=== PATIENT | male | born 1995 | race Caucasian/White ===

== ENCOUNTER 2024-11-03 21:29 | Emergency (ER) | payer OTHER ==
--- OUTSIDE RECORDS SUMMARY | 2024-11-03 21:34 | XMS REPORT | Continuity of Care Document ---
Author Name Unknown Address [address] [facility] [place] [address] [facility] [place] Address [address] [facility] [place] [address] Care Team Providers Care Legal Department Manager Name Role Phone PCP, PATIENT DOES NOT HAVE A Primary Care Physic nigel Oden RN, Emely Montero Attending Clinician [phone] NIRMAL KELLEY Attending Clinician Mariana Kaminski Attending Clinician [phone] Med Ponce MD Attending Clinician [phone] KALYN LIMA Attending Clinician Unavailable KALYN LIMA Attending Clinician Unavailable NIRMAL KELLEY Admitting Clinician Med Valentin MD Admitting Clinician [phone] KALYN LIMA Admitting Clinician Unavailable Payers Payer Name Policy Type Policy Number Effective Date Expirati on Date Source [employer] [id number] 2024 00:00:00 Problems Condition Name Condition Details Condition Category Status Onset Date Resolution Date Last Treatment Date Treating Clinician Comments Source Alcoholic cirrhosis of liver with ascites Alcoholic cirrhosis of liver with ascites Disease Active 10-10 00:00: 00 [facility] Alcoholic cirrhosis, unspecifie d whether ascites present Alcoholic cirrhosis, unspecifie d whether ascites present Disease Active 09-29 00:00: 00 [facility] Allergies, Adverse Reactions, Alerts Allergy Name Allergy Type Status Severity Reaction(s) Onset Date Inactive Date Treating Clinician Comments Source Avocado Propensi ty to adverse reaction s Active Anaphylaxis 08-30 00:00: 00 [facility] Pecan Nut Propensi ty to adverse reaction s Active Swelling 08-30 00:00: 00 [facility] AVOCADO DRUG INGREDI Active Anaphylaxis 08-30 00:00: 00 [facility] PECAN NUT DRUG INGREDI Active Swelling 08-30 00:00: 00 [facility] Social History Social Habit Start Date Stop Date Quantity Comments Source [facility] of tobacco use Passive smoker [facility] History of Social function 2024-10-10 00:00:00 2024-10-10 00:00:00 [facility] Tobacco use and exposure 2024-09-29 00:00:00 2024-09-29 00:00:00 Smokeless tobacco non-user [facility] Sex assigned at 1995 00:00:00 1995 00:00:00 [facility] Smoking Status Start Date Stop Date Source Tobacco smoking consumption unknown [facility] Smokes tobacco daily 2024-09-29 00:00:00 [facility] Medications Ordered Medication Name Filled Medication Name Start Date Stop Date Current Medication? Ordering Clinician Indication Dosage Frequency Signature (SIG) Comments Components Source Potassium Bicarb-Citr ic Acid (EFFER-K) effervescen t tablet 40 mEq Potassium Bicarb-Citr ic Acid (EFFER-K) effervescen t tablet 40 mEq 10-13 00:45: 00 10-13 01:02 :00 Yes 40meq 40 mEq, Oral, ONCE, 1 dose, On [facility] 10/12/24 at 1945, Routine [facility] spironolact one (ALDACTONE) tablet 100 mg spironolact one (ALDACTONE) tablet 100 mg 10-12 14:00: 00 10-14 23:07 :03 Yes 100mg 100 mg, Oral, DAILY, First dose (after last modificati on) on [facility] 10/12/24 at 0900, Until Discontinu ed, Routine [facility] furosemide (LASIX) tablet 40 mg furosemide (LASIX) tablet 40 mg 10-12 14:00: 00 10-14 23:07 :03 Yes 40mg 40 mg, Oral, DAILY, First dose (after last modificati on) on Mon10/12/24 at 0900, Until Discontinu ed, Routine [facility] oxyCODONE immediate release tablet 5 mg oxyCODONE immediate release tablet 5 mg 10-12 13:42: 49 10-14 23:07 :03 Yes 5mg 5 mg, Oral, Q6HPRN, Starting on Mon10/12/24 at 0842, Until Mon10/14/24 at 1807, Routine, Pain (scale 7-10), 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 change 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 member 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 Restricted medication : KAELYN BOWERS [facility] propranoloL (INDERAL) tablet 20 mg propranoloL (INDERAL) tablet 20 mg 10-12 01:00: 00 10-14 23:07 :03 Yes 20mg 20 mg, Oral, BID, First dose on Mon10/11/24 at 2000, Until Discontinu ed, Routine [facility] magnesium oxide (MAG-OX 400) 400 mg (241.3 mg magnesium) tablet 400 mg magnesium oxide (MAG-OX 400) 400 mg (241.3 mg magnesium) tablet 400 mg 10-11 15:30: 00 10-14 23:07 :03 Yes 400mg 400 mg, Oral, DAILY, First dose on Mon10/11/24 at 1030, Until Discontinu ed, Routine [facility] foLIC acid (FOLATE) tablet 1 mg foLIC acid (FOLATE) tablet 1 mg 10-11 14:00: 00 10-14 23:07 :03 Yes 1mg 1 mg, Oral, DAILY, First dose on Mon10/11/24 at 0900, Until Discontinu ed, Routine [facility] thiamine mononitrate (VITAMIN B-1 (MONONITRAT E)) tablet 100 mg thiamine mononitrate (VITAMIN B-1 (MONONITRAT E)) tablet 100 mg 10-11 14:00: 00 10-14 23:07 :03 Yes 100mg 100 mg, Oral, DAILY, First dose on Mon10/11/24 at 0900, Until Discontinu ed, Routine [facility] spironolact one (ALDACTONE) tablet 50 mg spironolact one (ALDACTONE) tablet 50 mg 10-11 14:00: 00 10-11 23:41 :48 Yes 50mg 50 mg, Oral, DAILY, First dose on Mon10/11/24 at 0900, Until Discontinu ed, Routine [facility] furosemide (LASIX) tablet 20 mg furosemide (LASIX) tablet 20 mg 10-11 14:00: 00 10-11 23:41 :48 Yes 20mg 20 mg, Oral, DAILY, First dose on Mon10/11/24 at 0900, Until Discontinu ed, Routine [facility] cefTRIAXone (ROCEPHIN) 2,000 mg in sterile water for injection 20 mL IV Push cefTRIAXone (ROCEPHIN) 2,000 mg in sterile water for injection 20 mL IV Push 10-11 09:45: 00 10-14 09:56 :00 Yes 2000mg 2,000 mg, Intravenou s, Q24H ABX, 4 doses, First dose (after last modificati on) on Mon10/11/24 at 0445, Last dose on Mon10/14/24 at 0445, 20 mL, Reason for Anti-Infec tive: Documented Infection, Documented Infection Site: Abdominal, Duration of therapy: Other (days), Other (days): 5 [facility] enoxaparin (LOVENOX) injection 40 mg enoxaparin (LOVENOX) injection 40 mg 10-10 22:00: 00 10-14 23:07 :03 Yes 40mg 40 mg, Subcutaneo us, DAILY AT 1700, First dose on Mon10/10/24 at 1700, Until Discontinu ed, Routine [facility] albumin (ALBUMINAR) 25 % injection 12.5 g albumin (ALBUMINAR) 25 % injection 12.5 g 10-10 16:30: 00 10-10 19:00 :00 Yes 12.5g 12.5 g, IV Infusion, ONCE, 1 dose, On Mon10/10/24 at 1130, 50 mL, Indication : NON-APPROV ED INDICATION - PHARMACY WILL CALL ORDERING PROVIDER, Specific Indication : Volume depletion in alcoholic cirrhosis/ hepatitis, Faculty Requesting Approval: MED PONCE, job change crew member approving Restricted medication : MED PONCE [facility] predniSONE (DELTASONE) tablet 40 mg predniSONE (DELTASONE) tablet 40 mg 10-10 15:45: 00 10-14 23:07 :03 Yes 40mg 40 mg, Oral, DAILY, 22 doses, First dose (after last modificati on) on [facility] 10/10/24 at 1045, Last dose on [facility] 10/31/24 at 0900, Routine [facility] oxazepam (SERAX) capsule 15 mg 10-10 15:33: 51 10-14 23:07 :03 No 15mg 15 mg, Oral, Q4HPRN, Starting on [facility] 10/10/24 at 1033, Until Mon10/14/24 at 1807, Routine, Only while awake for DBP equal to or greater than 100, HR equal to or greater than 100. [facility] metroNIDAZO LE in NaCl (iso-os) (FLAGYL I.V.) RTU IV infusion 500 mg metroNIDAZO LE in NaCl (iso-os) (FLAGYL I.V.) RTU IV infusion 500 mg 10-10 14:45: 00 10-11 23:44 :05 Yes 500mg 500 mg, IV Infusion, Q12H ABX, First dose on [facility] 10/10/24 at 0945, Until Discontinu ed, Administer over 60 Minutes, 100 mL, Reason for Anti-Infec tive: Documented Infection, Documented Infection Site: Abdominal, Duration of therapy: 7 days [facility] cefTRIAXone (ROCEPHIN) 1,000 mg in sterile water for injection 10 mL IV Push 10-10 10:30: 00 10-10 09:49 :00 No 1000mg 1,000 mg, Intravenou s, ONCE, 1 dose, On [facility] 10/10/24 at 0530, 10 mL, Reason for Anti-Infec tive: Empiric Therapy for Suspected Infection, Empiric Therapy Site: Abdominal, Duration of therapy: Once (ED) [facility] NaCl 0.9% (NS) IV infusion 1,000 mL 10-10 09:45: 00 10-10 15:32 :20 No 1000mL at 50 mL/hr, IV Infusion, CONTINUOUS , Starting on Mon10/10/24 at 0445, Until Mon10/10/24 at 1032, Routine [facility] ondansetron (ZOFRAN (PF)) injection 4 mg ondansetron (ZOFRAN (PF)) injection 4 mg 10-10 09:34: 04 10-14 23:07 :03 Yes 4mg 4 mg, Slow IV Push, Q6HPRN, Starting on Mon10/10/24 at 0434, Until Mon10/14/24 at 1807, Administer over 2-5 Minutes, 2 mL [facility] traMADoL (ULTRAM) tablet 50 mg traMADoL (ULTRAM) tablet 50 mg 10-10 09:33: 38 10-14 23:07 :03 Yes 50mg 50 mg, Oral, Q8HPRN, Starting on Mon10/10/24 at 0433, Until Mon10/14/24 at 1807, Routine, Pain (scale 4-6) [facility] acetaminoph en (TYLENOL) tablet 650 mg 10-10 09:33: 31 10-14 23:07 :03 No 650mg 650 mg, Oral, Q6HPRN, Starting on Mon10/10/24 at 0433, Until Mon10/14/24 at 1807, Routine, Pain (scale 1-3) [facility] iopamidol (ISOVUE 370-500 mL) injection 80 mL 10-10 07:45: 00 10-10 07:45 :00 No [id number] 80mL 80 mL, Intravenou s, ONCE, 1 dose, On Mon10/10/24 at 0245, Routine [facility] ondansetron (ZOFRAN (PF)) injection 4 mg 10-10 07:45: 00 2025- 07-17 06:39 :00 No 4mg 4 mg, Slow IV Push, ONCE, 1 dose, On Mon10/10/24 at 0245, 2 mL [facility] morpHINE (4 mg/mL) injection 4 mg morpHINE (4 mg/mL) injection 4 mg 10-10 06:32: 23 10-14 23:07 :03 Yes 4mg 4 mg, Slow IV Push, Q4HPRN, Starting on Mon10/10/24 at 0132, Until 10/14/24 at 1807, Routine, Pain (scale 7-10) [facility] thiamine mononitrate 100 mg tablet 10-04 00:00: 00 Yes [id number] 100mg Take 1 tablet by mouth in the morning. [facility] lactulose 10 gram/15 mL solution 10-04 00:00: 00 Yes [id number] 30mL Take 30 mL by mouth in the morning and 30 mL in the evening. [facility] foLIC acid 1 mg tablet 10-04 00:00: 00 Yes [id number] 1mg Take 1 tablet by mouth in the morning. [facility] polyethylen e glycol 3350 17 gram powder 10-04 00:00: 00 Yes [id number] 17g Take 1 Packet by mouth in the morning. [facility] pantoprazol e 40 mg EC tablet 10-04 00:00: 00 11-04 04:59 :00 Yes [id number] 40mg Take 1 tablet by mouth in the morning and 1 tablet in the evening. Do all this for 30 days. [facility] predniSONE 20 mg tablet 10-04 00:00: 00 11-02 04:59 :00 Yes [id number] 40mg Take 2 tablets by mouth in the morning for 28 days. [facility] predniSONE (DELTASONE) tablet 40 mg predniSONE (DELTASONE) tablet 40 mg 10-03 14:30: 00 Yes 40mg 40 mg, Oral, DAILY, First dose (after last modificati on) on Mon10/03/24 at 0930, Until Discontinu ed, Routine [facility] pantoprazol e (PROTONIX) EC tablet 40 mg pantoprazol e (PROTONIX) EC tablet 40 mg 10-03 13:00: 00 Yes 40mg 40 mg, Oral, BID, First dose on Mon10/03/24 at 0800, Until Discontinu ed, Routine [facility] diphenhydrA MINE (BENADRYL) tablet 25 mg diphenhydrA MINE (BENADRYL) tablet 25 mg 10-03 10:21: 26 10-04 13:00 :43 Yes 25mg 25 mg, Oral, Q6HPRN, Starting on Mon10/03/24 at 0521, Until Mon10/04/24 at 0800, Routine, Itching [facility] hydrOXYzine (ATARAX) tablet 25 mg hydrOXYzine (ATARAX) tablet 25 mg 10-03 04:19: 54 10-03 10:21 :44 Yes 25mg 25 mg, Oral, Q6HPRN, Starting on Mon10/02/24 at 2319, Until Mon10/03/24 at 0521, Routine, Itching [facility] lactulose (CEPHULAC) solution 30 mL lactulose (CEPHULAC) solution 30 mL 10-02 16:00: 00 Yes 30mL 30 mL, Oral, BID, First dose (after last modificati on) on Mon10/02/24 at 1100, Until Discontinu ed, [facility]ine [facility] predniSONE (DELTASONE) tablet 20 mg predniSONE (DELTASONE) tablet 20 mg 10-02 15:45: 00 10-03 13:27 :03 Yes 20mg 20 mg, Oral, DAILY, First dose on Mon10/02/24 at 1045, Until Discontinu ed, Routine [facility] polyethylen e glycol 3350 powder 17 g polyethylen e glycol 3350 powder 17 g 10-02 14:00: 00 Yes 17g 17 g, Oral, DAILY, First dose on Mon10/02/24 at 0900, Until Discontinu ed, Routine [facility] bisacodyL (DULCOLAX) tablet 5 mg bisacodyL (DULCOLAX) tablet 5 mg 10-01 19:15: 00 10-01 20:35 :00 Yes 5mg 5 mg, Oral, ONCE, 1 dose, On Mon10/01/24 at 1415, Routine [facility] magnesium sulfate in water 4 gram/50 mL (8 %) IV Piggyback 4 g magnesium sulfate in water 4 gram/50 mL (8 %) IV Piggyback 4 g 10-01 16:45: 00 10-01 18:03 :00 Yes 4g 4 g, IV Piggyback, at 25 mL/hr Administer over 120 Minutes, ONCE, 1 dose, On Mon10/01/24 at 1145, Routine [facility] KCL (KLOR-CON M20) tablet 40 mEq KCL (KLOR-CON M20) tablet 40 mEq 10-01 16:15: 00 10-01 17:53 :00 Yes 40meq 40 mEq, Oral, ONCE, 1 dose, On Mon10/01/24 at 1115, Routine [facility] KCL (KLOR-CON M20) tablet 40 mEq KCL (KLOR-CON M20) tablet 40 mEq 10-01 13:00: 00 10-01 13:11 :00 Yes 40meq 40 mEq, Oral, ONCE, 1 dose, On Mon10/01/24 at 0800, Routine [facility] foLIC acid (FOLATE) tablet 1 mg foLIC acid (FOLATE) tablet 1 mg 09-30 14:00: 00 Yes 1mg 1 mg, Oral, DAILY, First dose on Mon09/30/24 at 0900, Until Discontinu ed, Routine [facility] thiamine mononitrate (VITAMIN B-1 (MONONITRAT E)) tablet 100 mg thiamine mononitrate (VITAMIN B-1 (MONONITRAT E)) tablet 100 mg 09-30 14:00: 00 Yes 100mg 100 mg, Oral, DAILY, First dose on Mon09/30/24 at 0900, Until Discontinu ed, Routine [facility] acetaminoph en (TYLENOL) tablet 650 mg acetaminoph en (TYLENOL) tablet 650 mg 09-30 12:32: 00 09-30 13:15 :00 Yes 650mg 650 mg, Oral, ONCE NOW, 1 dose, On Mon09/30/24 at 0745, Routine [facility] NaCl 0.9% (NS) IV infusion 1,000 mL 09-30 03:15: 00 09-30 23:14 :00 No 1000mL at 50 mL/hr, IV Infusion, CONTINUOUS , Starting on Mon09/29/24 at 2215, Until Mon09/30/24 at 1814, Routine [facility] pantoprazol e (PROTONIX) 40 mg in NaCl 0.9% (NS) 10 mL syringe pantoprazol e (PROTONIX) 40 mg in NaCl 0.9% (NS) 10 mL syringe 09-30 02:15: 00 10-03 10:22 :17 Yes 40mg 40 mg, Slow IV Push, Administer over 2 Minutes, Q12H, First dose on Mon09/29/24 at 2115, Until Discontinu ed, Routine [facility] enoxaparin (LOVENOX) injection 40 mg enoxaparin (LOVENOX) injection 40 mg 09-29 22:00: 00 10-04 13:00 :43 Yes 40mg 40 mg, Subcutaneo us, DAILY AT 1700, First dose on Mon09/29/24 at 1700, Until Discontinu ed, Routine [facility] albumin (ALBUMINAR) 25 % injection 25 g 09-29 21:00: 00 09-29 21:43 :00 No 25g 25 g, IV Infusion, ONCE, 1 dose, On Mon09/29/24 at 1600, 100 mL, Indication : NON-APPROV ED INDICATION - PHARMACY WILL CALL ORDERING PROVIDER, Specific Indication : Intravascu lar volume depletion in cirrhosis, Faculty Requesting Approval: MED PONCE, job change crew member approving Restricted medication : MED PONCE [facility] oxazepam (SERAX) capsule 15 mg oxazepam (SERAX) capsule 15 mg 09-29 19:00: 20 10-04 13:00 :43 Yes 15mg [facility] ondansetron (ZOFRAN (PF)) injection 4 mg ondansetron (ZOFRAN (PF)) injection 4 mg 09-29 19:00: 15 10-04 13:00 :43 Yes 4mg 4 mg, Slow IV Push, Q6HPRN, Starting on Mon09/29/24 at 1400, Until Mon10/04/24 at 0800, Administer over 2-5 Minutes, 2 mL [facility] morpHINE (4 mg/mL) injection 4 mg morpHINE (4 mg/mL) injection 4 mg 09-29 19:00: 03 10-04 13:00 :43 Yes 4mg 4 mg, Slow IV Push, Q4HPRN, Starting on Mon09/29/24 at 1400, Until Mon10/04/24 at 0800, Routine, Pain (scale 7-10) [facility] traMADoL (ULTRAM) tablet 50 mg traMADoL (ULTRAM) tablet 50 mg 09-29 18:59: 58 10-04 13:00 :43 Yes 50mg 50 mg, Oral, Q8HPRN, Starting on Mon09/29/24 at 1359, Until Mon10/04/24 at 0800, Routine, Pain (scale 4-6) [facility] iopamidol (ISOVUE 370-500 mL) injection 85 mL 09-29 18:15: 00 09-29 18:15 :00 No [id number] 85mL 85 mL, Intravenou s, ONCE, 1 dose, On Mon09/29/24 at 1315, Routine [facility] ondansetron (ZOFRAN (PF)) injection 4 mg 09-29 17:30: 00 09-29 17:47 :00 No 4mg 4 mg, Slow IV Push, ONCE, 1 dose, On Mon09/29/24 at 1230, Administer over 2-5 Minutes, 2 mL [facility] maalox/diph enhydrAMINE :lidocaine2 %viscous 1:1:1: suspension (COMPOUNDED ) 08-30 18:15: 00 08-30 18:16 :00 No 15mL 15 mL, Oral, ONCE, 1 dose, On Mon08/30/24 at 1315, RAYMOND [facility] pantoprazol e (PROTONIX) 40 mg in NaCl 0.9% (NS) 10 mL syringe 08-30 18:15: 00 08-30 18:20 :00 No 40mg 40 mg, Slow IV Push, Administer over 2 Minutes, ONCE, 1 dose, On Mon08/30/24 at 1315[facility] (ISOVUE 370-500 mL) injection 85 mL 08-30 17:30: 00 08-30 17:30 :00 No [id number] 85mL 85 mL, Intravenou s, ONCE, 1 dose, On Mon08/30/24 at 1230, Routine [facility] LORazepam (ATIVAN) injection 1 mg 08-30 16:00: 00 08-30 15:47 :00 No 1mg 1 mg, Slow IV Push, ONCE, 1 dose, On Mon08/30/24 at 1100, STAT [facility] chlordiazeP OXIDE 10 mg capsule 08-30 00:00: 00 09-29 00:00 :00 No [id number] Day 1 10 mg q6 Day 2 10 mg q8 Day 3 10 mg q8 Day 4 10 mg q8 Day 5 10 mg q12 [facility] pantoprazol e 40 mg EC tablet 08-30 00:00: 00 09-29 00:00 :00 No [id number] 40mg Take 1 tablet by mouth in the morning. [facility] ondansetron 4 mg disintegrat ing tablet 08-30 00:00: 00 09-29 00:00 :00 No [id number] 4mg Take 1 tablet by mouth every 4 hours as needed for Nausea and Vomiting (N/V). [facility] sucralfate 1 gram tablet 08-30 00:00: 00 09-29 00:00 :00 No [id number] 1g Take 1 tablet by mouth before meals and at bedtime. [facility] Vital Signs Vital Name Observation Time Observation Value Comments Mitch jimenez Systolic blood pressure 2024-10-14 20:37:00 109 mm[Hg] [facility] Diastolic blood pressure 2024-10-14 20:37:00 57 mm[Hg] [facility] Heart rate 2024-10-14 20:37:00 55 /min Un[facility] Body temperature 2024-10-14 20:37:00 36.56 Kamilah [facility] Respiratory rate 2024-10-14 20:37:00 16 /min [facility] Oxygen saturation in Arterial blood by Pulse oximetry 2024-10-14 20:37:00 99 /min [facility] Body weight 2024-10-14 08:21:00 73.982 kg [facility] BMI 2024-10-14 08:21:00 25.55 kg/m2 [facility] Body height 2024-10-10 06:28:00 170.2 cm [facility] Systolic blood pressure 2024-10-04 12:09:00 124 mm[Hg] [facility] Diastolic blood pressure 2024-10-04 12:09:00 84 mm[Hg] [facility] Heart rate 2024-10-04 12:09:00 95 /min [facility] Body temperature 2024-10-04 12:09:00 37.22 Kamilah [facility] Respiratory rate 2024-10-04 12:09:00 19 /min [facility] Oxygen saturation in Arterial blood by Pulse oximetry 2024-10-04 12:09:00 94 /min [facility] Body weight 2024-10-04 09:00:00 74.481 kg [facility] BMI 2024-10-04 09:00:00 25.72 kg/m2 [facility] Body height 2024-10-01 17:11:00 170.2 cm [facility] Systolic blood pressure 2024-08-30 19:00:00 124 mm[Hg] [facility] Diastolic blood pressure 2024-08-30 19:00:00 71 mm[Hg] [facility] Heart rate 2024-08-30 19:00:00 94 /min [facility] Body temperature 2024-08-30 19:00:00 36.39 Kamilah [facility] Respiratory rate 2024-08-30 19:00:00 16 /min [facility] Oxygen saturation in Arterial blood by Pulse oximetry 2024-08-30 19:00:00 94 /min [facility] Body height 2024-08-30 15:07:00 170.2 cm [facility] Body weight 2024-08-30 15:07:00 74.844 kg [facility] BMI 2024-08-30 15:07:00 25.84 kg/m2 [facility] Procedures Procedure Date / Time Performed Performing Clinician Source US ABDOMEN LIMITED 2024-10-14 13:22:55 Kaelyn Bowers [facility] MAGNESIUM 2024-10-14 09:50:00 Michelle Lopez [facility] COMP. METABOLIC PANEL ([id number]) 2024-10-14 09:50:00 Kaelyn Bowers [facility] CBC WITH DIFF 2024-10-14 09:50:00 Kaelyn Bowers [facility] MAGNESIUM 2024-10-13 10:02:00 Kaelyn Bowers [facility] COMP. METABOLIC PANEL ([id number]) 2024-10-13 10:02:00 Kaelyn Bowers [facility] CBC WITH DIFF 2024-10-13 10:02:00 Kaelyn Bowers [facility] PROTHROMBIN TIME / INR 2024-10-13 10:02:00 Jayy Bowers [facility] MAGNESIUM 2024-10-12 09:27:00 Kris Med [facility] HEPATIC FUNCTION PANEL ([id number]) (ALB,T.PRO,BILI T,BU/BC,ALT,AST,ALK PHOS) 2024-10-12 09:27:00 Med Ponce [facility] BASIC METABOLIC PANEL (NA, K, CL, CO2, GLUCOSE, BUN, CREATININE, CA) 2024-10-12 09:27:00 Med Ponce [facility] CBC WITH DIFF 2024-10-12 [facility] 2024-10-11 09:07:00 Edgar Kelley mmad [facility] LIPASE 2024-10-11 08:59:00 Nirmal Kelley [facility] MAGNESIUM 2024-10-11 08:59:00 Nirmal Kelley [facility] COMP. METABOLIC PANEL ([id number]) 2024-10-11 08:59:00 Nirmal Kelley [facility] CBC WITH DIFF 2024-10-11 08:59:00 [facility]irm[facility] / INR 2024-10-11 08:59:00 Rojelio Kelley [facility] ACTIVATED PARTIAL THRMPLAS RAKESH 2024-10-11 08:59:00 Nirmal Kelley [facility] IR PARACENTESIS/PERITONECEN TESIS WITH IMAGING 2024-10-10 18:20:00 Irlanda Nikko [facility] ALBUMIN BODY FLUID 2024-10-10 18:10:00 Irlanda Nikko [facility] T.PROTEIN BODY FLUID 2024-10-10 18:10:00 Maris Ponce i [facility] BODY FLUID DIRECT COUNT 2024-10-10 18:10:00 Jairo Ponce [facility] BODY FLUID CULTURE(AEROBIC/ANAEROBI C) 2024-10-10 18:10:00 Med Ponce [facility] LDH TOTAL BODY FLUID 2024-10-10 18:10:00 Maris Ponce i [facility] CYTO ABDOMINAL FLUID 2024-10-10 17:43:00 Maris Ponce i [facility] MA ABDOM PARACENTESIS DX/THER W/IMAGING GUIDANCE 2024-10-10 10:05:00 Perdomo, [facility] CT ABDOMEN PELVIS W CONTRAST 2024-10-10 06:54:39 Singer [facility] LIPASE 2024-10-10 06:36:00 Singer [facility] BILI UNCONJUGATED/BILI CONJUG 2024-10-10 06:36:00 Singer [facility] COMP. METABOLIC PANEL ([id number]) 2024-10-10 06:36:00 Singer [facility] CBC WITH DIFF 2024-10-10 06:36:00 Singer [facility] [facility] PROTHROMBIN TIME / INR 2024-10-10 06:36:00 Singer [facility] LACTIC ACID WITH 2 HOUR REFLEX 2024-10-10 06:36:00 Singer [facility] HEPATIC FUNCTION PANEL ([id number]) (ALB,T.PRO,BILI T,BU/BC,ALT,AST,ALK PHOS) 2024-10-04 09:26:00 Aleshia Lainez [facility] BASIC METABOLIC PANEL (NA, K, CL, CO2, GLUCOSE, BUN, CREATININE, CA) 2024-10-04 09:26:00 Aleshia Lainez Rachel [facility] AMMONIA, PLASMA 2024-10-03 14:10:00 Aleshia Lainez [facility] PROTHROMBIN TIME / INR 2024-10-03 08:41:00 Kostas Lainez Rachel [facility] HEPATIC FUNCTION PANEL ([id number]) (ALB,T.PRO,BILI T,BU/BC,ALT,AST,ALK PHOS) 2024-10-03 08:41:00 Aleshia Lainez [facility] BASIC METABOLIC PANEL (NA, K, CL, CO2, GLUCOSE, BUN, CREATININE, CA) 2024-10-03 08:41:00 Aleshia Lainez [facility] CBC WITH DIFF 2024-10-03 08:41:00 Aleshia Lainez [facility] MAGNESIUM 2024-10-02 08:23:00 [facility]ASMA 2024-10-02 08:23:00 Aleshia Lainez [facility] COMP. METABOLIC PANEL ([id number]) 2024-10-02 08:23:00 Kaelyn Bowers [facility] CBC WITH DIFF 2024-10-02 08:23:00 Kaelyn Bowers [facility] PROTHROMBIN TIME / INR 2024-10-02 08:23:00 Jayy Bowers [facility] MAGNESIUM 2024-10-01 08:43:00 Gilda oLpez [facility] HEPATIC FUNCTION PANEL ([id number]) (ALB,T.PRO,BILI T,BU/BC,ALT,AST,ALK PHOS) 2024-10-01 08:43:00 Gilda Lopez [facility] BASIC METABOLIC PANEL (NA, K, CL, CO2, GLUCOSE, BUN, CREATININE, CA) 2024-10-01 08:43:00 Gilda Lopez [facility] ALPHA FETOPROTEIN 2024-10-01 08:43:00 Nirmal Kelley [facility] CBC WITH DIFF 2024-10-01 08:43:00 Gilda Lopez [facility] PROTHROMBIN TIME / INR 2024-10-01 08:43:00 Gregor Lopez [facility] MAGNESIUM 2024-09-30 08:52:00 Med Ponce [facility] HEPATIC FUNCTION PANEL ([id number]) (ALB,T.PRO,BILI T,BU/BC,ALT,AST,ALK PHOS) 2024-09-30 08:52:00 Med Ponce [facility] BASIC METABOLIC PANEL (NA, K, CL, CO2, GLUCOSE, BUN, CREATININE, CA) 2024-09-30 08:52:00 Med Ponce [facility] CBC WITH DIFF 2024-09-30 08:52:00 Med Ponce [facility] CT ABDOMEN PELVIS W CONTRAST 2024-09-29 17:59:47 Mariana Gamez [facility] ACTIVATED PARTIAL THRMPLAS RAKESH 2024-09-29 17:39:00 Mariana Gamez [facility] LIPASE 2024-09-29 17:39:[address] [facility] MAGNESIUM 2024-09-29 17:39:00 Mariana Gamez [facility] AMMONIA, PLASMA 2024-09-29 17:39:[address] [facility] [address] COMP. METABOLIC PANEL ([id number]) 2024-09-29 17:39:00 Mariana Gamez [facility] ETHANOL 2024-09-29 17:39:00 Mariana Gamez [facility] CBC WITH DIFF 2024-09-29 17:39:00 Mariana Gamez [facility] PROTHROMBIN TIME / INR 2024-09-29 17:39:00 Fozia Gamez [facility] URINALYSIS 2024-08-30 17:17:00 [facility] URINE DRUG (IMMUNOASSAY) - COMPREHENSIVE DRUG SCREEN W/O REFLEX 2024-08-30 17:17:00 Kalyn Lima [facility] FENTANYL (IMMUNOASSAY) 2024-08-30 17:17:00 Rk Lima [facility] CT ABDOMEN PELVIS W CONTRAST 2024-08-30 16:30:35 Kalyn Lima [facility] CT HEAD WO CONTRAST 2024-08-30 16:19:06 Chintan Lima [facility] LIPASE 2024-08-30 15:35:00 Kalyn Lima [facility] COMP. METABOLIC PANEL ([id number]) 2024-08-30 15:35:00 Kalyn Lima [facility] ETHANOL 2024-08-30 15:35:00 [facility] CBC WITH DIFF 2024-08-30 15:35:00 Kalyn Lima [facility] Encounters Start Date/Time End Date/Time Encounter Type Admission Type Attending Clinicians Care Facility Care Department Encounter ID Source 2024-10-15 00:00:00 2024-10-15 09:30:30 Transition of Care Emely Oden Marisa M [facility] [id number] [facility] 2024-10-10 01:29:00 2024-10-14 17:14:00 Hospital Encounter X NIRMAL KELLEY [facility] [id number] [facility] 2024-09-29 12:15:00 2024-10-04 07:37:00 Hospital Encounter X Mariana Gamez Jelani [facility] [id number] [facility] 2024-08-30 10:07:00 2024-08-30 15:00:00 Emergency X ALEXANDRE KALYN RIZVI [facility] ERT [id number] [facility] Results Test Description Test Time Test Comments Results Resul t Comments Source US Abdomen limited 2024-10-14 14:15:01 US ABDOMEN LIMITED 10/14/2024 7:14 AM HISTORY: R/O ascites . COMPARISON: [facility] abdomen [facility] with imaging 2024-10-11 19:15:13EXAMINATION: IMAGE GUIDED PARACENTESIS HISTORY/INDICATION: Diagnostic/therapeutic paracentesis ATTENDING: MD Irlanda SEDATION: The patient did not require conscious sedation for the procedure. TECHNIQUE: The risks, benefits and alternatives were discussed and informedconsent was obtained. Prior tobeginning the procedure, Blair Protocolwas performed to confirm the patient's identity and the planned procedure.Maximum sterile barriers including cap, mask, hand hygiene, sterile gloves,sterilegown, large sterile drape and cutaneous antisepsis were used. The patient's right upper quadrant was examined with ultrasound and freefluid was identified. The skin overlying this area was anesthetized with 1percent lidocaine. Using real-time ultrasound guidance a Yueh needle wasadvanced into the peritoneal space. Approximately 400 mL of serous yellow fluid was drained. Samples were sent for analysis. At the conclusion of the procedure the catheter was removed and a steriledressing applied to the site. ESTIMATED BLOOD LOSS: Minimal. CONDITION: Stable. DISCHARGED TO: Patient care division. FINDINGS: Ultrasound demonstrated a small amount of ascites. [facility] Whole [id number] 09:29:28* Test Item Value Reference Range Interpretation Comme nts LACTIC ACID (test code = 6955341205) 1.09 mmol/L 0.50-2.20 Lab Interpretation (test cod e = 81908-8) Normal [facility]acent[facility]2025-07-17 10:05:00Jazmyne Perdomo, ? ? 10/10/2024 ?5:45 AMParacentesis Date/Time: 10/10/2024 5:05 AM Performed by: Jazmyne Perdomo DOAuthorized by: Jazmyne Perdomo DO ?Consent: ?Consent obtained: ?Written ?Consent given by: ?Patient ?Risks discussed: ?Pain, infection and bowel perforation ?Alternatives discussed:?No treatmentUniversal protocol: ?Patient identity confirmed: ?Verbally with patientPre-procedure de tails: ?Procedure purpose: ?Therapeutic ?Preparation: Patient was prepped and draped in usual sterile fashion ?Anesthesia: ?Anesthesia method: ?Local infiltration ?Local anesthetic: ?Lidocaine 1% WITH epiProcedure details: ?Needle gauge: ?18 ?Ultrasound guidance: yes ? ?Puncture site: ?L lower quadrant ?Fluid removed amount: ?2.5L ?Fluid appearance: ?YellowPost-procedure details: ?Procedure completion: ?[facility]Un[facility] Hospital[facility] with Diff 2024-10-10 08:15:34* Test Item Value Reference Range Interpretation Comme nts WBC (test code = 6690-2) 16.28 4.20-10.70 H RBC (test code = 789-8) 3.65 4.26-5.52 L HGB (test code = 718-7) 11.9 g/dL 12.2-16.4 L HCT (test code = 4544-3) 35.7 % 38.4-49.3 L MCV (test code = 787-2) 97.8 fL 81.7-95.6 H MCH (test code = 785-6) 32.6 pg 26.1-32.7 MCHC (test code = 786-4) 33.3 g/dL 31.2-35.0 RDW-SD (test code = 87263-5) 62.4 fL 38.5-51.6 H RDW-CV (test code = 788-0) 17.3 % 12.1-15.4 H PLT (test code = 777-3) 264 150-328 MPV (test code = 28374-7) 11.4 fL 9.8-13.0 NRBC/100 WBC (test code = 8545209995) 0 0.0-10.0 NRBC x10^3 (test code = 5449688310) See_Comment [Automated message] The system which generated this result transmitted reference range: 10*3/?L. The reference range was not used to interpret this result as normal/abnormal. GRAN MAT (NEUT) % (test code = 770-8) 62.3 % IMM GRAN % (test code = 2956299642) 0.7 % LYMPH % (test code = 736-9) 18.7 % MONO % (test code = 5905-5) 14.6 % EOS % (test code = 713-8) 2.3 % BASO % (test code = 706-2) 1.4 % GRAN MAT x10^3(ANC) (test code = 0057210775) 10.14 10*3/uL 1.99-6.95 H IMM GRAN x10^3 (test code = 0895303870) 0.12 10*3/uL 0.00-0.06 H LYMPH x10^3 (test code = 731-0) 3.05 10*3/uL 1.09-3.23 MONO x10^3 (test code = 742-7) 2.37 10*3/uL 0.36-1.02 H EOS x10^3 (test code = 711-2) 0.37 10*3/uL 0.06-0.53 BASO x10^3 (test code = 704-7) 0.23 10*3/uL 0.01-0.09 H Lab Interpretation (test code = 35519-7) Abnormal [facility] w [id number] 07:51:05Ordering physician: JAZMYNE PERDOMO Indication: Abdominal pain and distention COMPARISON: CT the abdomen and pelvis dated 09/29/2024 TECHNIQUE: Axial images of the abdomen and pelvis are performed followingadministration of intravenous contrast material. Images were reformatted inthe coronal and sagitt al plane. CT scan was performed according to ALARA(as low as reasonably achievable) policy. FINDINGS: There is linear atelectasis in the lower lobes. There are largeesophageal varices. There is marked diffuse heterogeneity of the liverparenchyma, with hepatomegaly and irregularity of the liver contour. Thereis a stable more focal hypoattenuating observation in the caudate lobe,measuring 7.7 cm (series 2, image 42). The spleen is enlarged at 13 cm inlong axis. There is cholelithiasis without evidence for acutecholecystitis. The adrenal glands and pancreas are within normal limits.There are small nonobstructing calculi in the kidneys bilaterally,measuring up to 4 mm. No abdominal aortic aneurysm or dissection isappreciated. There is diffuse thickening of the wall and folds of thestomach andsmall bowel loops. There is moderate free fluid in the abdomen and pelvis. There is no bowelobstruction. The appendix is identified and within normal limits. ?Bonewindows through the abdomen and pelvis demonstrate no osseous destructivelesion.[facility]. Metabolic Panel ([id number])2024-10-10 06:57:54* Test Item Value Reference Range Interpretation Comme nts NA (test code = 0188335975) 138 mmol/L 135-145 K (test code = 6365462483) 3.3 mmol/L 3.5-5.0 L CL (test code = 7447786916) 104 mmol/L 98-108 CO2 TOTAL (test code = 1592963884) 21 mmol/L 23-31 L AGAP (test code = 8858818896) 13 2-16 BUN (test code = 5144318434) 5 mg/dL 7-23 L GLUCOSE (test code = 8158515373) 127 mg/dL 70-110 H CREATININE (test code = 2160-0) 0.53 mg/dL 0.60-1.25 L TOTAL BILI (test code = 7530890406) 11.7 mg/dL 0.1-1.1 H CALCIUM (test code = 9112067201) 7.9 mg/dL 8.6-10.6 L T PROTEIN (test code = 9800648612) 7.9 g/dL 6.3-8.2 ALBUMIN (test code = 8920508297) 3.5 g/dL 3.5-5.0 ALK PHOS (test code = 1440369846) 468 U/L 34-122 H ALTv (test code = 1742-6) 79 U/L 5-50 H AST(SGOT) (test code = 5137670074) 294 U/L 13-40 H eGFR (test code = 17090-6) 138.3 mL/min/1.73m2 CKD-EPI eGFR (2020). Assuming creatinine has been stable day-to-day for at least three months, the eGFR indicates Category G1 (>= 90 mL/min/1.73 m2) Lab Interpretation (test code = 47359-6) Abnormal [facility] CampusLipase2025-07-17 06:57:54* Test Item Value Reference Range Interpretation Comme [facility] LIPASE (test code = 8342449888) 127 U/L 0-220 Lab Interpretation (test cod e = 01710-7) Normal [facility] CampusBili Unconjugated/Bili Berpkh3575-19-39 06:57:13* Test Item Value Reference Range Interpretation Comme nts BILI CONJ (test code = 8919027410) 2.5 mg/dL 0.0-0.3 H BILI UNCON (test code = 5891597677) 1.9 mg/dL 0.1-1.1 H Lab Interpretation (test cod e = 92627-9) Abnormal [facility] CampusProthrombin Time / [id number] 06:52:15* Test Item Value Reference Range Interpretation Comme nts PROTIME PATIENT (test code = 5964-2) 15 10.1-12.6 H INR (test code = 6301-6) 1.3 <=4.5 Normal INR <1.1; Warfarin Therapeutic range 2.0 to 3.0 or 2.5 to 3.5, depending upon the indications. Lab Interpretation (test code = 05312-8) Abnormal [facility] CampusLactic Acid with 2 Hour [id number] 06:45:30* Test Item Value Reference Range Interpretation Comme nts LACTIC ACID (test code = 9934906044) 1.93 mmol/L 0.50-2.20 Lab Interpretation (test cod e = 65617-0) Normal [facility] Abdom[facility] pelvis w [id number] 18:23:54EXAM: CT ABDOMEN PELVIS WITH CONTRAST HISTORY: 29-year-old male with PMH of alcohol induced cirrhosis presentedwith abdominal pain and jaundice. COMPARISON: CT abdomen and pelvis dating back to 08/07/2024. TECHNIQUE AND FINDINGS: Contiguous axial imaging of the abdomen and pelvisstarting from from the level of the lung bases to the level of ?proximalthighs was performed after the administration ofintravenous contrast.Coronal and sagittal reconstructions were obtained. ?Auto mA and/oriterative reconstruction were used to reduce radiation dose. FINDINGS: LOWER THORAX: The lungs bases are clear.No cardiomegaly. Large mucosal andsubmucosal esophageal variceal complex. LIVER: Enlarged liver (27.6 cm) with nodular hepatic contour. Diffuselyheterogenous appearance of the hepatic parenchyma withill-definedhypoattenuating masses/lesions. No filling defects within the main portalveins. GALLBLADDER AND BILIARY TREE: No biliary ductal dilation. ?No gallbladderwall thickening. Radiopaque cholelithiasis. SPLEEN: No splenomegaly. PANCREAS: No ductal dilation or masses. ADRENAL GLANDS: No adrenalnodules. KIDNEYS: No hydronephrosis, or masses. Nonobstructive bilateralnephrolithiasis measuring up to 0.7 cm. PERITONEUM AND RETROPERITONEUM: Interval development of small volumeascites. LYMPH NODES: No lymphadenopathy. GI TRACT: Diffuse wall thickening of the bowels, likely due to underlyingportal hypertension. PELVIS/BLADDER: Unremarkable. VESSELS: Unremarkable. BONES AND SOFT TISSUES: No suspicious lytic or sclerotic bony lesions. Softtissue stranding and focal calcification about the leftgluteal regionadjacent to the jacob cleft.[facility]CT Abdomen pelvis w [id number] 17:28:07ORDERING PHYSICIAN: KALYN LIMA. HISTORY: Pancreatitis, acute, severe ? TECHNIQUE: CT abdomen and pelvis with intravenous contrast. ?CT wasperformed according to ALARA (As Low As Reasonably Achievable). ? COMPARISON: 08/07/2024 FINDINGS: Abdomen: Visualized Chest: Visualized portions of the lungsshow no consolidation oreffusions. Liver And Biliary Tree: The liver is diffusely heterogeneous, enlarged, andhas a lobulated contour. Fatty infiltration is noted. A low-density 8.9 cmlesion within the caudate lobe may represent focal hepatic steatosis (image31/2). The portal vein is patent. There is recanalization of the umbilicalvein. Diffuse paraesophageal and gastric varices are present. A minisculevolume of ascites is stable. Spleen: Spleen is enlarged, measuring 14.3 cm. Kidneys: Bilateral nonobstructive calyceal calculi are present, measuringup to 4 mm (image 47/2). There is no hydronephrosis. Kidneys enhancesymmetrically. Adrenals: No adrenal masses are identified. Pancreas: No pancreatic masses are identified. Lymph Nodes: No adenopathy is identified. Aorta: No aneurysms are seen. Small Bowel: No hiatal hernia is present. The terminal ileum is normal. PELVIS: Colon: The appendix is normal. Remainder of colon is normal. Bladder: The bladder wall is smooth. Reproductive Organs:The prostate is normal. Osseous Structures: No suspicious lesions are identified.[facility]CT Head wo [id number] 16:22:10EXAM: CT HEAD WO CONTRAST HISTORY: 29 years-old Male; Provided indication: Head trauma,moderate-severe . TECHNIQUE: Axial CT of the head was performed and reconstructed at 5 mmintervals. Coronal and sagittal reformatted images were generated. COMPARISON: None FINDINGS: The ventricles and cerebral sulci are normal in caliber and configuration.No midline shift or pathological extra-axial fluid collection is present.The basal cisterns are unremarkable. No acute intracranial hemorrhage or significant mass effect is visualized.No parenchymal attenuation abnormality is seen. The gil-white matterdifferentiation is preserved. The mastoid air cells and paranasal air sinuses are clear. The calvariumand central skull base are unremarkable. [facility] History and Physical Notes Date/Time Note Provider Source 2024-10-10 06:52:25 [facility] Hospitalist Admission H&P Date of Service: 10/10/2024 CHIEF COMPLAINT: Abdominal pain with distention HISTORY OF PRESENT ILLNESS Jose Kang is a 29 year old male who presents with abdominal pain and distention. Patient has a history of liver disease and he continues to drink. He says whenever he drinks his liver numbers improved. Tried to reeducate him regarding this thought process. Patient states he does understand that that is probably not how it works but that is what he believes. His bilirubin is actually improved from when he was in the ER couple of days ago. At that time his bilirubin came back at 16.1. Today is 11.7. This is alcoholic liver cirrhosis as he has been continue to drink. Patient has LFTs are also mildly elevated. Patient will gently be hydrated and will give albumin. Will also start on steroids. Continue monitoring liver numbers and if they worsen then possibly transfer to hematology. Otherwise patient will need to refrain from alcohol use and he needs to follow-up with GI and hepatology in the near future. Patient will be admitted to the IMU for closer monitoring as he is a big drinker and concerned that he may go through DTs. PAST MEDICAL HISTORY Liver cirrhosis PAST SURGICAL HISTORY No past surgical history on file. ALLERGIES Allergies Allergen Reactions Avocado Anaphylaxis Pecan Nut Swelling MEDICATIONS Current home medication list reviewed: Current Discharge Medication List STOP taking these medications foLIC acid 1 mg tablet Comments: Reason for Stopping: lactulose 10 gram/15 mL solution Comments: Reason for Stopping: pantoprazole 40 mg EC tablet Comments: Reason for Stopping: polyethylene glycol 3350 17 gram powder Comments: Reason for Stopping: predniSONE 20 mg tablet Comments: Reason for Stopping: thiamine mononitrate 100 mg tablet Comments: Reason for Stopping: FAMILY HISTORY No family history on file. SOCIAL HISTORY Social History Socioeconomic History Marital status: Single Tobacco Use Smoking status: Every Day Current packs/day: 1.00 Types: Cigarettes Passive exposure: Current Smokeless tobacco: Never Social Drivers of Health Food Insecurity: No Food Insecurity (09/30/2024) NCSS - Food Insecurity Worried About Running Out of Food in the Last Year: No Ran Out of Food in the Last Year: No Transportation Needs: No Transportation Needs (09/30/2024) NCSS - Transportation Lack of Transportation: No Housing Stability: Not At Risk (09/30/2024) NCSS - Housing/Utilities Has Housing: Yes Worried About Losing Housing: No Unable to Get Utilities: No REVIEW OF SYSTEMS 10 systems negative except per HPI PHYSICAL EXAMINATION BP 120/76 | Pulse 94 | Temp 37.1 ?C (98.7 ?F) (Oral) | Resp 19 | Ht 1.702 m (5' 7") | Wt 86.2 kg (190 lb) | SpO2 92% | BMI 29.76 kg/m? General: No acute distress HEENT: Normal oral mucosa, anicteric sclerae, NCAT Cardiovascular: RRR Lungs: Symmetric expansion, clear bilaterally Abdomen: Soft, NTND Musculoskeletal: No synovitis, normal muscle mass Genitourinary: Deferred Skin: No rash, no skin lesions Extremities: No clubbing, no cyanosis, no lower extremity edema Neuro: AAOx3, no focal deficits Psych: Normal affect LABS - reviewed pertinent labs as below: CBC BMP PT/INR WBC (10*3/?L) Date Value 10/10/2024 16.28 (H) NA (mmol/L) Date Value 10/10/2024 138 No results found for: "PT" RBC (10*6/?L) Date Value 10/10/2024 3.65 (L) K (mmol/L) Date Value 10/10/2024 3.3 (L) INR (no units) Date Value 10/10/2024 1.3 PLT (10*3/?L) Date Value 10/10/2024 264 CALCIUM (mg/dL) Date Value 10/10/2024 7.9 (L) HGB (g/dL) Date Value 10/10/2024 11.9 (L) CL (mmol/L) Date Value 10/10/2024 104 aPTT HCT (%) Date Value 10/10/2024 35.7 (L) BUN (mg/dL) Date Value 10/10/2024 5 (L) APTT Patient (Seconds) Date Value 09/29/2024 40 (H) CREATININE (mg/dL) Date Value 10/10/2024 0.53 (L) IMAGING - reviewed, pertinent results as below: Hospital Encounter on 10/10/24 CT Abdomen pelvis w contrast Narrative Ordering physician: JAZMYNE PERDOMO Indication: Abdominal pain and distention COMPARISON: CT the abdomen and pelvis dated 09/29/2024 TECHNIQUE: Axial images of the abdomen and pelvis are performed following administration of intravenous contrast material. Images were reformatted in the coronal and sagittal plane. CT scan was performed according to ALARA (as low as reasonably achievable) policy. FINDINGS: There is linear atelectasis in the lower lobes. There are large esophageal varices. There is marked diffuse heterogeneity of the liver parenchyma, with hepatomegaly and irregularity of the liver contour. There is a stable more focal hypoattenuating observation in the caudate lobe, measuring 7.7 cm (series 2, image 42). The spleen is enlarged at 13 cm in long axis. There is cholelithiasis without evidence for acute cholecystitis. The adrenal glands and pancreas are within normal limits. There are small nonobstructing calculi in the kidneys bilaterally, measuring up to 4 mm. No abdominal aortic aneurysm or dissection is appreciated. There is diffuse thickening of the wall and folds of the stomach and small bowel loops. There is moderate free fluid in the abdomen and pelvis. There is no bowel obstruction. The appendix is identified and within normal limits. Bone windows through the abdomen and pelvis demonstrate no osseous destructive lesion. Impression Manifestations of cirrhosis with moderate ascites, similar to slightly worsened compared to the previous exam. There is marked heterogeneity of the liver parenchyma, with a more focal hypoattenuating observation in the caudate lobe measuring 7.7 cm. Follow-up with dedicated liver mass protocol MRI is recommended to more definitively assess for hepatocellular carcinoma. Moderate ascites is slightly increased compared to the previous exam. Cholelithiasis without evidence for acute cholecystitis. Bilateral nonobstructing renal calculi, measuring up to 4 mm. Diffuse thickening of the wall and folds of the stomach and proximal small bowel with mucosal enhancement, similar compared to the previous exam, likely reflecting portal gastropathy/enteropathy. RL: 460 AF: 48249 SSMENT/PLAN: 1. Alcoholic liver cirrhosis with acute hepatitis secondary to alcohol use; will continue with IV hydration and will give fluids gently. Give albumin as needed. If patient has bilirubin increases or coagulation worsens then we may give a low-dose steroids but at this time we will hold off. Review paracentesis fluid collection. Patient had 1.5 L removed in the ER. Continue monitoring him closely 2. Leukocytosis; continue with antibiotic therapy for possible spontaneous bacterial peritonitis. Will continue with ceftriaxone and Flagyl at this time. 3. GI DVT prophylaxis DVT prophylaxis: enoxaparin Stress ulcer prophylaxis: pantoprazole Code status: FULL Advanced Care Planning (Z71.89) Above assessment and plan discussed at length with patient, patient expressed full understanding. Questions and concerned addressed. Surrogate decision maker: NO Level of care expected after discharge: HOME Time spent: 3 minutes discussing the advanced care plan Smoking Cessation: (Z71.6) Tobacco user?: NO Patient will require inpatient stay of 2 midnights or more given high risk of morbidity and mortality [place] [employer] was verified during stay Nirmal Kelley MD [facility] 2024-09-29 23:40:52 [facility] Hospitalist Admission H&P Date of Service: 09/29/2024 CHIEF COMPLAINT: Patient presents with shortness of breath and abdominal pain and history of alcohol abuse and alcoholic liver cirrhosis. HISTORY OF PRESENT ILLNESS Jose Kang is a 29 year old male who presents with shortness of breath and abdominal pain. Patient has a history of alcohol abuse and has had diagnosis of alcoholic liver cirrhosis. He has required paracentesis in the past. He was here about a month ago and he had a total bilirubin of 13.0. A month before that he was only at 3.8. Currently, patient's bilirubin is 14.7. Will continue with gentle hydration and reassess labs in the morning. Patient's ALT and AST were elevated at 590/87. Patient's alkaline phosphatase was 850. Patient CT scan showed small mild ascites with changes of cirrhosis and advanced portal hypertension with esophageal varices. Unable to rule out underlying liver mass. Will check alpha-fetoprotein levels. Patient is also placed on medication for DT prevention. Patient will be admitted to the hospital for inpatient hospitalization. If any changes in his clinical status will upgrade as clinically indicated. Patient will get started on a PPI as well and will continue with acetaminophen low-dose for pain control and fever and refrain from using NSAIDs at this time. PAST MEDICAL HISTORY Liver cirrhosis Alcohol abuse PAST SURGICAL HISTORY Paracentesis ALLERGIES Allergies Allergen Reactions Avocado Anaphylaxis Pecan Nut Swelling MEDICATIONS Current home medication list reviewed: There are no discharge medications for this patient. FAMILY HISTORY No family history on file. SOCIAL HISTORY Social History Socioeconomic History Marital status: Single Tobacco Use Smoking status: Every Day Current packs/day: 1.00 Types: Cigarettes Passive exposure: Current Smokeless tobacco: Never REVIEW OF SYSTEMS 10 systems negative except per HPI PHYSICAL EXAMINATION BP 123/83 | Pulse 113 | Temp 37.1 ?C (98.8 ?F) | Resp 18 | Ht 1.702 m (5' 7") | Wt 75 kg (165 lb 4.8 oz) | SpO2 93% | BMI 25.89 kg/m? General: No acute distress HEENT: Normal oral mucosa, anicteric sclerae, NCAT Cardiovascular: RRR Lungs: Symmetric expansion, clear bilaterally Abdomen: Soft, NTND Musculoskeletal: No synovitis, normal muscle mass Genitourinary: Deferred Skin: No rash, no skin lesions Extremities: No clubbing, no cyanosis, no lower extremity edema Neuro: AAOx3, no focal deficits Psych: Normal affect LABS - reviewed pertinent labs as below: CBC BMP PT/INR WBC (10*3/?L) Date Value 09/29/2024 11.71 (H) NA (mmol/L) Date Value 09/29/2024 139 No results found for: "PT" RBC (10*6/?L) Date Value 09/29/2024 4.04 (L) K (mmol/L) Date Value 09/29/2024 3.8 INR (no units) Date Value 09/29/2024 1.3 PLT (10*3/?L) Date Value 09/29/2024 149 (L) CALCIUM (mg/dL) Date Value 09/29/2024 7.9 (L) HGB (g/dL) Date Value 09/29/2024 13.4 CL (mmol/L) Date Value 09/29/2024 98 aPTT HCT (%) Date Value 09/29/2024 38.6 BUN (mg/dL) Date Value 09/29/2024 5 (L) APTT Patient (Seconds) Date Value 09/29/2024 40 (H) CREATININE (mg/dL) Date Value 09/29/2024 0.58 (L) IMAGING - reviewed, pertinent results as below: Hospital Encounter on 09/29/24 CT Abdomen pelvis w contrast Narrative EXAM: CT ABDOMEN PELVIS WITH CONTRAST HISTORY: 29-year-old male with PMH of alcohol induced cirrhosis presented with abdominal pain and jaundice. COMPARISON: CT abdomen and pelvis dating back to 08/07/2024. TECHNIQUE AND FINDINGS: Contiguous axial imaging of the abdomen and pelvis starting from from the level of the lung bases to the level of proximal thighs was performed after the administration of intravenous contrast. Coronal and sagittal reconstructions were obtained. Auto mA and/or iterative reconstruction were used to reduce radiation dose. FINDINGS: LOWER THORAX: The lungs bases are clear. No cardiomegaly. Large mucosal and submucosal esophageal variceal complex. LIVER: Enlarged liver (27.6 cm) with nodular hepatic contour. Diffusely heterogenous appearance of the hepatic parenchyma with ill-defined hypoattenuating masses/lesions. No filling defects within the main portal veins. GALLBLADDER AND BILIARY TREE: No biliary ductal dilation. No gallbladder wall thickening. Radiopaque cholelithiasis. SPLEEN: No splenomegaly. PANCREAS: No ductal dilation or masses. ADRENAL GLANDS: No adrenal nodules. KIDNEYS: No hydronephrosis, or masses. Nonobstructive bilateral nephrolithiasis measuring up to 0.7 cm. PERITONEUM AND RETROPERITONEUM: Interval development of small volume ascites. LYMPH NODES: No lymphadenopathy. GI TRACT: Diffuse wall thickening of the bowels, likely due to underlying portal hypertension. PELVIS/BLADDER: Unremarkable. VESSELS: Unremarkable. BONES AND SOFT TISSUES: No suspicious lytic or sclerotic bony lesions. Soft tissue stranding and focal calcification about the left gluteal region adjacent to the cleft. Impression Interval development of small volume ascites. Changes of cirrhosis and advanced portal hypertension in the form of large esophageal variceal complex and ascites. Heterogenous appearance of the hepatic parenchyma, unchanged. Underlying masses cannot be ruled out. Further evaluation with dedicated liver mass protocol (CT or MRI) and AFP are recommended. ASSESSMENT/PLAN: 1. Alcoholic liver cirrhosis with acute alcoholic hepatitis; continue with gentle hydration and monitor volume status closely. Patient's prognosis is poor especially in light of the fact that he continues to drink. He was counseled regarding alcohol cessation. Will continue monitoring ammonia level closely. Currently his ammonia level was at 30. MELD score is 24 with a 90-day mortality of 10%. Continue monitoring labs and will monitor for DTs. 2. 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 If blood pressure tolerates may add it as beta ashleigh therapy. 3. GI DVT prophylaxis DVT prophylaxis: enoxaparin Stress ulcer prophylaxis: pantoprazole Code status: FULL Advanced Care Planning (Z71.89) Above assessment and plan discussed at length with patient, patient expressed full understanding. Questions and concerned addressed. Surrogate decision maker: NO Level of care expected after discharge: HOME Time spent: 3 minutes discussing the advanced care plan Smoking Cessation: (Z71.6) Tobacco user?: NO Patient will require inpatient stay of 2 midnights or more given high risk of morbidity and mortality. [place] [employer] was verified during stay Nirmal Kelley MD IM-INTERNAL MEDICINE STAFF [facility] Procedure Notes Date/Time Note Provider Source 2024-10-10 13:07:45 VASCULAR AND INTERVENTIONAL RADIOLOGY PROCEDURE NOTE Pre-procedure diagnosis: Ascites Post-procedure diagnosis: Same Procedure: Ultrasound guided paracentesis. Findings: Pre-procedure imaging showed small volume ascites. Access site: RUQ Successful paracentesis with 400 cc serous fluid aspirated. Samples sent to lab for analysis. Complications: None immediate Condition: Unchanged. Estimated blood loss: Minimal, less than 2 cc. Full dictated note to follow in PACS. [facility] 2024-10-10 12:54:37 Procedure(s): IR PARACENTESIS/PERITONECENTESIS WITH IMAGING Patient recieved to Radiology for paracentesis . Indication for procedure is ascites Pt identified using name and . laboratory technologist monitoring is evangelina IR Faculty supervising is Dr. Fournier obtained consent as 1215 Invasive procedure checklist completed at 1250 Time out completed at 1255 Pre-procedure vitals are: BP 112/80 HR 97 O2 97 Post procedure vitals are: BP 129/89 HR 89 O2 98 Specimen: 400 mL right side Post procedure disposition remained in icu Stacy Goncalves [facility] Notes Date/Time Note Provider Source 2024-10-14 17:28:19 Problem: Falls, Risk of Goal: Absence of falls 10/14/20241727 by Patty Barraza, ANJEL Outcome: Resolved 10/14/20241727 by Patty Barraza RN Outcome: Adequate for discharge Problem: Pain Goal: Control of pain at or below patient's documented comfort goal 10/14/20241727 by Patty Barraza, RN Outcome: Resolved 10/14/20241727 by Patty Barraza, RN Outcome: Adequate for discharge Goal: Reduction in pain sensation 10/14/20241727 by Patty Barraza, RN Outcome: Resolved 10/14/20241727 by Patty Barraza, RN Outcome: Adequate for discharge Problem: Respiratory Function - Impaired Goal: Able to cough effectively 10/14/2024 172 by Patty Barraza, RN Outcome: Resolved 10/14/20241727 by Patty Barraza, RN Outcome: Adequate for discharge Goal: Adequate oxygenation 10/14/20241727 by Patty Barraza, RN Outcome: Resolved 10/14/20241727 by Patty Barraza RN Outcome: Adequate for discharge Goal: Adequate work of breathing 10/14/20241727 by Patty Barraza, RN Outcome: Resolved 10/14/20241727 by Patty Barraza, RN Outcome: Adequate for discharge Problem: Bleeding, Risk of Goal: Absence of impaired coagulation signs and symptoms 10/14/20241727 by Patty Barraza, RN Outcome: Resolved 10/14/20241727 by Patty Barraza, RN Outcome: Adequate for discharge Goal: Absence of active bleeding 10/14/20241727 by Patty Barraza, RN Outcome: Resolved 10/14/20241727 by Patty Barraza, RN Outcome: Adequate for discharge Problem: Skin integrity Impaired (Risk or Actual) Goal: Wound healing 10/14/20241727 by Patty Barraza, RN Outcome: Resolved 10/14/20241727 by Patty Barraza, RN Outcome: Adequate for discharge Goal: Prevention of new skin breakdown 10/14/20241727 by Patty Barraza, RN Outcome: Resolved 10/14/20241727 by Patty Barraza, RN Outcome: Adequate for discharge Problem: Discharge Planning Goal: Adequate for discharge 10/14/20241727 by Patty Barraza, RN Outcome: Resolved 10/14/2024 1728 by Patty Barraza RN Outcome: Adequate for discharge Patty Barraza RN [facility] 2024-10-14 05:28:47 Problem: Falls, Risk of Goal: Absence of falls Outcome: Progressing as expected Problem: Pain Goal: Control of pain at or below patient's documented comfort goal Outcome: Progressing as expected Goal: Reduction in pain sensation Outcome: Progressing as expected Problem: Respiratory Function - Impaired Goal: Able to cough effectively Outcome: Progressing as expected Goal: Adequate oxygenation Outcome: Progressing as expected Goal: Adequate work of breathing Outcome: Progressing as expected Problem: Skin integrity Impaired (Risk or Actual) Goal: Wound healing Outcome: Progressing as expected Goal: Prevention of new skin breakdown Outcome: Progressing as expected Britney De Paz RN [facility] 2024-10-13 13:45:05 Problem: Falls, Risk of Goal: Absence of falls Outcome: Progressing as expected Problem: Pain Goal: Control of pain at or below patient's documented comfort goal Outcome: Progressing as expected Goal: Reduction in pain sensation Outcome: Progressing as expected Problem: Respiratory Function - Impaired Goal: Able to cough effectively Outcome: Progressing as expected Goal: Adequate oxygenation Outcome: Progressing as expected Goal: Adequate work of breathing Outcome: Progressing as expected Problem: Bleeding, Risk of Goal: Absence of impaired coagulation signs and symptoms Outcome: Progressing as expected Goal: Absence of active bleeding Outcome: Progressing as expected Problem: Skin integrity Impaired (Risk or Actual) Goal: Wound healing Outcome: Progressing as expected Goal: Prevention of new skin breakdown Outcome: Progressing as expected Problem: Discharge Planning Goal: Adequate for discharge Outcome: Progressing as expected Eugenia Gomez RN [facility] 2024-10-13 00:09:29 Problem: Falls, Risk of Goal: Absence of falls Outcome: Progressing as expected Problem: Pain Goal: Control of pain at or below patient's documented comfort goal Outcome: Progressing as expected Goal: Reduction in pain sensation Outcome: Progressing as expected Problem: Respiratory Function - Impaired Goal: Able to cough effectively Outcome: Progressing as expected Goal: Adequate oxygenation Outcome: Progressing as expected Goal: Adequate work of breathing Outcome: Progressing as expected Problem: Bleeding, Risk of Goal: Absence of impaired coagulation signs and symptoms Outcome: Progressing as expected Goal: Absence of active bleeding Outcome: Progressing as expected Problem: Skin integrity Impaired (Risk or Actual) Goal: Wound healing Outcome: Progressing as expected Goal: Prevention of new skin breakdown Outcome: Progressing as expected Problem: Discharge Planning Goal: Adequate for discharge Outcome: Progressing as expected IA Gutierrez RN [facility] 2024-10-12 09:42:17 Problem: Falls, Risk of Goal: Absence of falls Outcome: Progressing as expected Problem: Pain Goal: Control of pain at or below patient's documented comfort goal Outcome: Progressing as expected Goal: Reduction in pain sensation Outcome: Progressing as expected Problem: Respiratory Function - Impaired Goal: Able to cough effectively Outcome: Progressing as expected Goal: Adequate oxygenation Outcome: Progressing as expected Goal: Adequate work of breathing Outcome: Progressing as expected Problem: Bleeding, Risk of Goal: Absence of impaired coagulation signs and symptoms Outcome: Progressing as expected Goal: Absence of active bleeding Outcome: Progressing as expected Problem: Skin integrity Impaired (Risk or Actual) Goal: Wound healing Outcome: Progressing as expected Goal: Prevention of new skin breakdown Outcome: Progressing as expected Problem: Discharge Planning Goal: Adequate for discharge Outcome: Progressing as expected IA Martinez RN [facility] 2024-10-12 02:16:39 Problem: Falls, Risk of Goal: Absence of falls Outcome: Progressing as expected Problem: Pain Goal: Control of pain at or below patient's documented comfort goal Outcome: Progressing as expected Goal: Reduction in pain sensation Outcome: Progressing as expected Problem: Respiratory Function - Impaired Goal: Able to cough effectively Outcome: Progressing as expected Goal: Adequate oxygenation Outcome: Progressing as expected Goal: Adequate work of breathing Outcome: Progressing as expected Problem: Bleeding, Risk of Goal: Absence of impaired coagulation signs and symptoms Outcome: Progressing as expected Goal: Absence of active bleeding Outcome: Progressing as expected Problem: Skin integrity Impaired (Risk or Actual) Goal: Wound healing Outcome: Progressing as expected Goal: Prevention of new skin breakdown Outcome: Progressing as expected Problem: Discharge Planning Goal: Adequate for discharge Outcome: Progressing as expected [facility] Harleen Lance RN [facility] 2024-10-11 09:28:27 Problem: Falls, Risk of Goal: Absence of falls Outcome: Progressing as expected Problem: Pain Goal: Control of pain at or below patient's documented comfort goal Outcome: Progressing as expected Goal: Reduction in pain sensation Outcome: Progressing as expected Problem: Respiratory Function - Impaired Goal: Able to cough effectively Outcome: Progressing as expected Goal: Adequate oxygenation Outcome: Progressing as expected Goal: Adequate work of breathing Outcome: Progressing as expected Problem: Bleeding, Risk of Goal: Absence of impaired coagulation signs and symptoms Outcome: Progressing as expected Goal: Absence of active bleeding Outcome: Progressing as expected Problem: Skin integrity Impaired (Risk or Actual) Goal: Wound healing Outcome: Progressing as expected Goal: Prevention of new skin breakdown Outcome: Progressing as expected [facility] [employer] 2024-10-11 05:06:38 Problem: Falls, Risk of Goal: Absence of falls Outcome: Progressing as expected Problem: Pain Goal: Control of pain at or below patient's documented comfort goal Outcome: Progressing as expected Goal: Reduction in pain sensation Outcome: Progressing as expected Problem: Respiratory Function - Impaired Goal: Able to cough effectively Outcome: Progressing as expected Goal: Adequate oxygenation Outcome: Progressing as expected Goal: Adequate work of breathing Outcome: Progressing as expected Problem: Bleeding, Risk of Goal: Absence of impaired coagulation signs and symptoms Outcome: Progressing as expected Goal: Absence of active bleeding Outcome: Progressing as expected [facility] [employer] 2024-10-10 13:35:27 Problem: Falls, Risk of Goal: Absence of falls Outcome: Progressing as expected Problem: Pain Goal: Control of pain at or below patient's documented comfort goal Outcome: Progressing as expected Goal: Reduction in pain sensation Outcome: Progressing as expected Problem: Respiratory Function - Impaired Goal: Able to cough effectively Outcome: Progressing as expected Goal: Adequate oxygenation Outcome: Progressing as expected Goal: Adequate work of breathing Outcome: Progressing as expected Problem: Bleeding, Risk of Goal: Absence of impaired coagulation signs and symptoms Outcome: Progressing as expected Goal: Absence of active bleeding Outcome: Progressing as expected Willi Hinojosa RN [facility] 2024-10-10 11:36:30 Images from the original note were not included. Pharmacy Recommendations for Patient Admission: No recommendations. The [employer] medication list has been updated and reflected in the chart below. Please use the [employer] [facility] Med List for ordering home doses during admission. Patient Adherence: Sporadically Non-Adherent to some medications. 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 predniSONE 20 mg tablet Take 2 tablets by mouth in the morning for 28 days. foLIC acid 1 mg tablet Take 1 tablet by mouth in the morning. (Patient not taking: Reported on 10/10/2024) pantoprazole 40 mg EC tablet Take 1 tablet by mouth in the morning and 1 tablet in the evening. Do all this for 30 days. (Patient not taking: Reported on 10/10/2024) polyethylene glycol 3350 17 gram powder Take 1 Packet by mouth in the morning. (Patient not taking: Reported on 10/10/2024) thiamine mononitrate 100 mg tablet Take 1 tablet by mouth in the morning. (Patient not taking: Reported on 10/10/2024) Outpatient Pharmacy Contact Information: [facility]/pharmacy #[id number] - [place], [place] - [address] [facility] [address] Thank you for the opportunity to participate in the care of this patient. Ana Penaloza RPH 11:35 AM, 10/10/2024 [facility] Department of Pharmacy - [facility] Phone: ADC: [phone] Ana Penaloza [facility] 2024-10-10 05:04:51 Patient admitted to [facility] for diagnosis of alcoholic cirrhosis of liver with ascites. Patient agrees to admission, discussed plan of care with patient and family. Patient is awake, A&Ox4, RR even and unlabored on RA. Color appropriate for race. PIV intact x1. IVF infusing. No adverse reaction to medications administered while in ED. Belongings with patient to unit. T [facility] 2024-10-10 04:52:44 Nurse Report Report given to Sahra HOBBS. Chief complaint, assessment findings, infusion verify and orders reviewed. Cr León RN [facility] 2024-10-10 01:27:27 CC: abd pain x 2 days. Jaundiced, heavy drinker, ascites noted. Pt states he does not have cirrhosis. T Cr León RN [facility] 2024-10-10 01:27:00 Associated Order(s): Paracentesis [facility] Emergency Department Note Patient Name: Jose Kang Date of : 1995 29 year old male Treatment Room: TX4 Primary Care Physician: PATIENT DOES NOT HAVE A PCP Patient Escorted by: Self [9] Mode of Arrival: EMS - [facility] ([place] [43] EMS Treatment Prior to ED Arrival: [employer] [facility] treatment: Saline lock Travel and Exposure Screening: Symptoms Does patient have any of these symptoms?: (not recorded) Exposure Screening Has patient had contact with someone with a communicable disease in the last month?: (not recorded) Diseases exposed to:: (not recorded) Is Patient ?: (not recorded) Exposure Date: (not recorded) Chief Complaint: Chief Complaint Patient presents with Abdominal Pain History of Present Illness: History of Present Illness This is a 29-year-old male with a history of alcohol use presenting with abdominal pain and swelling. The patient reports that the abdominal pain began 2 days ago and has progressively worsened. He notes increased swelling and difficulty breathing. He has also experienced irregular bowel movements and urination, with his last bowel movement occurring around 8:00 or 9:00 today. The patient has a history of alcohol consumption since the age of 16. He had abstained from drinking for approximately 2 weeks due to the pain but consumed about a pint of alcohol today, which did not alleviate his symptoms. He sought medical attention at an emergency room over a week ago and has abstained from alcohol since then. Despite this, his symptoms have persisted, leading him to resume drinking. His girlfriend advised him to seek medical attention, and he attempted to consult a surgical services director in [place] but was not seen. His current medications include prednisone and lactulose. SOCIAL HISTORY The patient has been drinking since he was 16 and consumed about a pint of alcohol today. HPI Past Medical History/Immunizations: No past medical history on file. Tetanus received in last 5 years: No Allergies: Allergies Allergen Reactions Avocado Anaphylaxis Pecan Nut Swelling Past Social History: Tobacco Use Every Day; 1 pack/day; Types: Cigarettes Passive Exposure: Current Smokeless Tobacco: Never used smokeless tobacco. Past Surgical History: No past surgical history on file. Review of Systems: Review of Systems Constitutional: Negative for fever. Respiratory: Positive for shortness of breath. Negative for chest tightness. Gastrointestinal: Positive for abdominal distention and abdominal pain. Negative for nausea and vomiting. Skin: Positive for color change. Physical Exam: Physical Exam Gastrointestinal: Abdomen is soft and squishy with some fluid present. ED Triage Vitals [10/10/24 0128] Weight 86.2 kg (190 lb) Actual or estimated Height 1.702 m (5' 7") BP (!) 152/105 Pulse 97 Resp 16 Temp 36.6 ?C (97.9 ?F) Temp src SpO2 97 % Measured on Physical Exam Constitutional: General: He is not in acute distress. Appearance: He is well-developed. HENT: Head: Normocephalic and atraumatic. Eyes: Pupils: Pupils are equal, round, and reactive to light. Cardiovascular: Rate and Rhythm: Normal rate. Pulmonary: Effort: Pulmonary effort is normal. Abdominal: General: There is distension. Tenderness: There is no abdominal tenderness. There is no guarding or rebound. Hernia: No hernia is present. Musculoskeletal: General: Normal range of motion. Cervical back: Normal range of motion. Skin: General: Skin is warm and dry. Coloration: Skin is jaundiced. Neurological: Mental Status: He is alert and oriented to person, place, and time. Radiology: No orders to display Lab Results: Lab Results - No data to display EKG: If EKG completed, see Procedure Note. Orders and Treatments: Orders Placed This Encounter Procedures CT Abdomen pelvis w contrast Cbc with Diff Comp. Metabolic Panel (80242) Lipase Urinalysis Prothrombin Time / INR Lactic Acid with 2 Hour Reflex Bili Unconjugated/Bili Conjug Orders Placed This Encounter Medications morpHINE (4 mg/mL) injection 4 mg ondansetron (ZOFRAN (PF)) injection 4 mg First Provider Eval: ED Events None ED COURSE Diagnosis/Impression as of 10/10/24 0133 Alcoholic cirrhosis of liver with ascites Results Procedures: Paracentesis Date/Time: 10/10/2024 5:05 AM Performed by: Jazmyne Perdomo DO Authorized by: Jazmyne Perdomo DO Consent: Consent obtained: Written Consent given by: Patient Risks discussed: Pain, infection and bowel perforation Alternatives discussed: No treatment Blair protocol: Patient identity confirmed: Verbally with patient Pre-procedure details: Procedure purpose: Therapeutic Preparation: Patient was prepped and draped in usual sterile fashion Anesthesia: Anesthesia method: Local infiltration Local anesthetic: Lidocaine 1% WITH epi Procedure details: Needle gauge: 18 Ultrasound guidance: yes Puncture site: L lower quadrant Fluid removed amount: 2.5L Fluid appearance: Yellow Post-procedure details: Procedure completion: Tolerated MDM: Assessment & Plan Initial Assessment: Increased abdominal pain and swelling over the past two days, difficulty breathing. History of alcoholism since age 16, recent alcohol consumption after two weeks of abstinence. No bowel movement since 8 or 9 AM today. Differential Diagnosis: - Liver failure: History of alcoholism, jaundice, abdominal swelling. Plan: Scan and labs to assess liver function. - Thrombus: Considered due to abdominal pain and swelling. Plan: Diagnostic imaging. - Cirrhosis: Unlikely due to patient's statement. Plan: Monitor liver function. ED Course: - Abdominal examination revealed jaundice and fluid accumulation. - 01:30 PM: Patient reported last bowel movement at 8 or 9 AM. - Diagnostic imaging ordered. - Laboratory tests ordered. - Plan to perform paracentesis to remove excess fluid. Final Assessment: Abdominal pain and swelling with difficulty breathing. History of alcoholism, recent alcohol consumption. Jaundice and fluid accumulation noted. Diagnostic imaging and labs ordered. Paracentesis planned. Clinical Impression: - Liver failure - Abdominal pain Disposition: - Admitted for further evaluation and management. Wood Casket As[employer]er referral Medical Decision Making Amount and/or Complexity of Data Reviewed Labs: ordered. Radiology: ordered. Risk Prescription drug management. Parenteral controlled substances. Decision regarding hospitalization. Flowsheet Documentation: Scoring Tools: No data recorded Disposition/Condition: ED Disposition None Discharge Medications: Patient's Medications START taking these medications No medications on file CONTINUE taking these medications which have NOT CHANGED FOLIC ACID 1 MG TABLET Take 1 tablet by mouth in the morning. LACTULOSE 10 GRAM/15 ML SOLUTION Take 30 mL by mouth in the morning and 30 mL in the evening. PANTOPRAZOLE 40 MG EC TABLET Take 1 tablet by mouth in the morning and 1 tablet in the evening. Do all this for 30 days. POLYETHYLENE GLYCOL 3350 17 GRAM POWDER Take 1 Packet by mouth in the morning. PREDNISONE 20 MG TABLET Take 2 tablets by mouth in the morning for 28 days. THIAMINE MONONITRATE 100 MG TABLET Take 1 tablet by mouth in the morning. START taking Modified Medications as Prescribed No medications on file STOP taking these medications No medications on file Follow-up: Electronically signed by: Jazmyne Perdomo DO 10/10/24 0545 [facility] 2024-10-04 07:45:57 Problem: Falls, Risk of Goal: Absence of falls 10/04/2024744 by Patty Barraza, RN Outcome: Resolved 10/04/2024744 by Patty Barraza, RN Outcome: Adequate for discharge 10/03/20241906 by Patty Barraza, RN Outcome: Progressing as expected Problem: Skin integrity Impaired (Risk or Actual) Goal: Prevention of new skin breakdown 10/04/2024744 by Patty Barraza, RN Outcome: Resolved 10/04/2024744 by Patty Barraza RN Outcome: Adequate for discharge 10/03/20241906 by Patty Barraza, RN Outcome: Progressing as expected Problem: Discharge Planning Goal: Adequate for discharge 10/04/2024744 by Patty Barraza, RN Outcome: Resolved 10/04/2024744 by Patty Barraza, RN Outcome: Adequate for discharge 10/03/20241906 by Patty Barraza, RN Outcome: Progressing as expected Problem: Discharge Planning Goal: Adequate for discharge 10/04/2024744 by Patty Barraza, RN Outcome: Resolved 10/04/2024744 by Patty Barraza, RN Outcome: Adequate for discharge 10/03/20241906 by Patty Barraza, RN Outcome: Progressing as expected Problem: Venous Thromboembolism, (actual or risk of) Goal: Absence of venous thromboembolism (Risk) 10/04/2024744 by Patty Barraza, RN Outcome: Resolved 10/04/2024744 by Patty Barraza RN Outcome: Adequate for discharge 10/03/20241906 by Patty Barraza, RN Outcome: Progressing as expected Problem: Skin integrity Impaired (Risk or Actual) Goal: Prevention of new skin breakdown 10/04/2024744 by Patty Barraza, RN Outcome: Resolved 10/04/2024744 by Patty Barraza, RN Outcome: Adequate for discharge 10/03/20241906 by Patty Barraza, RN Outcome: Progressing as expected Patty Barraza RN [facility] 2024-10-04 02:16:31 Problem: Falls, Risk of Goal: Absence of falls Outcome: Progressing as expected Problem: Skin integrity Impaired (Risk or Actual) Goal: Prevention of new skin breakdown Outcome: Progressing as expected Problem: Discharge Planning Goal: Adequate for discharge Outcome: Progressing as expected Problem: Discharge Planning Goal: Adequate for discharge Outcome: Progressing as expected Problem: Venous Thromboembolism, (actual or risk of) Goal: Absence of venous thromboembolism (Risk) Outcome: Progressing as expected Problem: Skin integrity Impaired (Risk or Actual) Goal: Prevention of new skin breakdown Outcome: Progressing as expected ELLT Madelin Connolly RN [facility] 2024-10-03 19:08:13 Problem: Falls, Risk of Goal: Absence of falls Outcome: Progressing as expected Problem: Skin integrity Impaired (Risk or Actual) Goal: Prevention of new skin breakdown Outcome: Progressing as expected Problem: Discharge Planning Goal: Adequate for discharge Outcome: Progressing as expected Problem: Discharge Planning Goal: Adequate for discharge Outcome: Progressing as expected Problem: Venous Thromboembolism, (actual or risk of) Goal: Absence of venous thromboembolism (Risk) Outcome: Progressing as expected Problem: Skin integrity Impaired (Risk or Actual) Goal: Prevention of new skin breakdown Outcome: Progressing as expected [facility] 2024-10-02 23:08:57 Problem: Falls, Risk of Goal: Absence of falls Outcome: Progressing as expected Problem: Skin integrity Impaired (Risk or Actual) Goal: Prevention of new skin breakdown Outcome: Progressing as expected Problem: Discharge Planning Goal: Adequate for discharge Outcome: Progressing as expected Problem: Discharge Planning Goal: Adequate for discharge Outcome: Progressing as expected Problem: Venous Thromboembolism, (actual or risk of) Goal: Absence of venous thromboembolism (Risk) Outcome: Progressing as expected Problem: Skin integrity Impaired (Risk or Actual) Goal: Prevention of new skin breakdown Outcome: Progressing as expected [facility] 2024-10-02 18:22:41 Progressing as expected T Elen Mcqueen RN [facility] 2024-10-01 23:12:17 Problem: Falls, Risk of Goal: Absence of falls Outcome: Progressing as expected Problem: Skin integrity Impaired (Risk or Actual) Goal: Prevention of new skin breakdown Outcome: Progressing as expected Problem: Discharge Planning Goal: Adequate for discharge Outcome: Progressing as expected Problem: Discharge Planning Goal: Adequate for discharge Outcome: Progressing as expected Problem: Venous Thromboembolism, (actual or risk of) Goal: Absence of venous thromboembolism (Risk) Outcome: Progressing as expected Problem: Skin integrity Impaired (Risk or Actual) Goal: Prevention of new skin breakdown Outcome: Progressing as expected [facility] 2024-10-01 16:48:13 Problem: Falls, Risk of Goal: Absence of falls Outcome: Progressing as expected Problem: Skin integrity Impaired (Risk or Actual) Goal: Prevention of new skin breakdown Outcome: Progressing as expected Problem: Discharge Planning Goal: Adequate for discharge Outcome: Progressing as expected Problem: Discharge Planning Goal: Adequate for discharge Outcome: Progressing as expected Problem: Venous Thromboembolism, (actual or risk of) Goal: Absence of venous thromboembolism (Risk) Outcome: Progressing as expected Problem: Skin integrity Impaired (Risk or Actual) Goal: Prevention of new skin breakdown Outcome: Progressing as expected [facility] 2024-09-30 23:54:46 Problem: Falls, Risk of Goal: Absence of falls Outcome: Progressing as expected Problem: Skin integrity Impaired (Risk or Actual) Goal: Prevention of new skin breakdown Outcome: Progressing as expected Problem: Discharge Planning Goal: Adequate for discharge Outcome: Progressing as expected Problem: Discharge Planning Goal: Adequate for discharge Outcome: Progressing as expected Problem: Venous Thromboembolism, (actual or risk of) Goal: Absence of venous thromboembolism (Risk) Outcome: Progressing as expected Problem: Skin integrity Impaired (Risk or Actual) Goal: Prevention of new skin breakdown Outcome: Progressing as expected Khang Starr RN [facility] 2024-09-30 16:46:32 Problem: Falls, Risk of Goal: Absence of falls 09/30/20241646 by Patty Barraza RN Outcome: Progressing as expected Problem: Skin integrity Impaired (Risk or Actual) Goal: Prevention of new skin breakdown 09/30/20241646 by Patty Barraza RN Outcome: Progressing as expected Problem: Discharge Planning Goal: Adequate for discharge Outcome: Progressing as expected Problem: Discharge Planning Goal: Adequate for discharge Outcome: Progressing as expected Problem: Venous Thromboembolism, (actual or risk of) Goal: Absence of venous thromboembolism (Risk) Outcome: Progressing as expected T [facility] 2024-09-30 01:15:56 Problem: Falls, Risk of Goal: Absence of falls Outcome: Progressing as expected Problem: Skin integrity Impaired (Risk or Actual) Goal: Prevention of new skin breakdown Outcome: Progressing as expected Sarah Faria RN [facility] 2024-09-29 17:46:54 Problem: Falls, Risk of Goal: Absence of falls Outcome: Progressing as expected Problem: Skin integrity Impaired (Risk or Actual) Goal: Prevention of new skin breakdown Outcome: Progressing as expected Autumn Wilson RN [facility] 2024-09-29 17:02:48 Patient admitted to [facility] med surg for diagnosis of alcoholic cirrhosis of liver with ascites . Patient agrees to admission, discussed plan of care with patient and family. Patient is awake, A&Ox4, RR even and unlabored on 2L NC. Color appropriate for race. PIV intact x1. No adverse reaction to medications administered while in ED. Belongings with patient to unit. Janis Thornton RN [facility] 2024-09-29 16:30:30 Nurse Report Report given to Autumn. Chief complaint, assessment findings, infusion verify and orders reviewed. Janis Thornton RN [facility] 2024-09-29 12:10:23 Patient states: "Abdominal pain, difficulty breathing. A lot of the same symptoms when I was hospitalized with a centesis. Its bad. I have alcoholism and it's been bad" Nadira Smith RN [facility] 2024-09-29 12:02:00 [facility] Emergency Department Note Patient Name: Jose Kang Date of : 1995 29 year old male Treatment Room: WI7 Primary Care Physician: PATIENT DOES NOT HAVE A PCP Patient Escorted by: Family [5] Mode of Arrival: Personal means [1] EMS Treatment Prior to ED Arrival: [employer]ER treatment: None Travel and Exposure Screening: Symptoms Does patient have any of these symptoms?: (not recorded) Exposure Screening Has patient had contact with someone with a communicable disease in the last month?: (not recorded) Diseases exposed to:: (not recorded) Is Patient ?: (not recorded) Exposure Date: (not recorded) Chief Complaint: Chief Complaint Patient presents with Abdominal Pain History of Present Illness: History of Present Illness This is a male with a history of alcohol-induced cirrhosis and high blood pressure presenting with abdominal distention and jaundice. The patient arrived by car, driven by another individual. The patient reports that his symptoms began a few weeks ago. He has noticed yellowing of his skin and eyes, pain and swelling of his general abdomen but more pronounced on the right side. The pain is constant. The patient reports vomiting, which occurs once or twice on good days and up to six times on bad days, typically after consuming water, soda, or cool drinks. He believes he may be vomiting blood as the vomit sometimes appears red or darker. Additionally, he reports having loose bowel movements every 1 to 3 days, with occasional diarrhea. He experiences pain during urination and decreased urination. He reports no fainting episodes. The patient smokes cigarettes. His last alcohol consumption was today, with an intake of about half a pint of vodka. He is attempting to reduce his alcohol intake gradually to avoid seizures. The patient has recently moved to the area and has been here for about 1.5 to 2 months. He has obtained Medicaid, which became active on 09/24/2024, but has not yet scheduled any medical appointments. His last paracentesis for ascites was performed in 10/2023 in [place]. SOCIAL HISTORY The patient smokes cigarettes. The patient admits to drinking alcohol, with the last drink being today, consuming about half a pint of vodka. 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 Tetanus received in last 5 years: No Allergies: Allergies Allergen Reactions Avocado Anaphylaxis Pecan Nut Swelling Past Social History: Substance & Sexual Activity No substance use or sexual activity history on file. Past Surgical History: No past surgical history on file. Review of Systems: Review of Systems Constitutional: Negative for chills, diaphoresis, fatigue and fever. Eyes: Yellowing Gastrointestinal: Positive for abdominal distention, abdominal pain, diarrhea and vomiting. Musculoskeletal: Positive for arthralgias. All other systems reviewed and are negative. Physical Exam: Physical Exam ED Triage Vitals [09/29/24 1211] Weight 86.2 kg (190 lb) Actual or estimated Estimated by patient/family report Height 1.702 m (5' 7") BP 135/89 Pulse 106 Resp 16 Temp 36.8 ?C (98.2 ?F) Temp source Oral SpO2 96 % Measured on Room air Physical Exam General: alert, oriented, no apparent distress, unkempt Head: normocephalic Eyes: pupils midline, sclera jaundiced BL Nose: no audible congestion Oropharynx: mucous membranes moist, airway patent Neck: neck supple, no meningismus Lungs: CTAB, non-labored, no wheezes, rhonchi or crackles Heart: regular rhythm, + tachycardia, no murmurs audible Abdomen: abdomen soft, + distended, + fluid wave, + enlarged liver, no guarding, negative McBurney's point TTP, negative Ambrosio's sign Back: painless ROM Extremities/Musculoskeletal: no cyanosis, no edema, no obvious deformities Neuro: normal without focal findings Skin:faint jaundice noted and no rashes or suspicious lesions are seen Radiology: CT Abdomen pelvis w contrast Final Result EXAM: CT ABDOMEN PELVIS WITH CONTRAST HISTORY: 29-year-old male with PMH of alcohol induced cirrhosis presented with abdominal pain and jaundice. COMPARISON: CT abdomen and pelvis dating back to 08/07/2024. TECHNIQUE AND FINDINGS: Contiguous axial imaging of the abdomen and pelvis starting from from the level of the lung bases to the level of proximal thighs was performed after the administration of intravenous contrast. Coronal and sagittal reconstructions were obtained. Auto mA and/or iterative reconstruction were used to reduce radiation dose. FINDINGS: LOWER THORAX: The lungs bases are clear. No cardiomegaly. Large mucosal and submucosal esophageal variceal complex. LIVER: Enlarged liver (27.6 cm) with nodular hepatic contour. Diffusely heterogenous appearance of the hepatic parenchyma with ill-defined hypoattenuating masses/lesions. No filling defects within the main portal veins. GALLBLADDER AND BILIARY TREE: No biliary ductal dilation. No gallbladder wall thickening. Radiopaque cholelithiasis. SPLEEN: No splenomegaly. PANCREAS: No ductal dilation or masses. ADRENAL GLANDS: No adrenal nodules. KIDNEYS: No hydronephrosis, or masses. Nonobstructive bilateral nephrolithiasis measuring up to 0.7 cm. PERITONEUM AND RETROPERITONEUM: Interval development of small volume ascites. LYMPH NODES: No lymphadenopathy. GI TRACT: Diffuse wall thickening of the bowels, likely due to underlying portal hypertension. PELVIS/BLADDER: Unremarkable. VESSELS: Unremarkable. BONES AND SOFT TISSUES: No suspicious lytic or sclerotic bony lesions. Soft tissue stranding and focal calcification about the left gluteal region adjacent to the jacob cleft. IMPRESSION Interval development of small volume ascites. Changes of cirrhosis and advanced portal hypertension in the form of large esophageal variceal complex and ascites. Heterogenous appearance of the hepatic parenchyma, unchanged. Underlying masses cannot be ruled out. Further evaluation with dedicated liver mass protocol (CT or MRI) and AFP are recommended. Lab Results: Lab Results CBC WITH DIFF - Abnormal Result Value Ref Range WBC 11.71 (*) 4.20 - 10.70 10*3/?L RBC 4.04 (*) 4.26 - 5.52 10*6/?L HGB 13.4 12.2 - 16.4 g/dL HCT 38.6 38.4 - 49.3 % MCV 95.5 81.7 - 95.6 fL MCH 33.2 (*) 26.1 - 32.7 pg MCHC 34.7 31.2 - 35.0 g/dL RDW-SD 64.9 (*) 38.5 - 51.6 fL RDW-CV 18.6 (*) 12.1 - 15.4 % PLT 149 (*) 150 - 328 10*3/?L MPV 10.9 9.8 - 13.0 fL NRBC/100 WBC 0.0 0.0 - 10.0 /100 WBCs NRBC x10 3 <0.01 10*3/?L GRAN MAT (NEUT) % 71.3 % IMM GRAN % 0.40 % LYMPH % 15.7 % MONO % 9.5 % EOS % 1.1 % BASO % 2.0 % GRAN MAT x10 3 (ANC) 8.35 (*) 1.99 - 6.95 10*3/uL IMM GRAN x10 3 0.05 0.00 - 0.06 10*3/uL LYMPH x10 3 1.84 1.09 - 3.23 10*3/uL MONO x10 3 1.11 (*) 0.36 - 1.02 10*3/uL EOS x10 3 0.13 0.06 - 0.53 10*3/uL BASO x10 3 0.23 (*) 0.01 - 0.09 10*3/uL ACTIVATED PARTIAL THRMPLAS RAKESH - Abnormal APTT Patient 40 (*) 26 - 36 Seconds PROTHROMBIN TIME / INR - Abnormal PROTIME PATIENT 14.9 (*) 10.1 - 12.6 Seconds INR 1.3 COMP. METABOLIC PANEL (09120) - Abnormal NA 139 135 - 145 mmol/L K 3.8 3.5 - 5.0 mmol/L CL 98 98 - 108 mmol/L CO2 TOTAL 28 23 - 31 mmol/L AGAP 13 2 - 16 BUN 5 (*) 7 - 23 mg/dL GLUCOSE 97 70 - 110 mg/dL CREATININE 0.58 (*) 0.60 - 1.25 mg/dL TOTAL BILI 14.7 (*) 0.1 - 1.1 mg/dL CALCIUM 7.9 (*) 8.6 - 10.6 mg/dL T PROTEIN 9.1 (*) 6.3 - 8.2 g/dL ALBUMIN 3.9 3.5 - 5.0 g/dL ALK PHOS 850 (*) 34 - 122 U/L ALTv 87 (*) 5 - 50 U/L AST(SGOT) 590 (*) 13 - 40 U/L eGFR 134.6 mL/min/1.73m2 LIPASE - Normal LIPASE 199 0 - 220 U/L AMMONIA, PLASMA - Normal AMMONIA 30 9 - 33 umol/L MAGNESIUM - Normal MAGNESIUM 1.7 1.7 - 2.4 mg/dL ETHANOL ALCOHOL 370 mg/dL EKG: If EKG completed, see Procedure Note. Orders and Treatments: Orders Placed This Encounter Procedures CT Abdomen pelvis w contrast CBC WITH DIFF ACTIVATED PARTIAL THRMPLAS RAKESH PROTHROMBIN TIME / INR COMP. METABOLIC PANEL (68025) LIPASE Ammonia, Plasma Magnesium Ethanol CBC with Differential Basic Metabolic Panel (NA, K, CL, CO2, GLUCOSE, BUN, CREATININE, CA) Hepatic Function Panel (69582) (ALB,T.PRO,BILI T,BU/BC,ALT,AST,ALK PHOS) Magnesium Orders Placed This Encounter Medications ondansetron (ZOFRAN (PF)) injection 4 mg iopamidol (ISOVUE 370-500 mL) injection 85 mL enoxaparin (LOVENOX) injection 40 mg traMADoL (ULTRAM) tablet 50 mg morpHINE (4 mg/mL) injection 4 mg ondansetron (ZOFRAN (PF)) injection 4 mg FOLLOWED BY Linked Order Group oxazepam (SERAX) capsule 15 mg oxazepam (SERAX) capsule 15 mg oxazepam (SERAX) capsule 15 mg oxazepam (SERAX) capsule 15 mg thiamine mononitrate (VITAMIN B-1 (MONONITRATE)) tablet 100 mg foLIC acid (FOLATE) tablet 1 mg DISCONTD: albumin (ALBUTEIN 5 %) 5 % injection 25 g albumin (ALBUMINAR) 25 % injection 25 g First Provider Eval: ED Events Date/Time Event User Comments 09/29/24 1211 Medical Screening Begins MARIANA CAMPO -- 09/29/24 1211 First Provider Evaluation MARIANA CAMPO -- ED COURSE Diagnosis/Impression as of 09/29/24 1512 Alcoholic cirrhosis of liver with ascites Results Procedures: Procedures MDM: Assessment & Plan Medical Decision Making Patient presented with above clinical history and PE. Mild tachycardia however no other overt signs of acute alcohol withdrawal. PE also noted abdominal distention with mild firmness and positive fluid wave. DDx: Ascites, progressive cirrhosis, obstruction. No overt peritonitis no concern for SBP. Workup noted several gross abnormalities of patient's LFTs. Most profoundly, T. bili 14.7 which has increased from 3.8 on 08/07/2024 and other elevations as noted. H&H stable, no GI bleeding noted here in the ER today. There was noted interval development s in changes of cirrhosis and advanced portal hypertension. Concern for possible need for paracentesis. Condition warrants admission. Problems Addressed: Alcoholic cirrhosis of liver with ascites: acute illness or injury Amount and/or Complexity of Data Reviewed Labs: ordered. Decision-making details documented in ED Course. Radiology: ordered. Decision-making details documented in ED Course. Risk Prescription drug management. Parenteral controlled substances. Decision regarding hospitalization. Flowsheet Documentation: Scoring Tools: No data recorded Disposition/Condition: ED Disposition ED Disposition Admit - Inpatient Condition -- Comment -- Discharge Medications: Patient's Medications START taking these medications No medications on file CONTINUE taking these medications which have NOT CHANGED CHLORDIAZEPOXIDE 10 MG CAPSULE Day 1 10 mg q6 Day 2 10 mg q8 Day 3 10 mg q8 Day 4 10 mg q8 Day 5 10 mg q12 ONDANSETRON 4 MG DISINTEGRATING TABLET Take 1 tablet by mouth every 4 hours as needed for Nausea and Vomiting (N/V). PANTOPRAZOLE 40 MG EC TABLET Take 1 tablet by mouth in the morning. SUCRALFATE 1 GRAM TABLET Take 1 tablet by mouth before meals and at bedtime. START taking Modified Medications as Prescribed No medications on file STOP taking these medications No medications on file Follow-up: Associated attestation - Luis Byrnes MD - 09/29/2024 5:51 PM CDT I was present and available for this patient encounter [facility] 2024-08-30 14:58:00 Pt discharged with diagnosis of alcoholism, epigastric pain, alcoholic cirrhosis, and alcohol withdrawal seizure without complication. Printed and verbal instructions reviewed with and given to pt. Prescriptions given x 4. Pt verbalized understanding of teaching, medications, and recommended follow-up. Denies questions or concerns at this time. Pt ambulatory at discharge. Appears in no apparent distress. No ataxia noted. Accompanied by fiance. [facility] 2024-08-30 13:26:41 Pt in resting quietly, in NAD, w/ VSS. Pt requested beverage after taking GI cocktail. Physician will be contacted. Jessica Gale RN [facility] 2024-08-30 10:08:47 Pt to ED via [facility]. Pt states that he is attempting to quit drinking alcohol, reports that he drinks 1/5th of vodka a day. Last drink was 2 oz of vodka at 0500. Reports one witnessed seizure at 0600, reports biting his tongue. CO abd pain/distention, headache, and tongue pain. Presents jaundiced. BGL en route was 107. EMS administered 2L NC for SOB and O2 of 91% on RA. [facility] 2024-08-30 10:05:00 Images from the original note were not included. 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 Pt states that he is attempting to quit drinking alcohol, reports that he drinks 1/5th of vodka a day. Last drink was 2 oz of vodka at 0500. Reports one witnessed seizure at 0600, reports biting his tongue. CO abd pain/distention, headache, and tongue pain. Presents jaundiced. BGL en route was 107. EMS administered 2L NC for SOB and O2 of 91% on RA. Original note by Dafne Trammell RN at 08/30/2024 10:20 HPI History provided by: Patient Seizures Seizure activity on arrival: no Initial focality: Diffuse Episode characteristics: abnormal movements and generalized shaking Return to baseline: yes Severity: Moderate Timing: Once Context: alcohol withdrawal ICE CREAM MIXER treatment: None History of seizures: no Past Medical History / Immunizations No past medical history on file. Tetanus received in last 5 years: Yes Childhood immunizations: Up-to-date Past Surgical History No past surgical history on file. Allergies Allergies Allergen Reactions Avocado Anaphylaxis Pecan Nut Swelling Social History Substance & Sexual Activity No substance use or sexual activity history on file. Review of Systems Review of Systems Constitutional: Negative. Negative for chills, fatigue, fever and unexpected weight change. HENT: Negative. Eyes: Negative. Negative for discharge and itching. Respiratory: Negative. Negative for cough, chest tightness, shortness of breath and wheezing. Cardiovascular: Negative. Negative for chest pain and palpitations. Gastrointestinal: Positive for abdominal pain. Negative for abdominal distention, nausea and vomiting. Genitourinary: Negative. Negative for dysuria, urgency, frequency and flank pain. Musculoskeletal: Negative. Skin: Negative. Negative for color change, pallor and wound. Neurological: Positive for seizures. Negative for dizziness, syncope, light-headedness and headaches. Psychiatric/Behavioral: Negative. Negative for agitation and behavioral problems. All other systems reviewed and are negative. Endocrine: Endocrine negative Physical Exam ED Triage Vitals [08/30/24 1007] Weight 74.8 kg (165 lb) Actual or estimated Estimated by patient/family report Height 1.702 m (5' 7") BP (!) 139/92 Pulse 95 Resp 18 Temp 36.9 ?C (98.4 ?F) Temp source Oral SpO2 96 % Measured on Room air Physical Exam Vitals reviewed. Constitutional: Appearance: He is well-developed. Comments: Jaundice HENT: Head: Normocephalic and atraumatic. Nose: Nose normal. Eyes: General: Scleral icterus present. Conjunctiva/sclera: Conjunctivae normal. Neck: Trachea: No tracheal deviation. Cardiovascular: Rate and Rhythm: Normal rate and regular rhythm. Heart sounds: Normal heart sounds. No murmur heard. No friction rub. Pulmonary: Effort: Pulmonary effort is normal. No respiratory distress. Breath sounds: Normal breath sounds. No stridor. No wheezing or rales. Abdominal: General: Bowel sounds are normal. There is no distension. Palpations: Abdomen is soft. Tenderness: There is abdominal tenderness in the epigastric area. There is no guarding or rebound. Musculoskeletal: General: Normal range of motion. Cervical back: Normal range of motion and neck supple. Skin: General: Skin is warm and dry. Neurological: Mental Status: He is alert and oriented to person, place, and time. Cranial Nerves: No cranial nerve deficit. Sensory: No sensory deficit. Psychiatric: Behavior: Behavior normal. Labs Lab Results CBC WITH DIFF - Abnormal Result Value Ref Range WBC 10.06 4.20 - 10.70 10*3/?L RBC 3.87 (*) 4.26 - 5.52 10*6/?L HGB 12.3 12.2 - 16.4 g/dL HCT 36.4 (*) 38.4 - 49.3 % MCV 94.1 81.7 - 95.6 fL MCH 31.8 26.1 - 32.7 pg MCHC 33.8 31.2 - 35.0 g/dL RDW-SD 61.0 (*) 38.5 - 51.6 fL RDW-CV 17.8 (*) 12.1 - 15.4 % PLT 104 (*) 150 - 328 10*3/?L MPV 11.9 9.8 - 13.0 fL NRBC/100 WBC 0.0 0.0 - 10.0 /100 WBCs NRBC x10 3 <0.01 10*3/?L GRAN MAT (NEUT) % 76.4 % IMM GRAN % 0.30 % LYMPH % 11.6 % MONO % 9.9 % EOS % 0.7 % BASO % 1.1 % GRAN MAT x10 3 (ANC) 7.68 (*) 1.99 - 6.95 10*3/uL IMM GRAN x10 3 0.03 0.00 - 0.06 10*3/uL LYMPH x10 3 1.17 1.09 - 3.23 10*3/uL MONO x10 3 1.00 0.36 - 1.02 10*3/uL EOS x10 3 0.07 0.06 - 0.53 10*3/uL BASO x10 3 0.11 (*) 0.01 - 0.09 10*3/uL COMP. METABOLIC PANEL (77502) - Abnormal NA 130 (*) 135 - 145 mmol/L K 3.5 3.5 - 5.0 mmol/L CL 92 (*) 98 - 108 mmol/L CO2 TOTAL 25 23 - 31 mmol/L AGAP 13 2 - 16 BUN 10 7 - 23 mg/dL GLUCOSE 94 70 - 110 mg/dL CREATININE 0.54 (*) 0.60 - 1.25 mg/dL TOTAL BILI 13.0 (*) 0.1 - 1.1 mg/dL CALCIUM 8.5 (*) 8.6 - 10.6 mg/dL T PROTEIN 8.3 (*) 6.3 - 8.2 g/dL ALBUMIN 4.1 3.5 - 5.0 g/dL ALK PHOS 665 (*) 34 - 122 U/L ALTv 93 (*) 5 - 50 U/L AST(SGOT) 408 (*) 13 - 40 U/L eGFR 137.5 mL/min/1.73m2 URINALYSIS - Abnormal APPEARANCE Clear Clear COLOR Mindy (*) Yellow PH 6.0 4.8 - 8.0 SP GRAVITY 1.018 1.003 - 1.030 GLU U QUAL Normal Normal BLOOD 2+ (*) Negative KETONES 20 mg/dL (*) Negative PROTEIN 100 mg/dL (*) Negative UROBILIN 4.0 mg/dL (*) Normal BILIRUBIN 4 mg/dL (*) Negative NITRITE Negative Negative LEUK NIA Negative Negative RBC/HPF 72 (*) 0 - 3 HPF WBC/HPF 5 0 - 5 HPF BACTERIA Few (*) Negative MUCOUS Slight (*) Negative LPF SQ EPITH <1 HPF HYAL CAST 1 <=2 LPF TRANS EPI 1 <=1 HPF Ictotest Positive LIPASE - Normal LIPASE 217 0 - 220 U/L URINE DRUG (IMMUNOASSAY) - COMPREHENSIVE DRUG SCREEN W/O REFLEX - Normal AMPHET Negative Negative MENDOZA U Negative Negative BENZO U Negative Negative Cocaine Metabolite Negative Negative METHADONE Negative Negative OPIATES Negative Negative PCP Negative Negative THC Negative Negative FENTANYL (IMMUNOASSAY) - Normal FENTANYL Negative Negative ETHANOL ALCOHOL <10 mg/dL Imaging CT Abdomen pelvis w contrast Final Result ORDERING PHYSICIAN: KALYN LIMA. HISTORY: Pancreatitis, acute, severe TECHNIQUE: CT abdomen and pelvis with intravenous contrast. CT was performed according to ALARA (As Low As Reasonably Achievable). COMPARISON: 08/07/2024 FINDINGS: Abdomen: Visualized Chest: Visualized portions of the lungs show no consolidation or effusions. Liver And Biliary Tree: The liver is diffusely heterogeneous, enlarged, and has a lobulated contour. Fatty infiltration is noted. A low-density 8.9 cm lesion within the caudate lobe may represent focal hepatic steatosis (image 31/2). The portal vein is patent. There is recanalization of the umbilical vein. Diffuse paraesophageal and gastric varices are present. A miniscule volume of ascites is stable. Spleen: Spleen is enlarged, measuring 14.3 cm. Kidneys: Bilateral nonobstructive calyceal calculi are present, measuring up to 4 mm (image 47/2). There is no hydronephrosis. Kidneys enhance symmetrically. Adrenals: No adrenal masses are identified. Pancreas: No pancreatic masses are identified. Lymph Nodes: No adenopathy is identified. Aorta: No aneurysms are seen. Small Bowel: No hiatal hernia is present. The terminal ileum is normal. PELVIS: Colon: The appendix is normal. Remainder of colon is normal. Bladder: The bladder wall is smooth. Reproductive Organs: The prostate is normal. Osseous Structures: No suspicious lesions are identified. IMPRESSION 1. No interval change. No acute intra-abdominal process. 2. Fatty cirrhotic liver with sequela of portal hypertension. Nonemergent abdominal MRI without and with contrast was previously recommended to assess for mass lesion. End of Report. Head wo contrast Final Result EXAM: CT HEAD WO CONTRAST HISTORY: 29 years-old Male; Provided indication: Head trauma, moderate-severe . TECHNIQUE: Axial CT of the head was performed and reconstructed at 5 mm intervals. Coronal and sagittal reformatted images were generated. COMPARISON: None FINDINGS: The ventricles and cerebral sulci are normal in caliber and configuration. No midline shift or pathological extra-axial fluid collection is present. The basal cisterns are unremarkable. No acute intracranial hemorrhage or significant mass effect is visualized. No parenchymal attenuation abnormality is seen. The gil-white matter differentiation is preserved. The mastoid air cells and paranasal air sinuses are clear. The calvarium and central skull base are unremarkable. IMPRESSION No acute intracranial abnormality. Orders and Treatments Orders Placed This Encounter Procedures CT Head wo contrast CT Abdomen pelvis w contrast CBC WITH DIFF COMP. METABOLIC PANEL (08992) LIPASE URINE DRUG (IMMUNOASSAY) - COMPREHENSIVE DRUG SCREEN W/O REFLEX URINALYSIS ETHANOL Fentanyl (Immunoassay) Orders Placed This Encounter Medications DISCONTD: LORazepam (ATIVAN) injection 1 mg DISCONTD: LORazepam (ATIVAN) tablet 1 mg LORazepam (ATIVAN) injection 1 mg iopamidol (ISOVUE 370-500 mL) injection 85 mL pantoprazole (PROTONIX) 40 mg in NaCl 0.9% (NS) 10 mL syringe maalox/diphenhydrAMINE:lidocai ne2 %viscous 1:1:1: suspension (COMPOUNDED) chlordiazePOXIDE 10 mg capsule pantoprazole 40 mg EC tablet ondansetron 4 mg disintegrating tablet sucralfate 1 gram tablet Procedures EKG Time 1005 Rate 90 Normal sinus [place] normal Intervals normal No acute ischemia MDM Patient was evaluated for an emergency medical condition related to Alcohol Problem and Seizures Diagnoses considered but not limited to: Alcohol withdrawal Alcohol withdrawal seizure Labs:were ordered, and resulted, any relevant abnormalities were considered. Abnormal Labs Reviewed CBC WITH DIFF - Abnormal; Notable for the following components: Result Value RBC 3.87 (*) HCT 36.4 (*) RDW-SD 61.0 (*) RDW-CV 17.8 (*) PLT 104 (*) GRAN MAT x10 3 (ANC) 7.68 (*) BASO x10 3 0.11 (*) All other components within normal limits COMP. METABOLIC PANEL (93714) - Abnormal; Notable for the following components: NA 130 (*) CL 92 (*) CREATININE 0.54 (*) TOTAL BILI 13.0 (*) CALCIUM 8.5 (*) T PROTEIN 8.3 (*) ALK PHOS 665 (*) ALTv 93 (*) AST(SGOT) 408 (*) All other components within normal limits URINALYSIS - Abnormal; Notable for the following components: COLOR Mindy (*) BLOOD 2+ (*) KETONES 20 mg/dL (*) PROTEIN 100 mg/dL (*) UROBILIN 4.0 mg/dL (*) BILIRUBIN 4 mg/dL (*) RBC/HPF 72 (*) BACTERIA Few (*) MUCOUS Slight (*) All other components within normal limits Imaging:This is a teaching institution and preliminary studies are read by physicians in training. A final read by a radiologist will be confirmatory of preliminary studies or may include addenda. A reasonable attempt will be made to contact the patient or family to communicate findings if necessary. Diagnosis/Impression as of 08/30/24 1748 Alcoholism Epigastric pain Alcoholic cirrhosis, unspecified whether ascites present Alcohol withdrawal seizure without complication Medical Decision Making Problems Addressed: Alcohol withdrawal seizure without complication: acute illness or injury Alcoholic cirrhosis, unspecified whether ascites present: chronic illness or injury Alcoholism: chronic illness or injury Epigastric pain: acute illness or injury Amount and/or Complexity of Data Reviewed Labs: ordered. Decision-making details documented in ED Course. Radiology: ordered and independent interpretation performed. Decision-making details documented in ED Course. ECG/medicine tests: ordered and independent interpretation performed. Decision-making details documented in ED Course. Risk Prescription drug management. Parenteral controlled substances. Pulse Oximetry: is not hypoxic. Interpreted. Reassessment:gradually improving Communication with library consultant: None. Limitations to patient care and compliance: none. Plan & Summary: The patient is a 29-year-old gentleman who presents with alcohol withdrawal seizures. On exam he is jaundiced. He was evaluated in the emergency department for a little 7 hours and did not have a seizure in the ED. He was given Ativan earlier in his ED course. He did also have epigastric pain. Lipase was negative. CT of the abdomen pelvis did not demonstrate any pancreatic changes. He does have findings consistent with cirrhosis. He likely has alcoholic gastritis. He was given a GI cocktail and Protonix. The patient did state that he was to cease drinking. The patient was discharged with a Librium taper and was instructed to not drink alcohol with this medication. He expressed understanding verbally. The patient was discharged in stable condition. He can return for any questions or concerns. Jose Kang is a 29 year old male presenting for complaint(s) listed within the note. Patient has been deemed stable for discharge. Follow up with providers listed below for further evaluation and management. Return precautions given if symptoms worsen as documented in the discharge instructions. History, physical exam findings, results of visit, diagnosis, medication regimens and plan of future care have been considered. Additional MDM may be found in the ED course. Vital signs were rechecked before final disposition and determined to be expected for patient's clinical condition. Disposition & Follow Up ED Disposition ED Disposition Discharge Condition Stable Comment -- Patient's Medications START taking these medications CHLORDIAZEPOXIDE 10 MG CAPSULE Day 1 10 mg q6 Day 2 10 mg q8 Day 3 10 mg q8 Day 4 10 mg q8 Day 5 10 mg q12 ONDANSETRON 4 MG DISINTEGRATING TABLET Take 1 tablet by mouth every 4 hours as needed for Nausea and Vomiting (N/V). PANTOPRAZOLE 40 MG EC TABLET Take 1 tablet by mouth in the morning. SUCRALFATE 1 GRAM TABLET Take 1 tablet by mouth before meals and at bedtime. CONTINUE taking these medications which have NOT CHANGED No medications on file START taking Modified Medications as Prescribed No medications on file STOP taking these medications No medications on file Kalyn Lima Jr., MD Clinical Auto Transport Driver [facility] Emergency Department Dragon Dictation Software is used frequently and may produce errors. Promptly contact for obvious discrepancies. Kalyn Lima MD 08/30/24 1740 [facility]
[2024-11-03] MEDS ORDERED: THIAMINE 200 MG/2 ML INJ ONE (22:27)
[2024-11-03] MEDS ORDERED: MULTIVITAMINS 10 ML VIAL (INJ) IV ONE (22:27)
[2024-11-03] MEDS ORDERED: NA CHLORIDE 0.9% 1,000 ML ONE (22:27)
[2024-11-03] MEDS ORDERED: FOLIC ACID 5 MG/ML VIAL ONE (22:28)
--- NOTE | 2024-11-03 22:29 | EDPHYS ---
Physician Documentation [facility] Name: Jose Toscano Age: 29 yrs Sex: Male : 1995 Arrival Date: 11/03/2024 Time: 21:29 Bed 17 Private MD: ED Physician Iban Peterson HPI: 11/03 22:30 This 29 yrs old Male presents to ER via Ambulatory with complaints of ETOH Abuse, ms3 Toothache, Jaundice. 22:30 29-year-old male with past medical history of alcohol abuse, bipolar disorder, PTSD, ms3 schizophrenia, ADHD, liver cirrhosis, asthma presents to the emergency department for alcoholism. Patient states he has been drinking since age 16. Patient drinks 1/5 of vodka per day. Patient notes he recently moved from [place] to [place]. Patient states he has known liver cirrhosis. Patient states he would like to be checked out as he is concerned.. Historical: - Allergies: 21:36 avacodo; jb4 21:36 Pecan; jb4 21:36 Wasps; jb4 - PMHx: 21:36 Alcohol abuse; bi-polar; PTSD; Schizophrenia; adhd; Cirrhosis of liver; jb4 - PSHx: 21:36 dental; paracentesis; jb4 - Immunization history:: Adult Immunizations unknown. - Infectious Disease History:: Denies. - Social history:: Smoking status: Patient reports the use of cigarette tobacco products, smokes one pack cigarettes per day. Patient uses alcohol, on a daily basis. ROS: 22:30 Constitutional: Negative for fever, and chills. Cardiovascular: Negative for chest ms3 pain, and palpitations. Respiratory: Negative for shortness of breath, cough, wheezing, and pleuritic chest pain, Abdomen/GI: Negative for abdominal pain, nausea, vomiting, diarrhea, and constipation, MS/Extremity: Negative for injury and deformity, Skin: Negative for injury, rash, and discoloration, 22:30 ENT: Positive for Teeth pain Exam: 22:30 Constitutional: This is a well developed, well nourished patient who is awake, alert, ms3 and in no acute distress. Respiratory: Lungs have equal breath sounds bilaterally, clear to auscultation and percussion. No rales, rhonchi or wheezes noted. No increased work of breathing, no retractions or nasal flaring. 22:30 Cardiovascular: Rate: tachycardic, Rhythm: regular, Pulses: no pulse deficits are appreciated, Heart sounds: normal, normal S1and S2, Edema: is not appreciated, 22:30 Abdomen/GI: Inspection: distension, that is mild, Bowel sounds: normal, in all quadrants, Palpation: abdomen is soft and non-tender, in all quadrants, 22:30 Skin: Appearance: Color: jaundiced, Vital Signs: 21:35 BP 153 / 102; Pulse 121; Resp 18; Temp 97.4(TE); Pulse Ox 95% on R/A; Weight 90.72 kg; jb4 Height 5 ft. 7 in. (R); Pain 10/10; 21:35 Body Mass Index 31.32 (90.72 kg, 170.18 cm) jb4 21:35 Pain Scale: Adult jb4 MDM: 22:12 Medical Screening Exam initiated ms3 22:30 Differential diagnosis: dental caries, dental abscess, gingivostomatitis, Alcohol ms3 cirrhosis vs Electrolyte abnormality. Data reviewed: vital signs, nurses notes, and as a result, I will discharge patient. Consideration of Admission/Observation Escalation of care including admission/observation considered. Patient wishes to be discharged prior to labs returning. I considered the following discharge prescriptions or medication management in the emergency department Medications ordered and patient requests to leave prior to receiving medicaions. 22:36 Counseling: I had a detailed discussion with the patient and/or guardian regarding the ms3 historical points, exam findings, and any diagnostic results supporting the discharge/admit diagnosis, the need for outpatient follow up, to return to the emergency department if symptoms worsen or persist or if there are any questions or concerns that arise at home. Refusal of service: The patient/guardian displays adequate decision making capability and despite a detailed discussion of alternatives, benefits, risks, and consequences refuses: Admission to the hospital for further work-up and treatment, all lab tests, Medications. ED course: Patient has decided to refuse labs and medications. At this time, I reevaluated the patient and discussed the following: a. Capacity: The patient has the capacity to communicate, understand information, and logically process the decision making process. b. Communication of risks: At bedside, I discussed potential risks, outcomes, and alternative approaches in a patientcentered manner. The patient was informed of the specific risks of missed diagnosis, disability, including worsening condition and . The patient understands that they are welcome to return at any time to complete the workup. Patient is discharged from my care with informed refusal.. 11/03 22:13 Order name: Accucheck ms3 11/03 22:13 Order name: Cardiac monitoring ms3 11/03 22:13 Order name: EKG - Nurse/Tech ms3 11/03 22:13 Order name: IV Saline Lock - Large Bore ms3 11/03 22:13 Order name: Labs collected and sent ms3 11/03 22:13 Order name: O2 Per Protocol ms3 11/03 22:13 Order name: O2 Sat Monitoring ms3 11/03 22:13 Order name: Vital Signs ms3 Administered Medications: No medications were administered Disposition Summary: 11/03/24 22:29 Discharge Ordered Notes: Location: Home ms3 Condition: Stable ms3 Diagnosis - Alcohol abuse ms3 - Post-traumatic stress disorder (PTSD) ms3 - Borderline personality disorder ms3 - Dental caries, unspecified ms3 Followup: ms3 - With: Gabe Breaux MD - When: 2 - 3 days - Reason: Recheck today's complaints Followup: ms3 - With: Wing Mcgee DO - When: 2 - 3 days - Reason: Recheck today's complaints Discharge Instructions: - Discharge Summary Sheet ms3 - Alcohol Abuse and Nutrition ms3 - Alcoholic Liver Disease, [id number] ms3 - Alcohol Abuse and Dependence Information, Adult ms3 Forms: - Medication Reconciliation Form ms3 - Antibiotic Education ms3 - Prescription Opioid Use ms3 - Patient Portal Instructions ms3 - Leadership Thank You Letter ms3 Prescriptions: - penicillin V potassium 500 mg Oral tablet - take 1 tablet ORAL route 4 times per day; 40 tablet; Refills: 0, Product ms3 Selection Permitted Signatures: Dispatcher [employer] Edvin Nava RN RN jb4 Iban Peterson DO DO ms3 Corrections: (The following items were deleted from the chart) 22:30 22:13 CBC+H.LAB.BRZ ordered. EDMS EDMS 22:30 22:13 LACTATE+C.LAB.BRZ ordered. EDMS EDMS 22:30 22:13 PROTIME (+INR)+COAG.LAB.BRZ ordered. EDMS EDMS 22:30 22:13 PTT, ACTIVATED+COAG.LAB.BRZ ordered. EDMS EDMS 22:13 PROBNP+C.LAB.BRZ ordered. EDMS EDMS 22:13 BLOOD CULTURE*+BA.LAB.BRZ ordered. EDMS EDMS 22:13 COMPREHENSIVE METABOLIC PANEL+C.LAB.BRZ ordered. EDMS EDMS 22:13 Troponin High Sensitivity+C.LAB.BRZ ordered. EDMS EDMS
--- NOTE | 2024-11-03 22:29 | ER ---
Nurse's Notes [facility] Name: Jose Toscano Age: 29 yrs Sex: Male : 1995 Arrival Date: 11/03/2024 Time: 21:29 Bed 17 Private MD: Diagnosis: Alcohol abuse;Post-traumatic stress disorder (PTSD);Borderline personality disorder;Dental caries, unspecified Presentation: 11/03 21:35 Chief complaint: Patient states: I have a toothache, I feel off. I have chest pain, SOB jb4 and Headaches. My last drink was 30 minutes ago. I went to [facility] twice and they couldn't help me. Coronavirus screen: At this time, the client does not indicate any symptoms associated with coronavirus-19. Ebola Screen: No symptoms or risks identified at this time. Initial Sepsis Screen: Does the patient meet any 2 criteria? HR > 90 bpm. Yes Does the patient have a suspected source of infection? No. Patient's initial sepsis screen is negative. Risk Assessment: Do you want to hurt yourself or someone else? Patient reports no desire to harm self or others. Onset of symptoms was November 03, 2024. Transition of care: patient was not received from another setting of care. 21:35 Method Of Arrival: Ambulatory jb4 21:35 Acuity: TIESHA 2 jb4 Historical: - Allergies: 21:36 avacodo; jb4 21:36 Pecan; jb4 21:36 Wasps; jb4 - PMHx: 21:36 Alcohol abuse; bi-polar; PTSD; Schizophrenia; adhd; Cirrhosis of liver; jb4 - PSHx: 21:36 dental; paracentesis; jb4 - Immunization history:: Adult Immunizations unknown. - Infectious Disease History:: Denies. - Social history:: Smoking status: Patient reports the use of cigarette tobacco products, smokes one pack cigarettes per day. Patient uses alcohol, on a daily basis. Screenin:11 [facility] ED Fall Risk Assessment (Adult) History of falling in the last 3 months, ss12 including since admission Yes- single mechanical fall (1 pt) Confusion or Disorientation No (0 pts) Intoxicated or Sedated Yes (3 pts) Impaired Gait No (0 pts) Mobility Assist Device Used No (0 pt) Altered Elimination No (0 pt) Score/Fall Risk Level 3 or more points = High Risk Oriented to surroundings, Maintained a safe environment, Educated pt \\T\\ family on fall prevention, incl call for assistance when getting out of bed, Assessed \\T\\ reinforced patient's understanding of fall precautions, Provided non-skid footwear. Abuse screen: Denies threats or abuse. Denies injuries from another. Nutritional screening: No deficits noted. Tuberculosis screening: No symptoms or risk factors identified. Assessment: 21:45 General: Appears in no apparent distress. comfortable, Behavior is calm, cooperative, ss12 quiet. Pain: Denies pain. Neuro: No deficits noted. Level of Consciousness is awake, alert, obeys commands, Oriented to person, place, time, situation. Cardiovascular: No deficits noted. Denies nausea, Patient's skin is warm and dry. Respiratory: No deficits noted. Airway is patent Respiratory effort is even, unlabored, Respiratory pattern is regular, symmetrical. GI: No deficits noted. Abdomen is round distended, jaundice. : No deficits noted. No signs and/or symptoms were reported regarding the genitourinary system. EENT: No deficits noted. No signs and/or symptoms were reported regarding the EENT system. Derm: No deficits noted. No signs and/or symptoms reported regarding the dermatologic system. Derm: Skin is intact, Skin is dry, Skin is jaundiced, yellow. Musculoskeletal: No deficits noted. No signs and/or symptoms reported regarding the musculoskeletal system. Psych: 22:04 [place] Suicide Severity Screening: In the past month, have you wished you were ss12 or wished you could go to sleep and not wake up? Patient responds "No.". Subjective: Patient's mood is Delusions are. 22:40 Pt denies substance abuse. ss12 22:41 [place] Suicide Severity Screening: "In the past month, have you actually had any ss12 thoughts of killing yourself?" Patient responds "no." "In your lifetime, have you ever done anything, started to do anything, or prepared to do anything to end your life?" Patient responds "yes." when he was 16 years old. Vital Signs: 21:35 BP 153 / 102; Pulse 121; Resp 18; Temp 97.4(TE); Pulse Ox 95% on R/A; Weight 90.72 kg; jb4 Height 5 ft. 7 in. (R); Pain 10/10; 21:35 Body Mass Index 31.32 (90.72 kg, 170.18 cm) jb4 21:35 Pain Scale: Adult jb4 ED Course: 21:32 Patient arrived in ED. jj6 21:36 Triage completed. jb4 21:36 Arm band placed on right wrist. jb4 21:38 Iban Peterson DO is Attending Physician. ms3 21:52 Ja Peres, RN is Primary Nurse. ss12 22:29 Gabe Breaux MD is Referral Physician. ms3 22:29 Wing Mcgee DO is Referral Physician. ms3 22:40 No provider procedures requiring assistance completed. ss12 22:41 Patient has correct armband on for positive identification. Provided Education on: plan ss12 of care. 22:42 IV discontinued, intact, bleeding controlled, No redness/swelling at site. Pressure ss12 dressing applied. Administered Medications: No medications were administered Medication: 22:40 VIS not applicable for this client. ss12 Outcome: 22:29 Discharge ordered by . ms3 22:42 Discharged to home ambulatory, ss12 22:42 Condition: stable 22:42 Discharge instructions given to patient, family, Instructed on discharge instructions, follow up and referral plans. Demonstrated understanding of instructions, follow-up care, 22:42 Patient left the ED. ss12 Signatures: Edvin Pineda, ANJEL RN jb4 Iban Peterson DO DO ms3 Tara Karolina jj6 Ja Peres RN RN ss12
[2024-11-03 22:50] VITALS: BP 153/102; TEMP 97.4; O2SAT 95
== END 2024-11-03 22:42 | disposition home or self-care (01) ==
LOC: ER 21:29
DX: F10.10 Alcohol abuse, uncomplicated (principal); K02.9 Dental caries, unspecified; F43.10 Post-traumatic stress disorder, unspecified; F60.3 Borderline personality disorder
CPT/HCPCS: 99283; J3411; J7030

== ENCOUNTER 2024-12-11 22:02 | Emergency (ER) | payer OTHER ==
[2024-12-11 22:40] LABS: Absolute Lymphocytes (CBC) 2.6 K/uL (0.7-4.9); Hematocrit 29.5 % (39.6-49.0); Hemoglobin 10.1 g/dL (13.6-17.9); MCH 32.5 pg (27.0-35.0); MCHC 34.3 g/dL (32.0-36.0); MCV 94.7 fL (80-100); MPV 8.9 fL (7.6-11.3); Nucleated RBC Absolute Count 0.0 (0-0); Nucleated Red Blood Cells % 0.0 % (0-0); RBC Red Blood Cell Count 3.11 M/uL (4.33-5.43); White Blood Count 12.80 thou/uL (4.3-10.9)
--- NOTE | 2024-12-11 22:43 | EDPHYS ---
Physician Documentation [facility] Name: Jose Toscano Age: 29 yrs Sex: Male : 1995 Arrival Date: 12/11/2024 Time: 22:02 Bed [id number] Private MD: ED Physician Todd Lazaro HPI: 12/11 22:33 This 29 yrs old Male presents to ER via EMS with complaints of Shortness Of bia Breath, Abdominal Pain. 22:34 This 29 yrs old Male presents to ER via EMS with complaints of Shortness Of bia Breath, Abdominal Pain. 22:33 The patient has shortness of breath at rest, with light activity. The patient's bia shortness of breath has no apparent modifying factors. Associated signs and symptoms: The patient has no apparent associated signs or symptoms. Severity of symptoms: At their worst the symptoms were mild moderate in the emergency department the symptoms are unchanged. The patient has not experienced similar symptoms in the past. 22:34 The patient has shortness of breath and the patient has a history of liver disease. bia Onset: The symptoms/episode began/occurred 5 day(s) ago. Historical: - Allergies: 22:23 avacodo; tb4 22:23 pecan; tb4 22:23 Wasps; tb4 - Home Meds: 22:23 furosemide 40 mg oral tablet 1 tab daily [Active]; Ferrous Sulfate Oral [Active]; tb4 propranolol 10 mg Oral tablet 1 tabs 2 times per day [Active]; amoxicillin-pot clavulanate 875-125 mg Oral tablet 1 tab 2 times per day [Active]; clindamycin HCl 300 mg Oral capsule 1 cap daily [Active]; spironolactone 100 mg Oral tablet 1 tab daily [Active]; carvedilol 3.125 mg oral tablet 1 tab 2 times per day [Active]; prednisone 20 mg Oral tablet 1 tabs daily [Active]; - PMHx: 22:23 cirrhosis of liver; alcohol abuse; Bi-polar; PTSD; Schizophrenia; adhd; tb4 - PSHx: 22:23 dental; paracentesis; tb4 - Immunization history:: Adult Immunizations up to date. - Infectious Disease History:: Denies. - Family history:: not pertinent. - Social history:: Smoking status: Patient reports the use of cigarette tobacco products, smokes one pack cigarettes per day. Patient uses alcohol, on a daily basis. patient/guardian reports chronic longstanding heavy alcohol consumption. ROS: 22:36 Constitutional: Negative for fever, chills, and weight loss, Eyes: Negative for injury, bia pain, redness, and discharge, ENT: Negative for injury, pain, and discharge, Neck: Negative for injury, pain, and swelling, Cardiovascular: Negative for chest pain, palpitations, and edema, Respiratory: Negative for shortness of breath, cough, wheezing, and pleuritic chest pain, Back: Negative for injury and pain, : Negative for injury, bleeding, discharge, and swelling, MS/Extremity: Negative for injury and deformity, Neuro: Negative for headache, weakness, numbness, tingling, and seizure, Psych: Negative for depression, anxiety, suicide ideation, homicidal ideation, and hallucinations, Allergy/Immunology: Negative for hives, rash, and allergies, Endocrine: Negative for neck swelling, polydipsia, polyuria, polyphagia, and marked weight changes, Hematologic/Lymphatic: Negative for swollen nodes, abnormal bleeding, and unusual bruising, 22:36 Abdomen/GI: Positive for abdominal pain, abdominal distension, 22:36 Skin: Positive for jaundice, Exam: 22:36 Constitutional: This is a well developed, well nourished patient who is awake, alert, bia and in no acute distress. Head/Face: Normocephalic, atraumatic. Eyes: Pupils equal round and reactive to light, extra-ocular motions intact. Lids and lashes normal. Conjunctiva and sclera are non-icteric and not injected. Cornea within normal limits. Periorbital areas with no swelling, redness, or edema. ENT: Nares patent. No nasal discharge, no septal abnormalities noted. Tympanic membranes are normal and external auditory canals are clear. Oropharynx with no redness, swelling, or masses, exudates, or evidence of obstruction, uvula midline. Mucous membranes moist. Neck: Trachea midline, no thyromegaly or masses palpated, and no cervical lymphadenopathy. Supple, full range of motion without nuchal rigidity, or vertebral point tenderness. No Meningismus. Chest/axilla: Normal chest wall appearance and motion. Nontender with no deformity. No lesions are appreciated. Cardiovascular: Regular rate and rhythm with a normal S1 and S2. No gallops, murmurs, or rubs. Normal PMI, no JVD. No pulse deficits. Respiratory: Lungs have equal breath sounds bilaterally, clear to auscultation and percussion. No rales, rhonchi or wheezes noted. No increased work of breathing, no retractions or nasal flaring. Back: No spinal tenderness. No costovertebral tenderness. Full range of motion. Male : Normal genitalia with no discharge or lesions. Skin: Warm, dry with normal turgor. Normal color with no rashes, no lesions, and no evidence of cellulitis. MS/ Extremity: Pulses equal, no cyanosis. Neurovascular intact. Full, normal range of motion., bilateral aka Neuro: Awake and alert, GCS 15, oriented to person, place, time, and situation. Cranial nerves II-XII grossly intact. Motor strength 5/5 in all extremities. Sensory grossly intact. Cerebellar exam normal. Normal gait. Psych: Awake, alert, with orientation to person, place and time. Behavior, mood, and affect are within normal limits. 22:36 ECG was reviewed by the Attending Physician. 22:36 Abdomen/GI: Inspection: distension, that is moderate, that is severe, Bowel sounds: normal, Palpation: mild abdominal tenderness, in all quadrants, Liver: no appreciated palpable abnormalities, Vital Signs: 22:15 BP 148 / 91 Supine; Pulse 97; Resp 17; Temp 97.9(O); Pulse Ox 97% ; Weight 77.11 kg; tb4 Height 5 ft. 7 in. ; Pain 10/10; 22:20 BP 132 / 92; Pulse 99; Pulse Ox 100% on R/A; tb4 23:25 BP 144 / 98; Pulse 77; Resp 19; Pulse Ox 97% on R/A; Pain 8/10; tb4 12/12 00:30 BP 125 / 86; Pulse 77; Resp 17; Pulse Ox 100% on R/A; Pain 6/10; tb4 01:30 BP 132 / 85; Pulse 73; Resp 16; Pulse Ox 98% on R/A; Pain 6/10; tb4 02:38 BP 139 / 86; Pulse 72; Resp 18; Pulse Ox 99% on R/A; Pain 5/10; tb4 12/11 22:15 Body Mass Index 26.63 (77.11 kg, 170.18 cm) tb4 12/11 22:15 Pain Scale: Adult tb4 23:25 Pain Scale: Adult tb4 12/12 00:30 Pain Scale: Adult tb4 01:30 Pain Scale: Adult tb4 02:38 Pain Scale: Adult tb4 MDM: 12/11 22:08 Medical Screening Exam initiated bia 22:38 Differential diagnosis: Anemia Anxiety Reaction CHF exacerbation, pneumonia, pulmonary bia edema, reactive airway disease, Sepsis Unstable Angina. Antibiotic administration: rocephin / sbp. Immunization status:. Data reviewed: vital signs, nurses notes, EMS record, lab test result(s), EKG, radiologic studies, CT scan, plain films. Consideration of Admission/Observation Patient was admitted/placed on observation. Escalation of care including admission/observation considered. I considered the following discharge prescriptions or medication management in the emergency department Medications were administered in the Emergency Department. See MAR. Independent interpretation of the following test(s) in the Emergency Department EKG: See my EKG interpretation above. Test considered but Not performed: Ultrasound no abd usg. Historians other than the Patient: EMS: ems well informed. Care significantly affected by the following chronic conditions: Liver Disease. Counseling: I had a detailed discussion with the patient and/or guardian regarding the historical points, exam findings, and any diagnostic results supporting the discharge/admit diagnosis, radiology results, the need to transfer to another facility, for higher level of care, [facility] does not immediately have the required specialist. 12/11 22:22 Order name: Basic Metabolic Panel; Complete Time: 23:15 [facility] 12/11 22:22 Order name: CBC with Diff; Complete Time: 23:15 [facility] 12/11 22:22 Order name: LFT's; Complete Time: 23:15 [facility] 12/11 22:22 Order name: Magnesium; Complete Time: 23:15 [facility] 12/11 22:22 Order name: NT PRO-BNP; Complete Time: 23:15 [facility] 12/11 22:22 Order name: PT-INR; Complete Time: 23:15 [facility] 12/11 22:22 Order name: Troponin HS; Complete Time: 23:15 [facility] 12/11 22:22 Order name: Lipase; Complete Time: 23:15 [facility] 12/11 22:22 Order name: AMMONIA; Complete Time: 00:05 [facility] 12/11 22:33 Order name: Blood Culture Adult (2) [facility] 12/11 22:33 Order name: Lactate w/ 2H reflex if indic.; Complete Time: 00:05 [facility] 12/11 22:36 Order name: Alcohol Level; Complete Time: 00:05 [facility] 12/11 22:36 Order name: UA Rfx Dom Cult if indicated; Complete Time: 00:05 [facility] 12/11 23:42 Order name: Dong Lactate-NO COLLECT Timer [facility] 12/12 02:51 Order name: Lactate Sepsis 2 HR Follow-up [facility] 12/11 22:22 Order name: XRAY Chest (1 view) [facility] 12/11 22:22 Order name: CT Abd/Pelvis - Without Contrast [facility] 12/11 22:22 Order name: EKG; Complete Time: 22:22 [facility] 12/11 22:22 Order name: Cardiac monitoring; Complete Time: 22:33 [facility] 12/11 22:22 Order name: EKG - Nurse/Tech; Complete Time: 22:33 [facility] 12/11 22:22 Order name: IV Saline Lock; Complete Time: 22:24 [facility] 12/11 22:22 Order name: Labs collected and sent; Complete Time: 22:52 [facility] 12/11 22:22 Order name: O2 Per Protocol; Complete Time: 22:24 [facility] 12/11 22:22 Order name: O2 Sat Monitoring; Complete Time: 22:24 [facility] 12/12 00:57 Order name: Turcios; Complete Time: 01:25 [facility] EC:36 Rate is 93 beats/min. Rhythm is regular. QRS Jelm is Normal. [place] interval is normal. QRS bia interval is normal. QT interval is normal. No Q waves. T waves are Normal. No ST changes noted. Clinical impression: NSR w/ Non-specific ST/T Changes and No evidence of ischemia. Interpreted by me. Reviewed by me. Administered Medications: 23:17 Drug: NS 0.9% IV 500 ml 500 ml IV at 1 bolus once; to be given as a bolus over 30 tb4 minutes Volume: 500 ml; Route: IV; Rate: 1 bolus; Site: right antecubital; 23:52 Follow up: Response: No adverse reaction; IV Status: Completed infusion tb4 23:17 Drug: Pantoprazole IVP 40 mg IVP once Route: IVP; Site: right antecubital; tb4 23:52 Follow up: Response: No adverse reaction tb4 23:17 Drug: Rocephin IV 1 grams IV at per protocol once; Given slow IV push per pharmacy tb4 instructions Route: IV; Rate: per protocol; Site: right antecubital; 23:51 Follow up: Response: No adverse reaction; IV Status: Completed infusion tb4 23:21 Drug: fentaNYL (PF) IVP 50 mcg IVP once Route: IVP; Site: right antecubital; tb4 23:53 Follow up: Response: No adverse reaction; Pain is decreased; RASS: Alert and Calm (0) tb4 23:21 Drug: Ondansetron IVP 4 mg IVP once; over 2 minutes Route: IVP; Site: right antecubital;tb4 23:54 Follow up: Response: No adverse reaction tb4 23:22 Drug: Thiamine IV 100 mg IV at bolus once Route: IV; Rate: bolus; Site: right tb4 antecubital; 23:52 Follow up: Response: No adverse reaction; IV Status: Completed infusion tb4 23:40 Drug: Banana Bag - (Multivitamin IV 1 amp, NS 0.9% IV 1000 ml, Thiamine IV 100 mg, tb4 foLIC Acid IVPB 1 mg) IV at 100 ml/hr once Route: IV; Rate: 100 ml/hr; Site: right antecubital; 12/12 03:13 Follow up: Response: No adverse reaction; IV Status: Completed infusion tb4 00:04 Drug: Phytonadione Sub-Q 10 mg Sub-Q once Route: Sub-Q; Site: abdomen; tb4 01:25 Follow up: Response: No adverse reaction tb4 01:25 Drug: HYDROmorphone IVP 0.5 mg IVP once Route: IVP; Site: right antecubital; tb4 03:08 Follow up: Response: No adverse reaction; Pain is decreased; RASS: Alert and Calm (0) tb4 01:25 Drug: Viscous Lidocaine Mucous Membrane Liquid (4 %) 5 ml Mucous Membrane once Route: tb4 Mucous Membrane; 03:08 Follow up: Response: No adverse reaction tb4 Disposition Summary: 12/11/24 22:42 Transfer Ordered Notes: Transfer Location: [facility] bia Reason: Higher level of care bia Condition: Fair bia Problem: an ongoing problem bia Symptoms: have worsened bia Accepting Physician: to [facility](12/12/24 03:14) tb4 Diagnosis - Alcoholic cirrhosis of liver with ascites bia - Unspecified jaundice bia - Alcohol abuse bia - Other retention of urine - pvr 250 bia Forms: - Medication Reconciliation Form bia - SBAR form bia Signatures: Dispatcher [employer] EDMS Todd Lazaro MD MD cha Johnson, Juwairiyah RN RN jj7 Deana Gustafson RN RN tb4 Corrections: (The following items were deleted from the chart) 12/11 22:23 22:22 BASIC METABOLIC PANEL+C.LAB.BRZ ordered. EDMS EDMS 22:23 22:22 CBC+H.LAB.BRZ ordered. EDMS EDMS 22:23 22:22 HEPATIC FUNCTION+C.LAB.BRZ ordered. EDMS EDMS 22:23 22:22 MAGNESIUM+C.LAB.BRZ ordered. EDMS EDMS 22:23 22:22 PROBNP+C.LAB.BRZ ordered. EDMS EDMS 22:23 22:22 PROTIME (+INR)+COAG.LAB.BRZ ordered. EDMS EDMS 22:23 22:22 Troponin High Sensitivity+C.LAB.BRZ ordered. EDMS EDMS 22:23 22:22 LIPASE+C.LAB.BRZ ordered. EDMS EDMS 22:23 22:22 AMMONIA+C.LAB.BRZ ordered. EDMS EDMS 12/12 02:57 12/11 22:42 to [facility] 12/12 03:14 02:57 to [facility] tb4
--- NOTE | 2024-12-11 22:43 | ER ---
Nurse's Notes [facility] Name: Jose Toscano Age: 29 yrs Sex: Male : 1995 Arrival Date: 12/11/2024 Time: 22:02 Bed [id number] Private MD: Diagnosis: Alcoholic cirrhosis of liver with ascites;Unspecified jaundice;Alcohol abuse;Other retention of urine-pvr 250 Presentation: 12/11 22:20 Chief complaint: EMS states: Patient c/o of shortness of breath and abdominal pain and tb4 distention. Coronavirus screen: At this time, the client does not indicate any symptoms associated with coronavirus-19. Ebola Screen: No symptoms or risks identified at this time. Onset of symptoms is unknown. 22:20 Method Of Arrival: EMS: [facility] tb4 22:20 Acuity: TIESHA 3 tb4 12/12 02:40 Initial Sepsis Screen: Does the patient meet any 2 criteria? No. Patient's initial tb4 sepsis screen is negative. Does the patient have a suspected source of infection? No. Patient's initial sepsis screen is negative. Risk Assessment: Do you want to hurt yourself or someone else? Patient reports no desire to harm self or others. Triage Assessment: 12/11 22:23 General: Appears distressed, uncomfortable, Behavior is cooperative, restless. Pain: tb4 Complains of pain in right upper quadrant and abdomen diffusely Pain does not radiate. Pain currently is 10 out of 10 on a pain scale. Quality of pain is described as pressure, sharp, Pain began gradually, Is continuous. EENT: No signs and/or symptoms were reported regarding the EENT system. Neuro: Level of Consciousness is awake, alert, obeys commands, Oriented to person, place, time, situation, Moves all extremities. Full function Weakness generalized. Gait is steady, Speech is normal, Facial symmetry appears normal. Respiratory: Reports shortness of breath at rest Airway is patent Respiratory effort is even, unlabored, Respiratory pattern is regular, symmetrical, Breath sounds are clear bilaterally. Onset: The symptoms/episode began/occurred gradually, the patient has mild shortness of breath. GI: Abdomen is distended, noted to have ascites, discolored, Bowel sounds present X 4 quads. Abdomen has rebound tenderness X 4 quads. : No signs and/or symptoms were reported regarding the genitourinary system. Derm: No signs and/or symptoms reported regarding the dermatologic system. Musculoskeletal: No signs and/or symptoms reported regarding the musculoskeletal system. Circulation, motion, and sensation intact. Range of motion: intact in all extremities. Historical: - Allergies: 22:23 avacodo; tb4 22:23 pecan; tb4 22:23 Wasps; tb4 - Home Meds: 22:23 furosemide 40 mg oral tablet 1 tab daily [Active]; Ferrous Sulfate Oral [Active]; tb4 propranolol 10 mg Oral tablet 1 tabs 2 times per day [Active]; amoxicillin-pot clavulanate 875-125 mg Oral tablet 1 tab 2 times per day [Active]; clindamycin HCl 300 mg Oral capsule 1 cap daily [Active]; spironolactone 100 mg Oral tablet 1 tab daily [Active]; carvedilol 3.125 mg oral tablet 1 tab 2 times per day [Active]; prednisone 20 mg Oral tablet 1 tabs daily [Active]; - PMHx: 22:23 cirrhosis of liver; alcohol abuse; Bi-polar; PTSD; Schizophrenia; adhd; tb4 - PSHx: 22:23 dental; paracentesis; tb4 - Immunization history:: Adult Immunizations up to date. - Infectious Disease History:: Denies. - Family history:: not pertinent. - Social history:: Smoking status: Patient reports the use of cigarette tobacco products, smokes one pack cigarettes per day. Patient uses alcohol, on a daily basis. patient/guardian reports chronic longstanding heavy alcohol consumption. Screenin:40 [facility] ED Fall Risk Assessment (Adult) History of falling in the last 3 months, tb4 including since admission No falls in past 3 months (0 pts) Confusion or Disorientation No (0 pts) Intoxicated or Sedated No (0 pts) Impaired Gait No (0 pts) Mobility Assist Device Used No (0 pt) Altered Elimination No (0 pt) Score/Fall Risk Level 0 - 2 = Low Risk Maintained a safe environment. Abuse screen: Denies threats or abuse. Nutritional screening: No deficits noted. Tuberculosis screening: No symptoms or risk factors identified. Assessment: 23:42 General: Appears distressed, uncomfortable, Behavior is calm, cooperative. Pain: tb4 Complains of pain in abdomen Pain does not radiate. Pain currently is 8 out of 10 on a pain scale. Quality of pain is described as pressure, sharp, Pain began gradually, Is continuous. Neuro: Level of Consciousness is awake, alert, obeys commands, Oriented to person, place, time, situation, Appropriate for age Moves all extremities. Full function Weakness generalization weakness. Cardiovascular: Rhythm is regular. Respiratory: Reports shortness of breath at rest Airway is patent Respiratory effort is even, unlabored, Respiratory pattern is regular, symmetrical, Breath sounds with wheezes bilaterally. GI: Abdomen is round distended, noted to have ascites, discolored, Bowel sounds present X 4 quads. : No signs and/or symptoms were reported regarding the genitourinary system. Urine is tea coloured. EENT: No signs and/or symptoms were reported regarding the EENT system. EENT: Eyes jaundice . Sclera/Cornea. Derm: No signs and/or symptoms reported regarding the dermatologic system. Skin is intact, is healthy with good turgor, Generalized Jaundice. Musculoskeletal: No signs and/or symptoms reported regarding the musculoskeletal system. Range of motion: intact in all extremities. 12/12 02:23 Reassessment: Report given to Butch HOBBS. tb4 02:42 Reassessment: Patient is alert, oriented x 3, equal unlabored respirations, skin tb4 warm/dry/pink. Patient states his pain has improved to 6/10, breathing is wnl but remains uncomfortable at times Patient states symptoms have improved. 03:09 Reassessment: Patient was picked up by EMS and taken to [facility]. General: Appears tb4 comfortable, Behavior is calm, cooperative. Neuro: Level of Consciousness is awake, alert, obeys commands, Oriented to person, place, time, situation, Moves all extremities. Full function Gait is steady, Speech is normal, Facial symmetry appears normal. Vital Signs: 12/11 22:15 BP 148 / 91 Supine; Pulse 97; Resp 17; Temp 97.9(O); Pulse Ox 97% ; Weight 77.11 kg; tb4 Height 5 ft. 7 in. ; Pain 10/10; 22:20 BP 132 / 92; Pulse 99; Pulse Ox 100% on R/A; tb4 23:25 BP 144 / 98; Pulse 77; Resp 19; Pulse Ox 97% on R/A; Pain 8/10; tb4 12/12 00:30 BP 125 / 86; Pulse 77; Resp 17; Pulse Ox 100% on R/A; Pain 6/10; tb4 01:30 BP 132 / 85; Pulse 73; Resp 16; Pulse Ox 98% on R/A; Pain 6/10; tb4 02:38 BP 139 / 86; Pulse 72; Resp 18; Pulse Ox 99% on R/A; Pain 5/10; tb4 12/11 22:15 Body Mass Index 26.63 (77.11 kg, 170.18 cm) tb4 12/11 22:15 Pain Scale: Adult tb4 23:25 Pain Scale: Adult tb4 12/12 00:30 Pain Scale: Adult tb4 01:30 Pain Scale: Adult tb4 02:38 Pain Scale: Adult tb4 ED Course: 12/11 22:06 Patient arrived in ED. rv1 22:08 Todd Lazaro MD is Attending Physician. bia 22:20 Inserted saline lock: 20 gauge in right antecubital area, using aseptic technique. rk3 Flushed with 10 mL NS. 22:23 Triage completed. tb4 22:33 EKG done, by ED staff, reviewed by Todd Lazaro MD. rk3 22:45 CT Abd/Pelvis - Without Contrast In Process Unspecified. EDMS 23:03 XRAY Chest (1 view) In Process Unspecified. EDMS 23:40 No provider procedures requiring assistance completed. Initial lab(s) drawn, by ED tb4 staff, sent to lab. First set of blood cultures drawn by ED staff, Second set of blood cultures drawn by ED staff, Urine collected: clean catch specimen, tea colored, X-ray(s) taken. 23:40 Patient has correct armband on for positive identification. Placed in gown. Bed in low tb4 position. Call light in reach. Side rails up X 1. Client placed on continuous cardiac and pulse oximetry monitoring. NIBP monitoring applied. Door closed. Warm blanket given. 12/12 01:25 Turcios cath inserted, using sterile technique, 16 Fr., by or, balloon inflated, to tb4 gravity drainage. 02:40 Arm band placed on right wrist. tb4 Administered Medications: 12/11 23:17 Drug: NS 0.9% IV 500 ml 500 ml IV at 1 bolus once; to be given as a bolus over 30 tb4 minutes Volume: 500 ml; Route: IV; Rate: 1 bolus; Site: right antecubital; 23:52 Follow up: Response: No adverse reaction; IV Status: Completed infusion tb4 23:17 Drug: Pantoprazole IVP 40 mg IVP once Route: IVP; Site: right antecubital; tb4 23:52 Follow up: Response: No adverse reaction tb4 23:17 Drug: Rocephin IV 1 grams IV at per protocol once; Given slow IV push per pharmacy tb4 instructions Route: IV; Rate: per protocol; Site: right antecubital; 23:51 Follow up: Response: No adverse reaction; IV Status: Completed infusion tb4 23:21 Drug: fentaNYL (PF) IVP 50 mcg IVP once Route: IVP; Site: right antecubital; tb4 23:53 Follow up: Response: No adverse reaction; Pain is decreased; RASS: Alert and Calm (0) tb4 23:21 Drug: Ondansetron IVP 4 mg IVP once; over 2 minutes Route: IVP; Site: right antecubital;tb4 23:54 Follow up: Response: No adverse reaction tb4 23:22 Drug: Thiamine IV 100 mg IV at bolus once Route: IV; Rate: bolus; Site: right tb4 antecubital; 23:52 Follow up: Response: No adverse reaction; IV Status: Completed infusion tb4 23:40 Drug: Banana Bag - (Multivitamin IV 1 amp, NS 0.9% IV 1000 ml, Thiamine IV 100 mg, tb4 foLIC Acid IVPB 1 mg) IV at 100 ml/hr once Route: IV; Rate: 100 ml/hr; Site: right antecubital; 12/12 03:13 Follow up: Response: No adverse reaction; IV Status: Completed infusion tb4 00:04 Drug: Phytonadione Sub-Q 10 mg Sub-Q once Route: Sub-Q; Site: abdomen; tb4 01:25 Follow up: Response: No adverse reaction tb4 01:25 Drug: HYDROmorphone IVP 0.5 mg IVP once Route: IVP; Site: right antecubital; tb4 03:08 Follow up: Response: No adverse reaction; Pain is decreased; RASS: Alert and Calm (0) tb4 01:25 Drug: Viscous Lidocaine Mucous Membrane Liquid (4 %) 5 ml Mucous Membrane once Route: tb4 Mucous Membrane; 03:08 Follow up: Response: No adverse reaction tb4 Medication: 02:41 VIS not applicable for this client. tb4 Outcome: 12/11 22:42 ER care complete, transfer ordered by MD. amezquita 12/12 03:13 Transferred by ground EMS to [facility], tb4 Condition: stable 03:14 Patient left the ED. tb4 Signatures: Dispatcher [employer] EDTodd Fontana MD MD cha Villegas, Rebecca rv1 John Nunez rk3 Deana Gustafson, RN RN tb4
[2024-12-11 22:52] LABS: PT Prothrombin Time 20.3 SECONDS (10-13.0); Protime INR 1.83
[2024-12-11] MEDS ORDERED: CEFTRIAXONE 1000 MG/VIAL ONE (22:57)
[2024-12-11] MEDS ORDERED: PANTOPRAZOLE 40 MG INJ ONE (22:57)
[2024-12-11] MEDS ORDERED: MULTIVITAMINS 10 ML VIAL (INJ) IV ONE (22:58)
[2024-12-11] MEDS ORDERED: THIAMINE 200 MG/2 ML INJ ONE (22:58)
[2024-12-11] MEDS ORDERED: NA CHLORIDE 0.9% 500 ML ONE (23:00)
[2024-12-11] MEDS ORDERED: FOLIC ACID 5 MG/ML VIAL ONE (23:00)
[2024-12-11] MEDS ORDERED: NA CHLORIDE 0.9% 1,000 ML ONE (23:00)
[2024-12-11 23:11] LABS: ALT/SGPT 55.0 U/L (16-61); AST/SGOT 205.0 U/L (15-37); Albumin 2.6 g/dL (3.4-5.0); Albumin/Globulin Ratio 0.7 (1.1-1.8); Alkaline Phosphatase 341.0 U/L (45-117); Anion Gap 10.3 mEq/L (5.0-15.0); BUN Blood Urea Nitrogen 4.0 mg/dL (7-18); Bilirubin Indirect, Calculated 2.8 mg/dL (0.2-0.8); Globulin 3.9 g/dL (2.3-3.5); Glucose Level 110.0 mg/dL (74-106); Lipase 32.0 U/L (13-75); Magnesium 1.9 mg/dL (1.6-2.4); NT PRO-BNP 93.0 pg/mL (<125); Potassium 3.3 mEq/L (3.5-5.1); Troponin High Sensitivity 4.5 pg/mL (<58.9)
[2024-12-11] MEDS ORDERED: ONDANSETRON 4 MG/2 ML VIAL ONE (23:15)
[2024-12-11] MEDS ORDERED: FENTANYL CITR 100 MCG/2 ML ONE (23:15)
[2024-12-11 23:48] LABS: Sqamous Epithelial None Seen /HPF (None Seen); Urine Culture Reflex Order NOT NEEDED; Urine Microscopic Reflex YN ORDER UMIC
[2024-12-11] MEDS ORDERED: VITAMIN K (ADULT) 10 MG/ML ONE (23:59)
--- NOTE | 2024-12-12 00:41 | RAD REPORT ---
EXAM: XR Chest, 1 View CLINICAL HISTORY: The patient is 29 years old and is Male; Abdominal distention. TECHNIQUE: Frontal view of the chest. COMPARISON: No relevant prior studies available. FINDINGS: LUNGS: Linear atelectasis and/or scarring in the left greater than right lung base. Lung volume s are diminished with mild vascular crowding. PLEURAL SPACE: Unremarkable. No pneumothorax. HEART: Unremarkable. No cardiomegaly. MEDIASTINUM: Unremarkable. Normal mediastinal contour. BONES/JOINTS: Unremarkable. No acute fracture. IMPRESSION: Linear atelectasis and/or scarring in the left greater than right lung base. Followup PA and lateral views would be helpful if symptoms persist. Electronically signed by: Francisco J Lawrence MD 12/12/2024 12:29 AM CDT RP Due to temporary technical issues with the PACS/eMinor reporting system, reports are being clement d by the in-house radiologist without review as a courtesy to ensure prompt reporting the interpreting radiologist is fully responsible for the content of the report. Transcribed Date/Time: 12/12/2024 12:41 AM
[2024-12-12] MEDS ORDERED: LIDOCAINE VISCOUS 2% 10ML ORAL SOLN ONE (01:04)
[2024-12-12] MEDS ORDERED: HYDROMORPHONE HCL 1 MG/ML INJ ONE (01:04)
[2024-12-12 03:54] VITALS: TEMP 97.9
[2024-12-12 04:03] VITALS: BP 139/86; O2SAT 99
--- NOTE | 2024-12-12 06:17 | RAD REPORT ---
EXAM: CTAbdomen and Pelvis Without Intravenous Contrast FACILITY: [facility] CLINICAL HISTORY: 29 years, Male; Abd pain; Abdominal distention TECHNIQUE: Axial computed tomography images of the abdomen and pelvis without intravenous contrast. Sagittal and coronal reformatted images were created and reviewed. This CT exam was performed using one or more of the following dose reduction techniques: automated exposure control, adjustment of the mA and/or k V according to patient size, and/or use of iterative reconstruction technique. COMPARISON: No relevant prior studies available. FINDINGS: Lung bases: Unremarkable. No mass. No consolidation. Mediastinum: Hiatal hernia. ABDOMEN: Liver: Cirrhotic morphology of the liver. Gallbladder and bile ducts: Gallbladder stone. No ductal dilation. Pancreas: Unremarkable. No ductal dilation. Spleen: Mild splenomegaly. Adrenals: Unremarkable. No mass. Kidneys and ureters: Nonobstructive bilateral nephrolithiasis. Stomach and bowel: Thickened transverse colon. No obstruction. PELVIS: Appendix: No findings to suggest acute appendicitis. Bladder: Unremarkable. No stones. Reproductive: Unremarkable as visualized. ABDOMEN and PELVIS: Intraperitoneal space: Moderate to large volume intra-abdominal ascites. No free air. Bones/joints: No acute fracture. No dislocation. Soft tissues: Unremarkable. Vasculature: Unremarkable. No abdominal aortic aneurysm. Lymph nodes: Unremarkable. No enlarged lymph nodes. IMPRESSION: 1. Cirrhotic morphology of the liver. 2. Moderate to large volume intra-abdominal ascites. 3. Thickened transverse colon. Findings can be seen in the setting of colitis. 4. Nonobstructive bilateral nephrolithiasis. 5. Gallbladder stone. Electronically signed by: Chayito Cornejo MD 12/12/2024 12:19 AM [facility] Due to temporary technical issues with the PACS/Reunify reporting system, reports are being clement d by the in-house radiologist without review as a courtesy to ensure prompt reporting the interpreting radiologist is fully responsible for the content of the report. Transcribed Date/Time: 12/12/2024 6:17 AM
== END 2024-12-12 03:14 | disposition short-term general hospital (02) ==
LOC: ER 22:02
DX: K70.31 Alcoholic cirrhosis of liver with ascites (principal); R33.8 Other retention of urine; F10.10 Alcohol abuse, uncomplicated; F17.210 Nicotine dependence, cigarettes, uncomplicated
CPT/HCPCS: 96365; 96367; 93005; 87040 ×2; 85025; 81001; 80048; 36415; 82140; 83735; 85610; 80076; 83605 ×2; 84484; 83690; 83880; 74176; 71045; 51702; 96375; 96372; 99285; 96366; 82077; J3411; J3430; J2470; J3010; J1171; J2405; J7040; J7030; J0696

== ENCOUNTER 2024-12-19 00:53 | Emergency (ER) | payer OTHER ==
[2024-12-19] MEDS ORDERED: ONDANSETRON 4 MG/2 ML VIAL ONE ×2 (01:35→03:11)
[2024-12-19 01:41] LABS: White Blood Count 16.10 thou/uL (4.3-10.9)
[2024-12-19 01:44] LABS: PT Prothrombin Time 17.7 SECONDS (10-13.0); PTT, Activated Partial Thromb 37.9 SECONDS (27.2-37.4); Protime INR 1.59
[2024-12-19 01:48] LABS: Hematocrit 31.2 % (39.6-49.0); Hemoglobin 10.7 g/dL (13.6-17.9); MCH 32.5 pg (27.0-35.0); MCHC 34.2 g/dL (32.0-36.0); MCV 95.0 fL (80-100); RBC Red Blood Cell Count 3.28 M/uL (4.33-5.43)
[2024-12-19 01:49] LABS: Absolute Lymphocytes (CBC) 1.8 K/uL (0.7-4.9); MPV 9.6 fL (7.6-11.3); Nucleated RBC Absolute Count 0.0 (0-0); Nucleated Red Blood Cells % 0.1 % (0-0)
[2024-12-19 01:55] LABS: ALT/SGPT 40.0 U/L (16-61); AST/SGOT 157.0 U/L (15-37); Albumin 2.2 g/dL (3.4-5.0); Albumin/Globulin Ratio 0.5 (1.1-1.8); Alkaline Phosphatase 307.0 U/L (45-117); Anion Gap 12.3 mEq/L (5.0-15.0); BUN Blood Urea Nitrogen 7.0 mg/dL (7-18); Globulin 4.1 g/dL (2.3-3.5); Glucose Level 205.0 mg/dL (74-106); Lipase 60.0 U/L (13-75); NT PRO-BNP 74.0 pg/mL (<125); Potassium 3.3 mEq/L (3.5-5.1); Troponin High Sensitivity 3.1 pg/mL (<58.9)
[2024-12-19 02:20] LABS: Sqamous Epithelial <5 /HPF (None Seen); Urine Culture Reflex Order NOT NEEDED; Urine Microscopic Reflex YN ORDER UMIC
[2024-12-19] MEDS ORDERED: HYDROMORPHONE HCL 1 MG/ML INJ ONE ×2 (03:11→06:54)
--- NOTE | 2024-12-19 03:16 | EDPHYS ---
Physician Documentation [facility] Name: Jose Toscano Age: 29 yrs Sex: Male : 1995 Arrival Date: 12/19/2024 Time: 00:53 Bed 14 Private MD: ED Physician Kira Mcgee HPI: 12/19 01:14 This 29 yrs old Male presents to ER via EMS with complaints of abdominal pain, ascites. sp3 01:14 29-year-old male with history of alcohol abuse, liver cirrhosis, bipolar disease, PTSD, sp3 schizophrenia presents to the ED for recurrent ascites, worsening jaundice and diffuse abdominal pain. Patient was seen here earlier this month and transferred to [facility] where he had multiple ascites drainage procedures. He states he has an outpatient appointment on December 29 but is unable to make it due to worsening symptoms. He denies fever, headache, chest pain, shortness of breath, diarrhea, syncope, or any other signs or symptoms on ROS at this time.. Historical: - Allergies: 00:57 avacodo; kt5 00:57 Wasps; kt5 00:57 pecan; kt5 - Home Meds: 00:57 amoxicillin-pot clavulanate 875-125 mg Oral tablet 1 tab 2 times per day [Active]; kt5 carvedilol 3.125 mg Oral tablet 1 tab 2 times per day [Active]; clindamycin HCl 300 mg Oral capsule 1 cap daily [Active]; Ferrous Sulfate Oral [Active]; spironolactone 100 mg Oral tablet 1 tab daily [Active]; propranolol 10 mg Oral tablet 1 tabs 2 times per day [Active]; prednisone 20 mg Oral tablet 1 tabs daily [Active]; furosemide 40 mg Oral tablet 1 tab daily [Active]; - PMHx: 00:57 adhd; alcohol abuse; cirrhosis of liver; Bi-polar; PTSD; Schizophrenia; kt5 - PSHx: 00:57 dental; paracentesis; kt5 - Immunization history:: Adult Immunizations up to date, Client reports having NOT received the Covid vaccine. Last tetanus immunization: not up to date. Pneumococcal vaccine is not up to date. - Infectious Disease History:: Denies. - Social history:: Smoking status: Patient reports the use of cigarette tobacco products, smokes one pack cigarettes per day. Patient uses alcohol, on a daily basis. Patient/guardian denies using street drugs. ROS: 01:15 ENT: Negative for injury, pain, and discharge, Neck: Negative for injury, pain, and sp3 swelling, Cardiovascular: Negative for chest pain, palpitations, and edema, Respiratory: Negative for shortness of breath, cough, wheezing, and pleuritic chest pain, Back: Negative for injury and pain, MS/Extremity: Negative for injury and deformity, Psych: Negative for depression, anxiety, suicide ideation, homicidal ideation, and hallucinations, Allergy/Immunology: Negative for hives, rash, and allergies, 01:15 All other systems are negative, Exam: 01:17 Constitutional: This is a well developed, well nourished patient who is awake, alert, sp3 and in no acute distress. Head/Face: Normocephalic, atraumatic. ENT: Nares patent. No nasal discharge, no septal abnormalities noted. External auditory canals are clear. Oropharynx with no redness, swelling, or masses, exudates, or evidence of obstruction, uvula midline. Mucous membranes moist. Neck: Trachea midline, no thyromegaly or masses palpated, and no cervical lymphadenopathy. Supple, full range of motion without nuchal rigidity, or vertebral point tenderness. No Meningismus. Chest/axilla: Normal chest wall appearance and motion. Nontender with no deformity. No lesions are appreciated. Cardiovascular: Regular rate and rhythm with a normal S1 and S2. No gallops, murmurs, or rubs. Normal PMI, no JVD. No pulse deficits. Respiratory: Lungs have equal breath sounds bilaterally, clear to auscultation and percussion. No rales, rhonchi or wheezes noted. No increased work of breathing, no retractions or nasal flaring. Back: No spinal tenderness. No costovertebral tenderness. Full range of motion. 01:17 Eyes: Sclera: icterus, :17 Abdomen/GI: Distended abdomen with ascites. Extreme jaundice noted., 01:17 Skin: Appearance: Extreme jaundice noted. 03:43 ECG was reviewed by the Attending Physician. EKG demonstrates sinus tachycardia at 102 sp3 bpm with normal intervals, normal QRS, normal axis and nonspecific diffuse ST/T changes without evidence of acute ischemia. Vital Signs: 00:55 BP 142 / 92; Pulse 103; Resp 18 S; Temp 98.7; Pulse Ox 97% on R/A; Weight 77.11 kg; kt5 Height 5 ft. 7 in. ; Pain 10/10; 00:57 BP 135 / 92; Pulse 97; Resp 18; Pulse Ox 99% ; Pain 10/10; kt5 02:34 BP 134 / 93; Pulse 96; Resp 20 S; Pulse Ox 95% on R/A; Pain 10/10; kt5 03:40 BP 135 / 79; Pulse 93; Resp 18 S; Pulse Ox 96% on R/A; kt5 04:40 BP 129 / 79; Pulse 91; Resp 18; Pulse Ox 99% ; Pain 0/10; kt5 06:03 BP 115 / 72; Pulse 88; Resp 18; Temp 98.4; Pulse Ox 98% ; Pain 4/10; kt5 06:47 BP 115 / 72; Pulse 88; Resp 16; Temp 98.6; Pulse Ox 98% ; Pain 9/10; kt5 00:55 Body Mass Index 26.63 (77.11 kg, 170.18 cm) kt5 00:55 Pain Scale: Adult kt5 00:57 Pain Scale: Adult kt5 02:34 Pain Scale: Adult kt5 04:40 Pain Scale: Adult kt5 06:03 Pain Scale: Adult kt5 06:47 Pain Scale: Adult kt5 MDM: 00:55 Medical Screening Exam initiated sp3 01:18 Data reviewed: vital signs, nurses notes, old medical records, lab test result(s), EKG, sp3 radiologic studies. ED course: 29-year-old male with PMH above including liver cirrhosis and alcohol abuse, presents to the ED for recurrent ascites diffuse abdominal pain and general discomfort. Will obtain full workup from a sepsis standpoint including total bilirubin. If high consider transfer to [facility] for GI consult and ascites drainage.. 03:14 ED course: Total bilirubin 17 and lactate 2.4. Will transfer to [facility] for sp3 drainage and liver consult. 03:54 ED course: Discussed with internal medicine at [facility] who have excepted this sp3 patient to obs telemetry.. 12/19 01:07 Order name: BNP; Complete Time: 02:00 sp3 12/19 01:07 Order name: Blood Culture Adult (2) sp3 25 01:07 Order name: CBC with Diff; Complete Time: 01:59 3 12/19 01:07 Order name: CMP; Complete Time: 01:59 12/19 01:07 Order name: Lactate w/ 2H reflex if indic.; Complete Time: 02:00 12/19 01:07 Order name: Protime (+inr); Complete Time: 02:00 3 12/19 01:07 Order name: Ptt, Activated; Complete Time: 02:00 12/19 01:07 Order name: Troponin HS; Complete Time: 02:00 12/19 01:07 Order name: Lipase; Complete Time: 02:00 3 12/19 01:53 Order name: UA Rfx Dom Cult if indicated; Complete Time: 03:09 cp 12/19 02:01 Order name: Ghost Lactate-NO COLLECT Timer; Complete Time: 03:57 EDMS 12/19 04:54 Order name: Lactate Sepsis 2 HR Follow-up; Complete Time: 06:25 EDMS 12/19 01:07 Order name: Chest Single View XRAY 12/19 01:07 Order name: EKG; Complete Time: 01:08 3 12/19 01:07 Order name: Cardiac monitoring; Complete Time: : 12/19 01:07 Order name: EKG - Nurse/Tech; Complete Time: 01:55 12/19 01:07 Order name: IV Saline Lock - Large Bore; Complete Time: : 12/19 01:07 Order name: Labs collected and sent; Complete Time: : 12/19 01:07 Order name: O2 Per Protocol; Complete Time: :12/19 01:07 Order name: O2 Sat Monitoring; Complete Time: : 12/19 01:07 Order name: Vital Signs; Complete Time: : sp Administered Medications: 01:42 Drug: Ondansetron IVP 4 mg IVP once; over 2 minutes Route: IVP; Site: left antecubital; kt5 01:50 Follow up: Response: No adverse reaction; Nausea unchanged kt5 03:13 CANCELLED (error): rocephin1 grams IV at calculated rate once; Given slow IV push per 3 pharmacy instructions 03:15 Drug: HYDROmorphone IVP 1 mg IVP once Route: IVP; Site: right antecubital; kt5 04:05 Follow up: Response: No adverse reaction; Pain is decreased kt5 03:15 Drug: Ondansetron IVP 4 mg IVP once; over 2 minutes Route: IVP; Site: right antecubital;kt5 04:06 Follow up: Response: No adverse reaction; Nausea is decreased kt5 03:35 Drug: NS 0.9% IV 500 ml 500 ml IV at 1 bolus once; to be given as a bolus over 60 kt5 minutes Volume: 500 ml; Route: IV; Rate: 1 bolus; Site: right antecubital; 04:07 Follow up: Response: No adverse reaction; IV Status: Completed infusion; IV Intake: kt5 500ml 07:03 Drug: HYDROmorphone IVP 1 mg IVP once Route: IVP; Site: right antecubital; kt5 07:05 Follow up: Response: No adverse reaction kt5 Disposition Summary: 12/19/24 03:16 Transfer Ordered Notes: Transfer Location: [facility] sp3 Reason: Higher level of care sp3 Condition: Stable sp3 Problem: an acute exacerbation sp3 Symptoms: have worsened sp3 Accepting Physician: [facility] care team(12/19/24 07:15) kt5 Diagnosis - Hyperbilirubinemia, alcoholic cirrhosis, liver failure sp3 Forms: - Medication Reconciliation Form sp3 - SBAR form sp3 Signatures: Dispatcher [employer] EDMS Todd Sarabia PA-C PA-C cp Patel, Setul, MD MD sp3 Kanwal Seaman RN RN kt5 Corrections: (The following items were deleted from the chart) 01:08 01:08 PROBNP+C.LAB.BRZ ordered. EDMS EDMS 01:08 01:08 BLOOD CULTURE*+BA.LAB.BRZ ordered. EDMS EDMS 01:08 01:08 CBC+H.LAB.BRZ ordered. EDMS EDMS 01:08 01:08 COMPREHENSIVE METABOLIC PANEL+C.LAB.BRZ ordered. EDMS EDMS 01:08 01:08 LACTATE+C.LAB.BRZ ordered. EDMS EDMS 01:08 01:08 PROTIME (+INR)+COAG.LAB.BRZ ordered. EDMS EDMS 01:08 01:08 PTT, ACTIVATED+COAG.LAB.BRZ ordered. EDMS EDMS 01:08 01:08 Troponin High Sensitivity+C.LAB.BRZ ordered. EDMS EDMS 01:08 01:08 LIPASE+C.LAB.BRZ ordered. EDMS EDMS 01:54 01:54 UA Rfx Dom Cult if indicated+U.LAB.BRZ ordered. EDMS EDMS 03:13 02:01 Rocephin IV 1 grams IV at calculated rate once; Given slow IV push per pharmacy sp3 instructions ordered. cp 07:14 03:16 [facility] care team sp3 kt5 07:15 07:14 [facility] care team kt5 kt5
--- NOTE | 2024-12-19 03:16 | ER ---
Nurse's Notes [facility] Name: Jose Toscano Age: 29 yrs Sex: Male : 1995 Arrival Date: 12/19/2024 Time: 00:53 Bed 14 Private MD: Diagnosis: Hyperbilirubinemia, alcoholic cirrhosis, liver failure Presentation: 12/19 00:55 Initial Sepsis Screen: Does the patient meet any 2 criteria? HR > 90 bpm. Risk kt5 Assessment: Do you want to hurt yourself or someone else? Patient reports no desire to harm self or others. Onset of symptoms was December 18, 2024 at 22:00. 00:55 Method Of Arrival: EMS: [facility] kt5 00:55 Acuity: TIESHA 2 kt5 00:55 Chief complaint: EMS states: abd pain and distention. Coronavirus screen: Vaccine kt5 status: Patient reports being unvaccinated. Ebola Screen: No symptoms or risks identified at this time. Initial Sepsis Screen: Does the patient have a suspected source of infection? No. Patient's initial sepsis screen is negative. Triage Assessment: 00:57 General: Appears uncomfortable, unkempt, Behavior is cooperative, anxious. Pain: kt5 Complains of pain in abdomen Pain currently is 10 out of 10 on a pain scale. Quality of pain is described as sharp, Pain began 3 hours ago. Is continuous. Neuro: No deficits noted. Yoon Agitation-Sedation Scale (RASS): +1 Restless Level of Consciousness is awake, alert, obeys commands, Oriented to person, place, time, situation. Cardiovascular: No deficits noted. Denies chest pain, Heart tones S1 S2 present Capillary refill < 3 seconds Clubbing of nail beds is absent JVD is absent. GI: Abdomen is round distended, noted to have ascites, Bowel sounds diminished in right upper quadrant, left upper quadrant, right lower quadrant and left lower quadrant Abdomen is tender to palpation X 4 quads. Abdomen has rebound tenderness X 4 quads. Abd is rigid X 4 quads. Guarding noted X 4 quads. : No deficits noted. No signs and/or symptoms were reported regarding the genitourinary system. Derm: Skin is fragile, Skin is dry, Skin is jaundiced, Skin temperature is warm. Musculoskeletal: No deficits noted. No signs and/or symptoms reported regarding the musculoskeletal system. 00:57 EENT: Eyes jaundice bilaterally. kt5 00:57 Respiratory: Airway is patent Trachea midline Respiratory effort is even, labored, kt5 Respiratory pattern is symmetrical, Breath sounds are diminished in left lower lobe and right lower lobe. Historical: - Allergies: 00:57 avacodo; kt5 00:57 Wasps; kt5 00:57 pecan; kt5 - Home Meds: 00:57 amoxicillin-pot clavulanate 875-125 mg Oral tablet 1 tab 2 times per day [Active]; kt5 carvedilol 3.125 mg Oral tablet 1 tab 2 times per day [Active]; clindamycin HCl 300 mg Oral capsule 1 cap daily [Active]; Ferrous Sulfate Oral [Active]; spironolactone 100 mg Oral tablet 1 tab daily [Active]; propranolol 10 mg Oral tablet 1 tabs 2 times per day [Active]; prednisone 20 mg Oral tablet 1 tabs daily [Active]; furosemide 40 mg Oral tablet 1 tab daily [Active]; - PMHx: 00:57 adhd; alcohol abuse; cirrhosis of liver; Bi-polar; PTSD; Schizophrenia; kt5 - PSHx: 00:57 dental; paracentesis; kt5 - Immunization history:: Adult Immunizations up to date, Client reports having NOT received the Covid vaccine. Last tetanus immunization: not up to date. Pneumococcal vaccine is not up to date. - Infectious Disease History:: Denies. - Social history:: Smoking status: Patient reports the use of cigarette tobacco products, smokes one pack cigarettes per day. Patient uses alcohol, on a daily basis. Patient/guardian denies using street drugs. Screenin:19 [facility] ED Fall Risk Assessment (Adult) History of falling in the last 3 months, kt5 including since admission No falls in past 3 months (0 pts) Confusion or Disorientation No (0 pts) Intoxicated or Sedated No (0 pts) Impaired Gait No (0 pts) Mobility Assist Device Used No (0 pt) Altered Elimination No (0 pt) Score/Fall Risk Level 0 - 2 = Low Risk Oriented to surroundings, Maintained a safe environment. Abuse screen: Denies threats or abuse. Nutritional screening: Had unintentional weight gain of 10 pounds or more. Tuberculosis screening: No symptoms or risk factors identified. Assessment: :19 General: see triage. kt5 01:31 General: tech at for pcxr. kt5 02:34 Reassessment: No changes from previously documented assessment. Patient and/or family kt5 updated on plan of care and expected duration. Pain level reassessed. Patient is alert, oriented x 3, equal unlabored respirations, skin warm/dry/pink. Patient states symptoms have not improved. 03:40 Reassessment: Patient appears in no apparent distress at this time. Patient and/or kt5 family updated on plan of care and expected duration. Pain level reassessed. Patient is alert, oriented x 3, equal unlabored respirations, skin warm/dry/pink. Patient denies pain at this time. Patient states feeling better. Patient states symptoms have improved. 04:58 Reassessment: Patient appears in no apparent distress at this time. Patient and/or kt5 family updated on plan of care and expected duration. Pain level reassessed. Patient is alert, oriented x 3, equal unlabored respirations, skin warm/dry/pink. Patient denies pain at this time. Patient states feeling better. Patient states symptoms have improved. 06:03 Reassessment: Patient appears in no apparent distress at this time. Patient and/or kt5 family updated on plan of care and expected duration. Pain level reassessed. Patient is alert, oriented x 3, equal unlabored respirations, skin warm/dry/pink. pt resting comfortable, alo4, nad, on all monitors,v/s/s, call button in reach, will cont to monitor, waiting transport to [facility] Patient states feeling better. Patient states symptoms have improved. 06:09 General: report given to Ramy rdz at [facility], all questions answered. kt5 06:47 General: REPORT GIVEN TO REUBEN GARCIA, ALL QUESTIONS ANSWERED. kt5 07:01 Reassessment: Patient appears in no apparent distress at this time. Patient and/or kt5 family updated on plan of care and expected duration. Pain level reassessed. Patient is alert, oriented x 3, equal unlabored respirations, skin warm/dry/pink. Patient denies pain at this time. Patient states feeling better. Patient states symptoms have improved. Vital Signs: 00:55 BP 142 / 92; Pulse 103; Resp 18 S; Temp 98.7; Pulse Ox 97% on R/A; Weight 77.11 kg; kt5 Height 5 ft. 7 in. ; Pain 10/10; 00:57 BP 135 / 92; Pulse 97; Resp 18; Pulse Ox 99% ; Pain 10/10; kt5 02:34 BP 134 / 93; Pulse 96; Resp 20 S; Pulse Ox 95% on R/A; Pain 10/10; kt5 03:40 BP 135 / 79; Pulse 93; Resp 18 S; Pulse Ox 96% on R/A; kt5 04:40 BP 129 / 79; Pulse 91; Resp 18; Pulse Ox 99% ; Pain 0/10; kt5 06:03 BP 115 / 72; Pulse 88; Resp 18; Temp 98.4; Pulse Ox 98% ; Pain 4/10; kt5 06:47 BP 115 / 72; Pulse 88; Resp 16; Temp 98.6; Pulse Ox 98% ; Pain 9/10; kt5 00:55 Body Mass Index 26.63 (77.11 kg, 170.18 cm) kt5 00:55 Pain Scale: Adult kt5 00:57 Pain Scale: Adult kt5 02:34 Pain Scale: Adult kt5 04:40 Pain Scale: Adult kt5 06:03 Pain Scale: Adult kt5 06:47 Pain Scale: Adult kt5 ED Course: 00:55 Patient arrived in ED. kt5 00:55 Kira Mcgee MD is Attending Physician. sp3 00:57 Triage completed. kt5 00:57 Arm band placed on right wrist. kt5 01:19 Patient has correct armband on for positive identification. Bed in low position. Call kt5 light in reach. Side rails up X 1. Client placed on continuous cardiac and pulse oximetry monitoring. NIBP monitoring applied. applications processor on. Door closed. Warm blanket given. Pillow given. 01:19 Maintain EMS IV. Dressing intact. Good blood return noted. Site clean \T\ dry. Gauge \T\ kt 5 site: 20 lac. Flushed with 10 mL NS. 01:22 CBC with Diff Sent. kt5 01:22 CMP Sent. kt5 01:22 Lactate w/ 2H reflex if indic. Sent. kt5 01:22 Protime (+inr) Sent. kt5 01:22 Ptt, Activated Sent. kt5 01:22 Troponin HS Sent. kt5 01:24 First set of blood cultures drawn by me. oe 01:38 Chest Single View XRAY In Process Unspecified. EDMS 01:42 Kanwal Seaman, RN is Primary Nurse. kt5 01:42 Second set of blood cultures drawn by me. oe 01:49 Blood Culture Adult (2) Sent. kt5 01:50 Inserted saline lock: 20 gauge in right antecubital area, using aseptic technique. oe Blood collected. Flushed with 10 mL NS. 01:51 Lipase Sent. kt5 01:59 Todd Sarabia PA-C is PHCP. cp 02:09 EKG done, by ED staff, reviewed by Kira Mcgee MD. oe 03:13 initiated transfer with [facility]. vk 06:06 Patient was accepted to [facility] to Dr. Blount \T\[id number]. vk 07:13 Provided Education on: FOLLOW UP. kt5 07:13 No provider procedures requiring assistance completed. kt5 Administered Medications: 01:42 Drug: Ondansetron IVP 4 mg IVP once; over 2 minutes Route: IVP; Site: left antecubital; kt5 01:50 Follow up: Response: No adverse reaction; Nausea unchanged kt5 03:13 CANCELLED (error): [email or web address] grams IV at calculated rate once; Given slow IV push per sp3 pharmacy instructions 03:15 Drug: HYDROmorphone IVP 1 mg IVP once Route: IVP; Site: right antecubital; kt5 04:05 Follow up: Response: No adverse reaction; Pain is decreased kt5 03:15 Drug: Ondansetron IVP 4 mg IVP once; over 2 minutes Route: IVP; Site: right antecubital;kt5 04:06 Follow up: Response: No adverse reaction; Nausea is decreased kt5 03:35 Drug: NS 0.9% IV 500 ml 500 ml IV at 1 bolus once; to be given as a bolus over 60 kt5 minutes Volume: 500 ml; Route: IV; Rate: 1 bolus; Site: right antecubital; 04:07 Follow up: Response: No adverse reaction; IV Status: Completed infusion; IV Intake: kt5 500ml 07:03 Drug: HYDROmorphone IVP 1 mg IVP once Route: IVP; Site: right antecubital; kt5 07:05 Follow up: Response: No adverse reaction kt5 Medication: 01:19 VIS not applicable for this client. kt5 Intake: 04:07 IV: 500ml; Total: 500ml. kt5 Outcome: 03:16 ER care complete, transfer ordered by . sp3 07:13 Transferred by ground EMS Note: [facility] kt5 07:13 Condition: improved 07:15 Patient left the ED. kt5 Signatures: Dispatcher [employer] EDMS Todd Saarbia PA-C PA-C cp Espinosa, Orlando oe Patel, Setul, MD MD sp3 Jacy Mccray Keri, RN RN kt5 Corrections: (The following items were deleted from the chart) 01:18 00:57 Cardiovascular: No deficits noted. Denies chest pain, Heart tones S1 S2 present kt5 kt5 01:18 00:57 Respiratory: Reports shortness of breath at rest on exertion Airway is patent kt5 Trachea midline Respiratory effort is even, unlabored, Respiratory pattern is regular, symmetrical, kt5 01:18 00:57 GI: Abdomen is round distended, Bowel sounds present X 4 quads. Abdomen is tender kt5 to palpation X 4 quads. Abdomen has rebound tenderness X 4 quads. kt5 01:41 00:57 Respiratory: Airway is patent Trachea midline Respiratory effort is even, kt5 labored, Respiratory pattern is symmetrical, kt5 02:03 00:57 Neuro: No deficits noted. Yoon Agitation-Sedation Scale (RASS): 0 - Alert and kt5 Calm Level of Consciousness is awake, alert, obeys commands, Oriented to person, place, time, situation, kt5 03:17 02:34 Reassessment: Patient appears in no apparent distress at this time. Patient kt5 and/or family updated on plan of care and expected duration. Pain level reassessed. Patient is alert, oriented x 3, equal unlabored respirations, skin warm/dry/pink. Patient states symptoms have not improved. kt5 04:56 03:40 Reassessment: Patient appears in no apparent distress at this time. Patient kt5 and/or family updated on plan of care and expected duration. Pain level reassessed. Patient is alert, oriented x 3, equal unlabored respirations, skin warm/dry/pink. Patient states feeling better. Patient states symptoms have improved. kt5 04:56 04:09 Reassessment: Patient appears in no apparent distress at this time. Patient kt5 and/or family updated on plan of care and expected duration. Pain level reassessed. Patient is alert, oriented x 3, equal unlabored respirations, skin warm/dry/pink. Patient states feeling better. Patient states symptoms have improved. kt5 06:36 06:03 BP 115 / 72; Pulse 88bpm; Resp 18bpm; Pulse Ox 98%; Pain 4/10, Adult; kt5 kt5
[2024-12-19] MEDS ORDERED: NA CHLORIDE 0.9% 500 ML ONE (03:18)
--- NOTE | 2024-12-19 07:42 | RAD REPORT ---
EXAMINATION: ONE VIEW CHEST XR CLINICAL INDICATION: Male, 29 years old.,MALAISE TECHNIQUE: Frontal chest projection is submitted. Examination is limited by patient positioning and t echnique. COMPARISON: 12/11/2024 FINDINGS: The lungs are somewhat hypo inflated and clear apart from bibasilar linear opacities suggestive of at electasis. No pneumothorax or sizable effusion. The heart is normal in size. Mediastinal contours are unremarkable. IMPRESSION: No acute intrathoracic abnormalities.
[2024-12-19 07:54] VITALS: BP 115/72; O2SAT 98
[2024-12-19 07:56] VITALS: TEMP 98.6
== END 2024-12-19 07:15 | disposition short-term general hospital (02) ==
LOC: ER 00:53
DX: K72.90 Hepatic failure, unspecified without coma (principal); K70.30 Alcoholic cirrhosis of liver without ascites; E80.6 Other disorders of bilirubin metabolism
CPT/HCPCS: 93005; 87040 ×2; 85025; 81001; 36415; 85610; 83605 ×2; 85730; 84484; 83690; 80053; 83880; 71045; 99285; J1171 ×2; J2405 ×2; J7040

== ENCOUNTER 2024-12-27 10:41 | Emergency (ER) | payer OTHER ==
[2024-12-27 11:08] LABS: Absolute Lymphocytes (CBC) 2.6 K/uL (0.7-4.9); Hematocrit 31.5 % (39.6-49.0); Hemoglobin 10.7 g/dL (13.6-17.9); MCH 32.4 pg (27.0-35.0); MCHC 33.8 g/dL (32.0-36.0); MCV 96.0 fL (80-100); MPV 9.5 fL (7.6-11.3); Nucleated RBC Absolute Count 0.0 (0-0); Nucleated Red Blood Cells % 0.0 % (0-0); RBC Red Blood Cell Count 3.29 M/uL (4.33-5.43); White Blood Count 17.20 thou/uL (4.3-10.9)
[2024-12-27] MEDS ORDERED: ONDANSETRON 4 MG/2 ML VIAL ONE (11:13)
[2024-12-27 11:18] LABS: PT Prothrombin Time 17.1 SECONDS (10-13.0); PTT, Activated Partial Thromb 36.3 SECONDS (27.2-37.4); Protime INR 1.53
[2024-12-27 11:29] LABS: ALT/SGPT 37.0 U/L (16-61); AST/SGOT 183.0 U/L (15-37); Albumin 1.9 g/dL (3.4-5.0); Albumin/Globulin Ratio 0.4 (1.1-1.8); Alkaline Phosphatase 434.0 U/L (45-117); Anion Gap 10.3 mEq/L (5.0-15.0); BUN Blood Urea Nitrogen 5.0 mg/dL (7-18); Globulin 4.7 g/dL (2.3-3.5); Glucose Level 123.0 mg/dL (74-106); NT PRO-BNP 48.0 pg/mL (<125); Potassium 3.3 mEq/L (3.5-5.1); Troponin High Sensitivity 5.0 pg/mL (<58.9)
--- NOTE | 2024-12-27 12:44 | RAD REPORT ---
PROCEDURE: ULTRASOUND GUIDED PARACENTESIS CLINICAL INDICATION: [facility] MA[facility] ascites PROCEDURE DETAILS: Consent: Informed consent for the procedure including risks, benefits and alternatives was obtained a nd time-out was performed prior to the procedure. Preparation: The site was prepared and draped using maximal sterile barrier technique including cutan eous antisepsis. Procedure: Initial limited abdominal ultrasound was performed and a large amount of ascites was seen. A safe window for paracentesis was identified with ultrasound to [place] a suitable access site. Local anesthesia was administered. The peritoneal cavity was accessed, and fluid return confirmed pos ition. A 6F catheter was placed and clear yellowish ascites was drained. The catheter was removed, and a sterile bandage was applied. Following the procedure, albumin was administered per protocol. IMPRESSION: Successful ultrasound-guided diagnostic and therapeutic paracentesis. A total of 3.5 L was drained. PLAN: Aspirated fluid was sent for analysis.
--- NOTE | 2024-12-27 14:02 | ER ---
Nurse's Notes [facility] Name: Jose Toscano Age: 29 yrs Sex: Male : 1995 Arrival Date: 12/27/2024 Time: 10:41 Bed 5 Private MD: Diagnosis: Liver cirrhosis, ascites Presentation: 12/27 10:49 Chief complaint: EMS states: Toned out for ascites, hx of ascites, N/V, unable to jl7 urinate and no BM x 3 days, last drained 2 weeks ago. Coronavirus screen: At this time, the client does not indicate any symptoms associated with coronavirus-19. Ebola Screen: No symptoms or risks identified at this time. Initial Sepsis Screen: Does the patient meet any 2 criteria? No. Patient's initial sepsis screen is negative. Does the patient have a suspected source of infection? No. Patient's initial sepsis screen is negative. Risk Assessment: Do you want to hurt yourself or someone else? Patient reports no desire to harm self or others. Onset of symptoms is unknown. Care prior to arrival: IV initiated. 20 GA, in the right antecubital area. 10:49 Method Of Arrival: EMS: [facility] jl7 10:49 Acuity: TIESHA 3 jl7 Triage Assessment: 11:02 General: Appears in no apparent distress. uncomfortable, Behavior is calm, cooperative, jl7 appropriate for age. Pain: Complains of pain in abdomen Pain currently is 10 out of 10 on a pain scale. Neuro: Yoon Agitation-Sedation Scale (RASS): -1 Drowsy Level of Consciousness is awake, alert, obeys commands, Oriented to person, place, time, situation. Cardiovascular: Patient's skin is warm and dry. Respiratory: Airway is patent Respiratory effort is even, unlabored, Respiratory pattern is regular, symmetrical. GI: Abdomen is round distended, noted to have ascites, discolored. : Reports inability to void. Derm: Skin is jaundiced. Historical: - Allergies: 10:51 avacodo; jl7 10:51 pecan; jl7 10:51 Wasps; jl7 - PMHx: 10:51 adhd; alcohol abuse; Bi-polar; cirrhosis of liver; PTSD; Schizophrenia; esophageal jl7 varices (paracentesis); - PSHx: 10:51 dental; paracentesis; jl7 - Immunization history:: Adult Immunizations unknown. - Social history:: Smoking status: Patient reports the use of cigarette tobacco products, Patient uses alcohol. Screenin:24 [facility] ED Fall Risk Assessment (Adult) History of falling in the last 3 months, jl7 including since admission No falls in past 3 months (0 pts) Confusion or Disorientation Yes (5 pts) Intoxicated or Sedated Yes (3 pts) Impaired Gait Yes (1 pt) Mobility Assist Device Used No (0 pt) Altered Elimination No (0 pt) Score/Fall Risk Level 3 or more points = High Risk Oriented to surroundings, Maintained a safe environment, Assessed \T\ reinforced patient's understanding of fall precautions, Hourly rounding (assess needs \T\ fall precautionary measures) done. Abuse screen: Denies threats or abuse. Denies injuries from another. Nutritional screening: No deficits noted. Tuberculosis screening: No symptoms or risk factors identified. Assessment: 11:24 General: See triage assessment. jl7 11:31 Reassessment: US tech transporting pt to US room for paracentesis. jl7 12:30 Reassessment: Pt returned, 3.5 L off. jl7 13:30 Reassessment: Patient appears in no apparent distress at this time. No changes from jl7 previously documented assessment. Patient and/or family updated on plan of care and expected duration. Pain level reassessed. Patient is alert, oriented x 3, equal unlabored respirations, skin warm/dry/pink. 14:26 Reassessment: Awaiting transportation. jl7 Vital Signs: 10:49 BP 147 / 93; Pulse 119; Resp 17; Temp 98.6; Pulse Ox 97% ; Weight 83.01 kg; Height 5 jl7 ft. 7 in. ; Pain 10/10; 11:24 BP 146 / 101; Pulse 110; Resp 15; Pulse Ox 94% ; jl7 12:35 BP 118 / 81; Pulse 108; Resp 20; Pulse Ox 100% ; ar8 13:24 BP 130 / 87; Pulse 92; Resp 15; Pulse Ox 98% ; jl7 14:20 BP 126 / 87; Pulse 94; Resp 14; Pulse Ox 96% ; cf3 10:49 Body Mass Index 28.66 (83.01 kg, 170.18 cm) jl7 10:49 Pain Scale: Adult jl7 ED Course: 10:44 Patient arrived in ED. eb 10:49 Kira Mcgee MD is Attending Physician. sp3 10:49 Jesse Naqvi RN is Primary Nurse. jl7 10:50 Maintain EMS IV. Dressing intact. Good blood return noted. Site clean \T\ dry. Gauge \T\ ar 8 site: 20G R AC. Flushed with 10 mL NS. 10:50 Bed in low position. Call light in reach. Side rails up X2. ar8 10:50 Provided Education on: plan of care. Client placed on continuous cardiac and pulse ar8 oximetry monitoring. NIBP monitoring applied. Warm blanket given. 10:51 Triage completed. jl7 10:51 EKG done, by ED staff, reviewed by Kira Mcgee MD. ap3 11:02 Arm band placed on right wrist. jl7 12:20 Paracentesis Proc Guidance In Process Unspecified. EDMS 12:33 Patient moved back from ultrasound. ar8 14:24 No provider procedures requiring assistance completed. IV discontinued, intact, cf3 bleeding controlled, No redness/swelling at site. Pressure dressing applied. Administered Medications: 11:16 Drug: Ondansetron IVP 4 mg IVP once; over 2 minutes Route: IVP; Site: right antecubital;ar8 14:25 Follow up: Response: No adverse reaction; Nausea is decreased cf3 Medication: 11:22 VIS not applicable for this client. ar8 Outcome: 14:02 Discharge ordered by . sp3 14:24 Discharged to home ambulatory, cf3 14:24 Condition: improved 14:24 Discharge instructions given to patient, Instructed on discharge instructions, follow up and referral plans. Demonstrated understanding of instructions, follow-up care, 14:32 Patient left the ED. cf3 Signatures: Dispatcher [employer] EDMS Jesse Naqvi, RN RN jl7 Beryl Ridley RN RN ap3 Donna Lerma Kira Mcgee MD MD sp3 Ganesh العلي RN RN cf3 Kevin Hutchins RN RN ar8
--- NOTE | 2024-12-27 14:02 | EDPHYS ---
Physician Documentation [facility] Name: Jose Toscano Age: 29 yrs Sex: Male : 1995 Arrival Date: 12/27/2024 Time: 10:41 Bed 5 Private MD: ED Physician Kira Mcgee HPI: 12/27 11:02 This 29 yrs old Male presents to ER via EMS with complaints of ascites and not feeling sp3 well. 11:02 29-year-old male with history of alcohol abuse, liver cirrhosis, bipolar disease, PTSD, sp3 schizophrenia presents to the ED for recurrent ascites, worsening jaundice and diffuse abdominal pain. Patient was seen here eight days ago and transferred to [facility] where he had paracentesis. Patient states his follow-up was not till January at hepatology. He denies fever, headache, chest pain, shortness of breath, diarrhea, syncope, or any other signs or symptoms on ROS at this time.. Historical: - Allergies: 10:51 avacodo; jl7 10:51 pecan; jl7 10:51 Wasps; jl7 - PMHx: 10:51 adhd; alcohol abuse; Bi-polar; cirrhosis of liver; PTSD; Schizophrenia; esophageal jl7 varices (paracentesis); - PSHx: 10:51 dental; paracentesis; jl7 - Immunization history:: Adult Immunizations unknown. - Social history:: Smoking status: Patient reports the use of cigarette tobacco products, Patient uses alcohol. ROS: 11:04 Constitutional: Negative for fever, chills, and weight loss, Eyes: Negative for injury, sp3 pain, redness, and discharge, Neck: Negative for injury, pain, and swelling, Cardiovascular: Negative for chest pain, palpitations, and edema, Respiratory: Negative for shortness of breath, cough, wheezing, and pleuritic chest pain, Back: Negative for injury and pain, MS/Extremity: Negative for injury and deformity, Neuro: Negative for headache, weakness, numbness, tingling, and seizure, Psych: Negative for depression, anxiety, suicide ideation, homicidal ideation, and hallucinations, Allergy/Immunology: Negative for hives, rash, and allergies, Endocrine: Negative for neck swelling, polydipsia, polyuria, polyphagia, and marked weight changes, 11:04 All other systems are negative, Exam: 11:04 Constitutional: This is a well developed, well nourished patient who is awake, alert, sp3 and in no acute distress. Head/Face: Normocephalic, atraumatic. Eyes: Pupils equal round and reactive to light, extra-ocular motions intact. Lids and lashes normal. Conjunctiva and sclera are non-icteric and not injected. Cornea within normal limits. Periorbital areas with no swelling, redness, or edema. ENT: Nares patent. No nasal discharge, no septal abnormalities noted. External auditory canals are clear. Oropharynx with no redness, swelling, or masses, exudates, or evidence of obstruction, uvula midline. Mucous membranes moist. Neck: Trachea midline, no thyromegaly or masses palpated, and no cervical lymphadenopathy. Supple, full range of motion without nuchal rigidity, or vertebral point tenderness. No Meningismus. Chest/axilla: Normal chest wall appearance and motion. Nontender with no deformity. No lesions are appreciated. Respiratory: Lungs have equal breath sounds bilaterally, clear to auscultation and percussion. No rales, rhonchi or wheezes noted. No increased work of breathing, no retractions or nasal flaring. Back: No spinal tenderness. No costovertebral tenderness. Full range of motion. 11:04 Cardiovascular: Rate: tachycardic, 11:04 Abdomen/GI: Distended abdomen with fluid wave consistent with ascites, 11:04 Skin: Jaundice noted. 11:12 ECG was reviewed by the Attending Physician. EKG demonstrates sinus tachycardia at 115 sp3 bpm with normal intervals, normal QRS, normal axis and normal ST/T-segment's without evidence of acute ischemia. Vital Signs: 10:49 BP 147 / 93; Pulse 119; Resp 17; Temp 98.6; Pulse Ox 97% ; Weight 83.01 kg; Height 5 jl7 ft. 7 in. ; Pain 10/10; 11:24 BP 146 / 101; Pulse 110; Resp 15; Pulse Ox 94% ; jl7 12:35 BP 118 / 81; Pulse 108; Resp 20; Pulse Ox 100% ; ar8 13:24 BP 130 / 87; Pulse 92; Resp 15; Pulse Ox 98% ; jl7 14:20 BP 126 / 87; Pulse 94; Resp 14; Pulse Ox 96% ; cf3 10:49 Body Mass Index 28.66 (83.01 kg, 170.18 cm) jl7 10:49 Pain Scale: Adult jl7 MDM: 10:49 Medical Screening Exam initiated sp3 11:04 Data reviewed: vital signs, nurses notes, old medical records, lab test result(s), EKG, sp3 radiologic studies. ED course: 29-year-old male with liver cirrhosis with ascites. We will drain via paracentesis by interventional radiology. Remainder of workup pending. Consider discharge home versus transfer for hyperbilirubinemia depending on level.. 14:01 ED course: Patient feels much better after paracentesis. Heart rate down to 92. WBC sp3 count of body fluid 238 which is less than 300. Will discharge patient home at this time. Follow-up with his GI team.. 10 10:51 Order name: BNP; Complete Time: 11:38 sp3 12/27 10:51 Order name: Blood Culture Adult (2) sp3 12/27 10:51 Order name: CBC with Diff; Complete Time: 11:38 sp3 12/27 10:51 Order name: CMP; Complete Time: 11:38 sp3 12/27 10:51 Order name: Lactate w/ 2H reflex if indic.; Complete Time: 11:38 sp3 12/27 10:51 Order name: Protime (+inr); Complete Time: 11:38 sp3 12/27 10:51 Order name: Ptt, Activated; Complete Time: 11:38 sp3 12/27 10:51 Order name: Troponin HS; Complete Time: 11:38 sp3 12/27 12:46 Order name: Fluid Cell Count,Body; Complete Time: 14:26 sp3 12/27 12:46 Order name: Body Fluid Culture sp3 12/27 10:57 Order name: Paracentesis Proc Guidance; Complete Time: 12:45 EDMS 12/27 10:51 Order name: EKG; Complete Time: 10:52 sp3 12/27 10:51 Order name: Cardiac monitoring; Complete Time: 11:05 sp3 12/27 10:51 Order name: EKG - Nurse/Tech; Complete Time: 11:05 sp3 12/27 10:51 Order name: IV Saline Lock - Large Bore; Complete Time: 11:05 sp3 12/27 10:51 Order name: Labs collected and sent; Complete Time: 11:05 sp3 12/27 10:51 Order name: O2 Per Protocol; Complete Time: 11:05 sp3 12/27 10:51 Order name: O2 Sat Monitoring; Complete Time: 11:05 sp3 12/27 10:51 Order name: Vital Signs; Complete Time: 11:05 sp3 Administered Medications: 11:16 Drug: Ondansetron IVP 4 mg IVP once; over 2 minutes Route: IVP; Site: right antecubital;ar8 14:25 Follow up: Response: No adverse reaction; Nausea is decreased cf3 Disposition Summary: 12/27/24 14:02 Discharge Ordered Notes: Location: Home sp3 Condition: Stable sp3 Diagnosis - Liver cirrhosis, ascites sp3 Followup: sp3 - With: Private Physician - When: Upon discharge from the Emergency Department - Reason: Continuance of care Discharge Instructions: - Discharge Summary Sheet sp3 - Ascites sp3 - Cirrhosis sp3 Forms: - Medication Reconciliation Form sp3 - Antibiotic Education sp3 - Prescription Opioid Use sp3 - Patient Portal Instructions sp3 - Leadership Thank You Letter sp3 Signatures: Dispatcher [employer] EDMS Jesse Naqvi RN RN jl7 Kira Mcgee MD MD sp3 Kevin Hutchins RN RN ar8 Ganesh العلي RN cf3 Corrections: (The following items were deleted from the chart) 12:47 12:47 FLUID CELL COUNT,BODY+H.LAB.BRZ ordered. EDMS EDMS 12:47 12:47 Body Fluid Culture+BA.LAB.BRZ ordered. EDMS EDMS
[2024-12-27 14:21] LABS: Color of fluid Yellow (COLORLESS)
[2024-12-27 14:23] LABS: Color of Supernate Not Xanthochromic (Not Xantho); Fluid Total Cells Count 100
[2024-12-27 14:37] VITALS: TEMP 98.6
[2024-12-27 14:44] VITALS: BP 126/87; O2SAT 96
== END 2024-12-27 14:32 | disposition home or self-care (01) ==
LOC: ER 10:41
DX: R18.8 Other ascites (principal); K74.60 Unspecified cirrhosis of liver; Z72.0 Tobacco use
CPT/HCPCS: 93005; 87040 ×2; 87070; 85025; 36415; 89050; 85610; 83605; 85730; 84484; 80053; 83880; 49083; 96374; 99285; J2405

== ENCOUNTER → 2025-01-15 | Emergency (ER) | payer OTHER ==
[~2025-01-15] MED LIST: CEFTRIAXONE 1000 MG/VIAL ONE; FAMOTIDINE 20 MG/2 ML VIAL IV ONE; FOLIC ACID 1 MG, MULTIVITAMINS INJ 10 ML, THIAMINE HCL 200 MG in NA CHLORIDE 0.9% 1,000 ML IV ONE; Magnesium Sulfate 2gm IVPB 2 G/50 ML BAG IV ONE; NA CHLORIDE 0.9% 50 ML ONE; VITAMIN K (ADULT) 10 MG/ML ONE
--- NOTE | 2025-01-15 10:35 | RAD REPORT ---
EXAM: Chest Abd Pelvis Wo Con CLINICAL INDICATION: Male, 30 years old ABDOMINAL DISTENTION TECHNIQUE: CT chest, abdomen and pelvis was performed, without IV contrast, as per department protoco l. Axial, sagittal and coronal reconstructions were obtained. One or more of the following dose reduction techniques were used: Automated exposure control, adjustment of the mA and/or kV according to the patient size, and/or iterative reconstruction. Unless otherwise specified, incidental findings do not require dedicated imaging follow-up. [id number]. COMPARISON: 12/11/2024 FINDINGS: The lack of intravenous contrast limits the sensitivity of this exam for evaluation of solid visceral organs, vascular structures, and retroperitoneum. ---THORAX--- LOWER NECK AND CHEST WALL: Visualized thyroid gland and soft tissues are normal. MEDIASTINUM AND LYMPH NODES: No mediastinal mass or fluid collection. Normal size mediastinal, hilar, and axillary lymph nodes. Diffusely thickened esophagus may be due to varices versus esophagitis. THORACIC AORTA: No thoracic aortic aneurysm. PULMONARY ARTERIES: Caliber is within normal limits. HEART: Normal heart size. No coronary calcifications. No significant pericardial effusion. LUNGS AND AIRWAYS: Small blebs present at the right greater than left lung apices. Atelectasis presen t in the right lower lobe. No suspicious and/or stable pulmonary nodules. PLEURA: Trace right pleural effusion. No pneumothorax. ---ABDOMEN/PELVIS--- UPPER GI: Gastric wall thickening probably a manifestation of portal hypertension. LIVER: Cirrhotic liver morphology. No focal mass appreciated. GALLBLADDER/BILE DUCTS: Cholelithiasis with distended gallbladder.? PANCREAS: No mass, ductal dilation, or connie-pancreatic fluid. SPLEEN: Moderate splenomegaly. ADRENALS: No adrenal masses. KIDNEYS AND URETERS: No hydronephrosis.Limited evaluation for renal lesions in the absence of IV cont rast.Nonobstructing renal calculi. ABDOMINAL AORTA AND OTHER VESSELS: Normal caliber aorta and IVC. PERITONEUM: Large volume ascites. LYMPH NODES: No pathologic lymphadenopathy. ABDOMINAL WALL: Small fat containing umbilical hernia. SMALL BOWEL/COLON: Diffuse colonic and rectal wall thickening probably a manifestation of portal hype rtension. Normal appendix. URINARY BLADDER: Underdistended but grossly unremarkable. REPRODUCTIVE ORGANS: No pathologic process. ---COMBINED--- MUSCULOSKELETAL: No acute or suspicious osseous abnormality. ADDITIONAL FINDINGS: None. IMPRESSION: Cirrhosis with evidence of portal hypertension including reaccumulation of a large volume of ascites. No acute findings in the chest.
[2025-01-15 11:00] LABS: Absolute Lymphocytes (CBC) 1.2 K/uL (0.7-4.9); Hematocrit 30.7 % (39.6-49.0); Hemoglobin 10.6 g/dL (13.6-17.9); MCH 32.5 pg (27.0-35.0); MCHC 34.3 g/dL (32.0-36.0); MCV 94.8 fL (80-100); MPV 8.9 fL (7.6-11.3); Nucleated RBC Absolute Count 0.0 (0-0); Nucleated Red Blood Cells % 0.0 % (0-0); RBC Red Blood Cell Count 3.25 M/uL (4.33-5.43); White Blood Count 9.50 thou/uL (4.3-10.9)
[2025-01-15 11:03] LABS: PT Prothrombin Time 18.1 SECONDS (10-13.0); PTT, Activated Partial Thromb 35.0 SECONDS (27.2-37.4); Protime INR 1.62
--- NOTE | 2025-01-15 11:39 | RAD REPORT ---
EXAM: Chest Single View HISTORY: 30 years Male COUGH COMPARISON: Chest CT 01/15/2025 FINDINGS: LUNGS/PLEURA: Overall low lung volumes with similar elevated right hemidiaphragm. Basilar subsegmenta l atelectasis and/or scarring. CARDIAC/MEDIASTINUM: The cardiac silhouette is within normal limits. UPPER ABDOMEN: No significant abnormality. BONES: No acute abnormality. LINES/TUBES/OTHER: N/A IMPRESSION: Low lung volumes with likely atelectasis.
[2025-01-15 11:45] LABS: ALT/SGPT 25 U/L (16-61); AST/SGOT 129 U/L (15-37); Albumin 2.6 g/dL (3.4-5.0); Albumin/Globulin Ratio 0.6 (1.1-1.8); Alkaline Phosphatase 436 U/L (45-117); Anion Gap 12.1 mEq/L (5.0-15.0); BUN Blood Urea Nitrogen 4 mg/dL (7-18); Bilirubin Indirect, Calculated 1.3 mg/dL (0.2-0.8); Globulin 4.3 g/dL (2.3-3.5); Glucose Level 130 mg/dL (74-106); Lipase 20 U/L (13-75); Magnesium 1.3 mg/dL (1.6-2.4); NT PRO-BNP 61 pg/mL (<125); Potassium 3.1 mEq/L (3.5-5.1); Troponin High Sensitivity 6.5 pg/mL (<58.9)
--- NOTE | 2025-01-15 13:13 | EDPHYS ---
Physician Documentation [facility] Name: Jose Toscano Age: 30 yrs Sex: Male : 1995 Arrival Date: 01/15/2025 Time: 09:55 Bed 18 Private MD: ROGELIO Physician Todd Lazaro HPI: 01/15 13:03 This 30 yrs old Male presents to ER via EMS with complaints of Abdominal bia Swelling. 13:03 The patient presents with abdominal pain in the upper abdomen, in the lower abdomen, bia abdominal distention in the upper abdomen, in the lower abdomen. Onset: The symptoms/episode began/occurred 3 day(s) ago. HX ETOH , CIRRHOSIS , ASCITES. The symptoms do not radiate. Onset: The symptoms/episode began/occurred 3 day(s) ago. Associated signs and symptoms: Pertinent positives: nausea, shortness of breath. The symptoms are described as constant, crampy. Modifying factors: The symptoms are alleviated by remaining still, the symptoms are aggravated by breathing deeply, medication(s). Severity of pain: At its worst the pain was moderate in the emergency department the pain is unchanged. Severity of symptoms: At their worst the symptoms were moderate in the emergency department the symptoms are unchanged. Historical: - Allergies: 10:04 avacodo; ph 10:04 pecan; ph 10:04 Wasps; ph - PMHx: 10:04 adhd; alcohol abuse; Bi-polar; cirrhosis of liver; esophageal varices (paracentesis); ph PTSD; Schizophrenia; - PSHx: 10:04 dental; paracentesis; ph - Immunization history:: Adult Immunizations unknown. - Infectious Disease History:: Denies. - Social history:: Smoking status: Patient reports the use of cigarette tobacco products, smokes one-half pack cigarettes per day, Patient uses alcohol. - Family history:: not pertinent. ROS: 13:03 Constitutional: Negative for fever, chills, and weight loss, Eyes: Negative for injury, bia pain, redness, and discharge, ENT: Negative for injury, pain, and discharge, Neck: Negative for injury, pain, and swelling, Cardiovascular: Negative for chest pain, palpitations, and edema, Back: Negative for injury and pain, : Negative for injury, bleeding, discharge, and swelling, MS/Extremity: Negative for injury and deformity, Neuro: Negative for headache, weakness, numbness, tingling, and seizure, Psych: Negative for depression, anxiety, suicide ideation, homicidal ideation, and hallucinations, Allergy/Immunology: Negative for hives, rash, and allergies, Endocrine: Negative for neck swelling, polydipsia, polyuria, polyphagia, and marked weight changes, 13:03 Respiratory: Positive for cough, shortness of breath, 13:03 Abdomen/GI: Positive for abdominal pain, nausea, abdominal distension, 13:03 MS/extremity: Positive for swelling, of the right leg and left leg, Exam: 13:03 Constitutional: This is a well developed, well nourished patient who is awake, alert, bia and in no acute distress. Head/Face: Normocephalic, atraumatic. Eyes: Pupils equal round and reactive to light, extra-ocular motions intact. Lids and lashes normal. Conjunctiva and sclera are non-icteric and not injected. Cornea within normal limits. Periorbital areas with no swelling, redness, or edema. ENT: Nares patent. No nasal discharge, no septal abnormalities noted. Tympanic membranes are normal and external auditory canals are clear. Oropharynx with no redness, swelling, or masses, exudates, or evidence of obstruction, uvula midline. Mucous membranes moist. Neck: Trachea midline, no thyromegaly or masses palpated, and no cervical lymphadenopathy. Supple, full range of motion without nuchal rigidity, or vertebral point tenderness. No Meningismus. Chest/axilla: Normal chest wall appearance and motion. Nontender with no deformity. No lesions are appreciated. Cardiovascular: Regular rate and rhythm with a normal S1 and S2. No gallops, murmurs, or rubs. Normal PMI, no JVD. No pulse deficits. Respiratory: Lungs have equal breath sounds bilaterally, clear to auscultation and percussion. No rales, rhonchi or wheezes noted. No increased work of breathing, no retractions or nasal flaring. Back: No spinal tenderness. No costovertebral tenderness. Full range of motion. Male : Normal genitalia with no discharge or lesions. Neuro: Awake and alert, GCS 15, oriented to person, place, time, and situation. Cranial nerves II-XII grossly intact. Motor strength 5/5 in all extremities. Sensory grossly intact. Cerebellar exam normal. Normal gait. Psych: Awake, alert, with orientation to person, place and time. Behavior, mood, and affect are within normal limits. 13:03 ECG was reviewed by the Attending Physician. 13:03 Abdomen/GI: Inspection: distension, that is moderate, Bowel sounds: normal, active, Palpation: moderate abdominal tenderness, in all quadrants, Liver: no appreciated palpable abnormalities, Hernia: not appreciated, Vital Signs: 10:02 BP 140 / 96; Pulse 115; Resp 18; Temp 98.5; Pulse Ox 100% on R/A; Weight 77.11 kg; ph Height 5 ft. 7 in. ; 11:15 BP 142 / 93; Pulse 90; Resp 18; Pulse Ox 95% on R/A; db 12:00 BP 131 / 79; Pulse 103; Resp 16; Pulse Ox 95% ; db 13:00 BP 123 / 88; Pulse 102; Resp 19; Pulse Ox 98% on R/A; db 14:09 BP 138 / 70; Pulse 100; Resp 16; Pulse Ox 98% ; db 14:30 BP 130 / 75; Pulse 93; Resp 15; Pulse Ox 99% ; db 10:02 Body Mass Index 26.63 (77.11 kg, 170.18 cm) ph MDM: 09:56 Medical Screening Exam initiated bia 13:06 Differential Diagnosis altered mental status, sepsis, flu. Differential diagnosis: bia bowel obstruction, Cholelithiasis, diverticulitis, gastritis, gastroesophageal reflux disease, Mesenteric ischemia or infarction, non-specific abd pain, pancreatitis, Peptic Ulcer Disease, Prostatitis, Pyelonephritis, Ureterolithiasis, urinary tract infection. Data reviewed: vital signs, nurses notes, EMS record, lab test result(s), EKG, radiologic studies, CT scan, plain films. Consideration of Admission/Observation Patient was admitted/placed on observation. Escalation of care including admission/observation considered. I considered the following discharge prescriptions or medication management in the emergency department Medications were administered in the Emergency Department. See MAR. Independent interpretation of the following test(s) in the Emergency Department EKG: See my EKG interpretation above X-Ray: My interpretation is CXR NEG. CT Scan: My interpretation is CT ABD PELVIS. Test considered but Not performed: Ultrasound NO ABD USG. Historians other than the Patient: EMS: EMS WELL INFORMED. Care significantly affected by the following chronic conditions: ADHD, ETOH ABUSE, ESO VARCIES, PTSD. 01/15 09:58 Order name: Basic Metabolic Panel; Complete Time: 12:57 [facility] 01/15 09:58 Order name: CBC with Diff; Complete Time: 12:57 [facility] 01/15 09:58 Order name: LFT's; Complete Time: 12:57 [facility] 01/15 09:58 Order name: Magnesium; Complete Time: 12:57 [facility] 01/15 09:58 Order name: NT PRO-BNP; Complete Time: 12:57 [facility] 01/15 09:58 Order name: PT-INR; Complete Time: 12:57 [facility] 01/15 09:58 Order name: Troponin HS; Complete Time: 12:57 [facility] 01/15 09:58 Order name: Lipase; Complete Time: 12:57 [facility] 01/15 09:58 Order name: AMMONIA; Complete Time: 12:57 [facility] 01/15 09:58 Order name: Acetaminophen; Complete Time: 12:57 [facility] 01/15 09:58 Order name: ETOH Level; Complete Time: 12:57 [facility] 01/15 09:58 Order name: Ptt, Activated; Complete Time: 12:57 [facility] 01/15 09:58 Order name: Salicylate; Complete Time: 12:57 [facility] 01/15 09:58 Order name: Blood Culture Adult (2) [facility] 01/15 09:58 Order name: Lactate w/ 2H reflex if indic.; Complete Time: 12:57 [facility] 01/15 11:26 Order name: Ghost Lactate-NO COLLECT Timer [facility] 01/15 13:21 Order name: Body Fluid Cell Count [facility] 01/15 09:58 Order name: XRAY Chest (1 view); Complete Time: 12:57 [facility] 01/15 09:58 Order name: CT Chest Abdomen Pelvis W/O Contrast; Complete Time: 12:57 [facility] 01/15 13:17 Order name: Paracentesis Proc Guidance [facility]MA 01/15 09:58 Order name: EKG; Complete Time: 09:59 [facility] 01/15 09:58 Order name: Cardiac monitoring; Complete Time: 11:24 [facility] 01/15 09:58 Order name: EKG - Nurse/Tech; Complete Time: 11:24 [facility] 01/15 09:58 Order name: IV Saline Lock; Complete Time: 11:24 [facility] 01/15 09:58 Order name: Labs collected and sent; Complete Time: 11:24 [facility] 01/15 09:58 Order name: O2 Per Protocol; Complete Time: : [facility] 01/15 09:58 Order name: O2 Sat Monitoring; Complete Time: : [facility] 01/15 13:01 Order name: Misc. Order: RADIOLOGY PARACENTESIS; Complete Time: 14:21 [facility] EC:03 Rate is 105 beats/min. Rhythm is regular. QRS Gilbert is Normal. IA interval is normal. bia QRS interval is normal. QT interval is normal. No Q waves. T waves are Normal. Clinical impression: Sinus tachycardia and No evidence of ischemia. Interpreted by me. Reviewed by me. Administered Medications: 11:15 Drug: Famotidine IVP 20 mg IVP once; dilute with 10 mL 0.9% NaCl; give over 2 minutes db Route: IVP; Site: right antecubital; 14:35 Follow up: Response: No adverse reaction db 11:15 Drug: Rocephin IV 1 grams IV at per protocol once; Given slow IV push per pharmacy db instructions Route: IV; Rate: per protocol; Site: right antecubital; 14:00 Follow up: Response: No adverse reaction; IV Status: Completed infusion; IV Intake: 50mldb 11:15 Drug: Phytonadione IM 10 mg IM once Route: IM; Site: right deltoid; db 14:35 Follow up: Response: No adverse reaction db 14:10 Drug: Magnesium Sulfate IVPB 2 grams IVPB once over 2 hrs Route: IVPB; Infused Over: 2 db hrs; Site: right antecubital; 14:35 Follow up: Response: No adverse reaction; IV Status: Completed infusion db 14:10 Drug: Thiamine IV 100 mg IV at bolus once Route: IV; Rate: bolus; Site: right db antecubital; 14:35 Follow up: Response: No adverse reaction; IV Status: Completed infusion db 14:10 Drug: Banana Bag - (Multivitamin IV 1 amp, NS 0.9% IV 1000 ml, Thiamine IV 100 mg, db foLIC Acid IVPB 1 mg) IV at 125 ml/hr once Route: IV; Rate: 125 ml/hr; Site: right antecubital; 14:35 Follow up: Response: No adverse reaction; IV Status: Completed infusion; PT LEFT AMA db Disposition Summary: 01/15/25 13:13 Hospitalization Ordered Notes: Hospitalization Status: Inpatient Admission [facility] Provider: Ace Angulo cha Location: Telemetry/MedSurg (Inpatient) bia Condition: Fair bia Problem: new bia Symptoms: have improved bia Bed/Room Type: Standard bia Room Assignment: bia Diagnosis - Alcoholic cirrhosis of liver with ascites bia - Abdominal pain, Generalized bia - Hypomagnesemia bia - Alcohol abuse with intoxication bia - Hypokalemia bia Forms: - Medication Reconciliation Form bia - SBAR form bia - Leadership Thank You Letter bia Signatures: Dispatcher [employer] EDMS Todd Lazaro MD MD cha Hall, Patricia, RN RN ph Janette Greene RN RN db Corrections: (The following items were deleted from the chart) 09:59 09:59 BASIC METABOLIC PANEL+C.LAB.BRZ ordered. EDMS EDMS 09:59 09:59 CBC+H.LAB.BRZ ordered. EDMS EDMS 09:59 09:59 HEPATIC FUNCTION+C.LAB.BRZ ordered. EDMS EDMS 09:59 09:59 MAGNESIUM+C.LAB.BRZ ordered. EDMS EDMS 09:59 09:59 PROBNP+C.LAB.BRZ ordered. EDMS EDMS 09:59 09:59 PROTIME (+INR)+COAG.LAB.BRZ ordered. EDMS EDMS 09:59 09:59 Troponin High Sensitivity+C.LAB.BRZ ordered. EDMS EDMS 09:59 09:59 LIPASE+C.LAB.BRZ ordered. EDMS EDMS 09:59 09:59 UA Rfx Dom Cult if indicated+U.LAB.BRZ ordered. EDMS EDMS 09:59 09:59 AMMONIA+C.LAB.BRZ ordered. EDMS EDMS 09:59 09:59 ACETAMINOPHEN+C.LAB.BRZ ordered. EDMS EDMS 09:59 09:59 ETHANOL+C.LAB.BRZ ordered. EDMS EDMS 09:59 09:59 PTT, ACTIVATED+COAG.LAB.BRZ ordered. EDMS EDMS 09:59 09:59 SALICYLATE+C.LAB.BRZ ordered. EDMS EDMS 09:59 09:59 URINE DRUG SCREEN+UC.LAB.BRZ ordered. EDMS EDMS 09:59 09:59 BLOOD CULTURE*+BA.LAB.BRZ ordered. EDMS EDMS 09:59 09:59 LACTATE+C.LAB.BRZ ordered. EDMS EDMS 10:15 09:58 Suicide Screening ([place]er) ordered. bia ph
--- NOTE | 2025-01-15 13:13 | ER ---
Nurse's Notes [facility] Name: Jose Toscano Age: 30 yrs Sex: Male : 1995 Arrival Date: 01/15/2025 Time: 09:55 Bed 18 Private MD: Diagnosis: Alcoholic cirrhosis of liver with ascites;Abdominal pain, Generalized;Hypomagnesemia;Alcohol abuse with intoxication;Hypokalemia Presentation: 01/15 10:02 Chief complaint: EMS states: Hx of liver cirrhosis, had abdomen drained approx 2 weeks ph ago, 2L removed, abdomen is swollen again. Coronavirus screen: At this time, the client does not indicate any symptoms associated with coronavirus-19. Ebola Screen: No symptoms or risks identified at this time. Initial Sepsis Screen: Does the patient meet any 2 criteria? No. Patient's initial sepsis screen is negative. Does the patient have a suspected source of infection? No. Patient's initial sepsis screen is negative. Risk Assessment: Do you want to hurt yourself or someone else? Patient reports no desire to harm self or others. Onset of symptoms was January 15, 2025. 10:02 Method Of Arrival: EMS: [facility] 10:02 Acuity: TIESHA 2 ph Triage Assessment: 10:05 General: Appears in no apparent distress. Behavior is calm, cooperative. Pain: ph Complains of pain in abdomen. Neuro: Level of Consciousness is awake, alert, obeys commands, Oriented to person, place, time, situation. Cardiovascular: Capillary refill < 3 seconds in bilateral fingers. Respiratory: Airway is patent Respiratory effort is even, unlabored. GI: Abdomen is noted to have ascites. Derm: Skin is jaundiced. Historical: - Allergies: 10:04 avacodo; ph 10:04 pecan; ph 10:04 Wasps; ph - PMHx: 10:04 adhd; alcohol abuse; Bi-polar; cirrhosis of liver; esophageal varices (paracentesis); ph PTSD; Schizophrenia; - PSHx: 10:04 dental; paracentesis; ph - Immunization history:: Adult Immunizations unknown. - Infectious Disease History:: Denies. - Social history:: Smoking status: Patient reports the use of cigarette tobacco products, smokes one-half pack cigarettes per day, Patient uses alcohol. - Family history:: not pertinent. Screenin:00 [facility] ED Fall Risk Assessment (Adult) History of falling in the last 3 months, db including since admission No falls in past 3 months (0 pts) Confusion or Disorientation No (0 pts) Intoxicated or Sedated No (0 pts) Impaired Gait No (0 pts) Mobility Assist Device Used No (0 pt) Altered Elimination No (0 pt) Score/Fall Risk Level 0 - 2 = Low Risk Oriented to surroundings, Maintained a safe environment. Abuse screen: Denies threats or abuse. Denies injuries from another. Nutritional screening: No deficits noted. Tuberculosis screening: No symptoms or risk factors identified. Assessment: 13:00 Reassessment: Patient appears in no apparent distress at this time. Patient and/or db family updated on plan of care and expected duration. Pain level reassessed. Patient is alert, oriented x 3, equal unlabored respirations, skin warm/dry/pink. General: Appears in no apparent distress. comfortable, Behavior is calm, cooperative. Neuro: Level of Consciousness is awake, alert, obeys commands, Oriented to person, place, time, situation. Respiratory: Airway is patent Respiratory effort is even, unlabored, Respiratory pattern is regular, symmetrical. 14:11 Reassessment: PATIENT RETURNED FROM IR. 6 LITERS OF FLUID REMOVED FROM PT. db 14:20 Reassessment: Hospitalist at bedside, pt states that he does not wish to be admitted. ph 14:35 Reassessment: Pt requesting nurse at bedside, states that his ride is here and he needs ph to leave, ERP notified and AMA form signed by pt. Vital Signs: 10:02 BP 140 / 96; Pulse 115; Resp 18; Temp 98.5; Pulse Ox 100% on R/A; Weight 77.11 kg; ph Height 5 ft. 7 in. ; 11:15 BP 142 / 93; Pulse 90; Resp 18; Pulse Ox 95% on R/A; db 12:00 BP 131 / 79; Pulse 103; Resp 16; Pulse Ox 95% ; db 13:00 BP 123 / 88; Pulse 102; Resp 19; Pulse Ox 98% on R/A; db 14:09 BP 138 / 70; Pulse 100; Resp 16; Pulse Ox 98% ; db 14:30 BP 130 / 75; Pulse 93; Resp 15; Pulse Ox 99% ; db 10:02 Body Mass Index 26.63 (77.11 kg, 170.18 cm) ph ED Course: 09:55 Patient arrived in ED. sb4 09:56 Todd Lazaro MD is Attending Physician. bia 10:04 Triage completed. ph 10:05 Arm band placed on Patient placed in an exam room, on a stretcher, on pulse oximetry. ph 10:14 CT Chest Abdomen Pelvis W/O Contrast In Process Unspecified. EDMS 10:35 Initial lab(s) drawn, by me, sent to lab. First set of blood cultures drawn by me. ph Inserted saline lock: 20 gauge in right forearm, using aseptic technique. Blood collected. Flushed with 10 mL NS. 11:23 Janette Greene, RN is Primary Nurse. db 11:23 Notified ED physician of a critical lab result(s). lactate 2.3. ll1 11:35 XRAY Chest (1 view) In Process Unspecified. EDMS 13:12 Ace Angulo MD is Hospitalizing Provider. [facility] 13:49 Paracentesis Proc Guidance In Process Unspecified. EDMS 14:00 Patient has correct armband on for positive identification. Bed in low position. Call db light in reach. Side rails up X 1. 14:05 Patient moved back from radiology. db 14:35 IV discontinued, intact, bleeding controlled, No redness/swelling at site. Pressure ph dressing applied. Administered Medications: 11:15 Drug: Famotidine IVP 20 mg IVP once; dilute with 10 mL 0.9% NaCl; give over 2 minutes db Route: IVP; Site: right antecubital; 14:35 Follow up: Response: No adverse reaction db 11:15 Drug: Rocephin IV 1 grams IV at per protocol once; Given slow IV push per pharmacy db instructions Route: IV; Rate: per protocol; Site: right antecubital; 14:00 Follow up: Response: No adverse reaction; IV Status: Completed infusion; IV Intake: 50mldb 11:15 Drug: Phytonadione IM 10 mg IM once Route: IM; Site: right deltoid; db 14:35 Follow up: Response: No adverse reaction db 14:10 Drug: Magnesium Sulfate IVPB 2 grams IVPB once over 2 hrs Route: IVPB; Infused Over: 2 db hrs; Site: right antecubital; 14:35 Follow up: Response: No adverse reaction; IV Status: Completed infusion db 14:10 Drug: Thiamine IV 100 mg IV at bolus once Route: IV; Rate: bolus; Site: right db antecubital; 14:35 Follow up: Response: No adverse reaction; IV Status: Completed infusion db 14:10 Drug: Banana Bag - (Multivitamin IV 1 amp, NS 0.9% IV 1000 ml, Thiamine IV 100 mg, db foLIC Acid IVPB 1 mg) IV at 125 ml/hr once Route: IV; Rate: 125 ml/hr; Site: right antecubital; 14:35 Follow up: Response: No adverse reaction; IV Status: Completed infusion; PT LEFT AMA db Intake: 14:00 IV: 50ml; Total: 50ml. db Outcome: 13:13 Decision to Hospitalize by Provider. [facility] 14:35 AMA AMA form signed db 14:35 Condition: stable 14:35 Instructed on AMA 15:03 Patient left the ED. db Signatures: Dispatcher [employer] Todd Lo MD MD cha Hall, Patricia, RN RN Morena Oakes RN RN ll1 Janette Greene, ANJEL RN Tiffanie Perez PA-C PA-C sb4
--- NOTE | 2025-01-15 15:16 | P.CNS ---
Date of Consult: 01/15/25 Reason for Consult: Decompensated acute hepatic failure Requesting Physician: Todd Lazaro Chief Complaint: Distended abdomen History of Present Illness: Jose Toscano is a 30-year-old male with a history of alcohol abuse, cirrhosis, and ascites who was brought in via EMS due to complaints of abdominal swelling, pain in the upper abdomen and lower abdomen, as well as abdominal distension in both the upper and lower abdomen. Symptoms began 3 days ago in the setting of his known history of alcohol intoxication and cirrhosis with ascites. The abdominal symptoms do not radiate and are accompanied by nausea and shortne ss of breath. The pain is described as constant and crampy in nature. Symptoms are alleviated by remaining still and aggravated by breathing deeply. Patient had his last paracentesis approximately 2 weeks ago with 2 liters of fluid removed. Patient also endorses cough and swelling of bilateral lower extremities. ED course: 30-year-old male with known cirrhosis, esophageal varices, and recurrent ascites presenting with 3-day history of worsening abdominal distension, pain, and associated symptoms consistent with tense ascites in the setting of decompensated liver disease. Clinical presentation supported by imaging demonstrating large volume ascites and laboratory findings consistent with chronic liver disease including elevated liver enzymes, hypoalbuminemia, and new thrombocytopenia. Primary diagnosis is cirrhosis with evidence of portal hypertension and large volume ascites requiring therapeutic intervention. Plan includes: 1) Electrolyte management - replete potassium per protocol and recheck levels, replete calcium and magnesium per protocol and recheck in AM, trend lactic acid to less than 2.2. 2) Liver disease management - GI consultation with Dr. June for ongoing management, radiology-assisted paracentesis ordered for symptomatic relief. 3) Infection prophylaxis - Rocephin 1 gram IV piggyback for spontaneous bacterial peritonitis prophylaxis. 4) Supportive care - phytonadione 10 mg IM once for coagulopathy, famotidine 20 mg IV push for gastric protection. 5) Monitoring - cardiac monitoring, blood cultures, comprehensive laboratory monitoring including pending urinalysis. Patient will require close monitoring of electrolytes, liver function, and response to paracentesis. Home medications list reviewed: Yes - Past Medical/Surgical History Diabetic: No -: Liver cirrhosis -: Esophageal varices -: EtOH abuse -: ADHD -: Bipolar disorder -: PTSD -: Schizophrenia -: Paracentesis -: Dental surgery - Social History Smoking Status: Current every day smoker Alcohol use: Yes CD- Drugs: No Caffeine use: Yes Place of Residence: Home <Orestes Harden - Last Filed: 01/15/25 15:08> <Ace Angulo - Last Filed: 01/15/25 17:18> Allergies avocado Allergy (Verified 12/27/24 10:55) Anaphylaxis bee venom protein (honey bee) Allergy (Verified 12/27/24 10:55) Anaphylaxis pecan nut Allergy (Verified 12/27/24 10:55) Anaphylaxis Review of Systems 10-point ROS is otherwise unremarkable <Orestes Harden - Last Filed: 01/15/25 15:08> Physical Examination General: Alert, Oriented x3, Cooperative, Mild distress HEENT: Atraumatic, Normocephalic, Mucous membr. moist/pink, Scleral icterus Neck: Supple, JVD not distended, No Thyromegaly Respiratory: Normal air movement, Diminished Cardiovascular: No edema, Normal pulses, Regular rate/rhythm, Normal S1 S2, No gallops, No rubs, No murmurs Capillary refill: <2 Seconds Gastrointestinal: Normal bowel sounds, Soft and benign, Non-distended, No masses, No rebound, No guarding, Hepatosplenomegaly Musculoskeletal: No clubbing, No swelling, No contractures, No erythema Integumentary: No rashes, No breakdown, No significant lesion, No tenderness/swelling, Other Neurological: Normal speech, Normal tone, Sensation intact, Cranial nerves 3-12 intact, Other (BUE tremulous, asterixis) Lymphatics: No axilla or inguinal lymphadenopathy Laboratory Data (last 24 hrs) 01/15/25 01/15/25 01/15/25 10:35 10:35 10:35 WBC 9.50 Hgb 10.6 L Hct 30.7 L Plt Count 143 L PT 18.1 H INR 1.62 APTT 35.0 Sodium 137 Potassium 3.1 L BUN 4 L Creatinine 0.40 L Glucose 130 H Magnesium 1.3 L Total Bilirubin 6.1 H AST 129 H ALT 25 Alkaline Phosphatase 436 H Lipase 20 <Orestes Harden - Last Filed: 01/15/25 15:08> Laboratory Data (last 24 hrs) 01/15/25 01/15/25 01/15/25 10:35 10:35 10:35 WBC 9.50 Hgb 10.6 L Hct 30.7 L Plt Count 143 L PT 18.1 H INR 1.62 APTT 35.0 Sodium 137 Potassium 3.1 L BUN 4 L Creatinine 0.40 L Glucose 130 H Magnesium 1.3 L Total Bilirubin 6.1 H AST 129 H ALT 25 Alkaline Phosphatase 436 H Lipase 20 <Ace Angulo - Last Filed: 01/15/25 17:18> Conclusions/Impression: Decompensated cirrhosis with portal hypertension and tense ascites: Patient presented with 3 days of worsening abdominal distension and crampy abdominal pain with associated dyspnea and nausea. Exam notable for jaundice; imaging showed cirrhosis with portal hypertension, splenomegaly, and large-volume ascites. Radiology-assisted paracentesis was ordered for symptomatic relief; procedure was completed with 6L drained. SBP prophylaxis initiated with ceftriaxone 1 g IV. Ammonia 49 without overt encephalopathy on exam. Electrolyte abnormalities and lactate: Labs notable for hypokalemia (K 3.1) and hypomagnesemia (Mg 1.3) with hypocalcemia (Ca 7.7) in the setting of hypoalbuminemia (albumin 2.6). Repletion was initiated per protocol with plan to recheck levels in the morning; patient left prior to repeat labs. Initial lactate 2.3 with plan to trend to <2.2. Alcohol use disorder, acute alcohol intoxication: Serum alcohol level 270; patient was clinically not intoxicated, free from distracting pain, and demonstrated intact insight, judgment, and reasoning at time of exam for inpatient admission. Alcohol cessation resources and risks of continued use were discussed. He declined admission and further in-hospital treatment. Coagulopathy/thrombocytopenia and anemia: Given underlying liver disease, vitamin K (phytonadione) 10 mg IM x1 was administered. Platelets 143 (new thrombocytopenia since last visit) and chronic stable anemia (Hgb 10.6, Hct 30.7) were noted; no active bleeding was observed. Continued monitoring had been planned, but patient departed AMA. Esophageal varices/esophagitis: CT demonstrated diffusely thickened esophagus with varices versus esophagitis consistent with prior history. No active hematemesis or melena reported. GI follow-up was planned; famotidine 20 mg IV was given for gastric protection. Cardiopulmonary findings: EKG showed sinus tachycardia at 105 bpm without ischemia. BNP 61, troponin 6.5 without ischemic changes. CXR showed low lung volumes with likely atelectasis; CT noted right lower-lobe atelectasis and apical blebs. Oxygen saturation remained 100% on room air. Biliary disease: CT revealed cholelithiasis with gallbladder distention; no acute cholecystitis was diagnosed during this visit. Outpatient follow-up recommended. Infectious evaluation: Blood cultures obtained; urinalysis and urine drug screen were ordered and pending at the time of departure. Ceftriaxone started empirically for SBP prophylaxis given tense ascites. Disposition/AMA: After extensive discussion detailing the risks of foregoing further evaluation and treatmentincluding , permanent disability, prolonged hospitalization, and prolonged illnessthe patient declined admission and further in-hospital care, requesting discharge to home with his girlfriend. He demonstrated decision-making capacity and was not under duress. The ED attending independently held a similar riskbenefit discussion with the same outcome. Return precautions were provided, including worsening abdominal pain or distension, fever, vomiting, hematemesis or melena, confusion, jaundice progression, dyspnea, chest pain, or syncope, and urgent follow-up with GI and hepatology was recommended. Critical Care: No Time Spent Managing Pts care (In Minutes): 57 <Orestes Harden - Last Filed: 01/15/25 15:08> Physician Review: Patient Assessed, Agree with Above Assessment and Plan <Ace Angulo - Last Filed: 01/15/25 17:18>
[2025-01-15 17:42] VITALS: TEMP 98.5
[2025-01-15 17:48] VITALS: BP 130/75; O2SAT 99
[2025-01-15 18:55] LABS: Color of Supernate Xanthochromic (Not Xantho); Color of fluid Yellow (COLORLESS)
[2025-01-15 18:58] LABS: Fluid Total Cells Count 100
--- NOTE | 2025-01-16 08:40 | RAD REPORT ---
PROCEDURE: ULTRASOUND GUIDED PARACENTESIS Procedural Provider: Chino Sherman M.D. Pre-procedure diagnosis: Recurrent ascites Post-procedure diagnosis: Same as above. CLINICAL INDICATION: Uncomplicated ascites. Male, 30 years old. ASCITES- SEND TO LAB PER ER COMPLICATIONS: No immediate complications. IMPRESSION: Ultrasound guided paracentesis, yielding 6000 mL of straw-colored fluid. PLAN: Aspirated fluid was not sent for analysis. PROCEDURE DETAILS: Consent: Informed consent for the procedure including risks, benefits and alternatives was obtained a nd time-out was performed prior to the procedure. Preparation: The site was prepared and draped using maximal sterile barrier technique including cutan eous antisepsis. Sedation: None Procedure: Initial limited abdominal ultrasound was performed and a large amount of ascites was seen. A safe window for paracentesis was identified with ultrasound to [place] a suitable access site. Local anesthesia was administered. The peritoneal cavity was accessed, and fluid return confirmed pos ition. A catheter was placed and ascites was drained. The catheter was removed, and a sterile bandage was applied. [id number]. Estimated blood loss: Less than 10 mL.
== END ==
LOC: ER 09:55
DX: K70.31 Alcoholic cirrhosis of liver with ascites (principal); E83.42 Hypomagnesemia; E87.6 Hypokalemia; F10.129 Alcohol abuse with intoxication, unspecified; Y90.8 Blood alcohol level of 240 mg/100 ml or more
CPT/HCPCS: 93005; 87040 ×2; 85025; 80048; 36415; 82140; 89050; 83735; 84157; 85610; 80076; 83605; 85730; 84484; 83690; 83880; 71250; 74176; 71045; 49083; 80143; 80179; 82077; J3411 ×2; J3475; J3430; J7030 ×2; J0696; 96365; 96367; 96368; 96372; 96375; 99285